=== PATIENT | female | born 1945 | race Caucasian/White ===

== ENCOUNTER 2023-02-26 10:16 | Inpatient (IN) | payer OTHER, BC ==
--- OUTSIDE RECORDS SUMMARY | 2023-03-04 11:31 | XMS REPORT | Continuity of Care Document ---
:1945 Author Organization [facility] t Address [address] [facility] [address] [place] [address] Care Team Providers Name Role Phone Ryann Barrios MD Primary Care Physician CHRISTIANO GONZALES Attending Clinician Unavailable Irais Person MD Attending Clinician Mariana CORADO, Maricarmen Attending Clinician Christiano Gonzales MD Attending Clinician IRAIS PERSON Attending Clinician Unavailable Dominique Jernigan MD Attending Clinician Ethan Singh Attending Clinician IRAIS PERSON Attending Clinician Unavailable PAULA DIXON Attending Clinician Unavailable Cheli Attending Clinician Unavailable Ryann Barrios Attending Clinician Unavailable MANDIE LARA Attending Clinician Unavailable MYA HARDEN Attending Clinician Unavailable Himanshu Del Valle Attending Clinician Unavailable JAMES SAMUEL Attending Clinician Unavailable IVANNA PAVON Attending Clinician Unavailable MARIELA ROMERO Attending Clinician Unavailable IRAIS PERSON Admitting Clinician Unavailable Jonathan_Thien Admitting Clinician Unavailable Himanshu Del Valle Admitting Clinician Unavailable Payers Payer Name Policy Type Policy Number Effective Date Expiration Date Fabricio thomson MEDICARE A B [id number] 2010 00:00:00 [place] [id number] 2012 [place] 00:00:00 MEDICARE PART A \\T\\ [id number] B - MEDICARE MEDICARE SUPPLEMENT [id number] [place]: [id number] 2010 [employer] 00:00:00 [place] [id number] 2012 - PLAN F (MEDICARE 00:00:00 SUPPLEMENT) Problems Condition Condition Condition Status Onset Resolution Last Treating Co mments Source Name Details Category Date Date Treatment Clinician Date Acute Acute Disease Active [facility] respirator respirator 5-12 Nely kes y y 00:00: Medical insufficie insufficie 00 Ce nter ncy ncy 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 tic hernia 5-10 Co llege 00:00: of 00 Medicin e [id number] Problem Active Common [facility] [id number] Problem Active Common [facility] [id number] Problem Active Common [facility] [id number] Problem Active [facility] Anemia Anemia Problem Active [facility] Essential Essential Problem Active [facility] hypertensi Hypertensi da on on Medical Group Ecchymosis Ecchymosis Problem Active [facility] Gastroesop Gastroesop Problem Active M [facility] hageal hageal da reflux Reflux Medical disease Disease Group Fatigue Fatigue Problem Active [facility] Computed Computed Problem Active [facility] tomography Tomography da result Result Medical abnormal Abnormal Group 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 Nely kes geal geal Medical hernia s/p hernia s/p Ce nter EGD, EGD, robotic robotic laparoscop laparoscop ic GPEH ic GPEH repair, repair, gastropexy gastropexy , , bilateral bilateral ChT ChT placement placement 02/17/2023 02/17/2023 Allergies, Adverse Reactions, Alerts Allergy Allergy Status Severity Reaction(s) Onset Inactive Treating Comm ents Source Name Type Date Date Clinician CODEINE Allergy Active SLE 02-16 00:00: 00 Codeine Propensi Active Hives, [facility]: Medical reaction 00 Center s Aspirin Propensi Active GI [facility] ty to 5-10 College adverse 00:00: of reaction 00 Medicin s to e drug Denosuma Propensi Active Other (See Ba ylor b ty to Comments) 02-15 College adverse 00:00: of reaction 00 Medicin s to e drug Codeine Propensi Active Itching [facility] ty to 9-06 College adverse 00:00: of reaction 00 Medicin s to e drug Morphine Propensi Active [facility] ty to 8-24 College adverse 00:00: of reaction 00 Medicin s to e drug Acetamin Propensi Active 2011-10 [facility] ophen ty to 0-11 [place] adverse 00:00: of reaction 00 Medicin s to e drug Diphenhy Propensi Active 2011-10 [facility] dramine ty to 0-11 College adverse 00:00: of reaction 00 Medicin s to e drug Aspirin Allergy Active Fatal Abdominal [facility] [facility] to pain da substan Medical e Group Codeine Allergy Active Moderate Other [facility] to to severe da [facility] Medical e Group codeine Drug Active Common allergy [facility] Social History Social Habit Start Date Stop Date Quantity Comments Source Gender identity [facility] Sexual orientation [facility] [employer] History of Tobacco Common [facility] Exposure to 2023-02-06 2023-02-16 Not sure [facility] SARS-CoV-2 (event) 00:00:00 17:08:00 Medica l Center Tobacco use and 2023-02-15 2023-02-15 Smokeless tobacco [facility] [place] exposure 00:00:00 00:00:00 non-user of Medicine Alcohol intake 2023-02-15 2023-02-15 Lifetime [facility] Col lege 00:00:00 00:00:00 non-drinker of Medicine (finding) History of Social 2023-02-15 2023-02-15 [facility] College function 00:00:00 00:00:00 of Medicine Sex [birth year] [facility] [address] Nely kes 00:00:00 00:00:00 Medical Center Smoking Status Start Date Stop Date Source Never smoked tobacco [facility] of Medicine Medications Ordered Filled Start Stop Current Ordering Indication Dosage Frequency Signature Comments Components Source Medication Medication Date Date Medication? Clinician (SIG) Name Name lidocaine Yes 2{patch Q24H Place [address] (LIDODERM) 03-04 } patches [facility] 4 % patch 00:00: onto the Medi tony 00 skin in Center the morning. ramipriL 2023- Yes 10mg QD Take [address] [facility] (ALTACE) 10 03-04 05-26 capsule [facility] MG capsule 00:00: 23:59 (10 mg Medi tony 00 :00 total) by Center mouth in the morning. HYDROcodone 2022- No 1{tbl} Take [address] [facility] - [facility] 12:18: 00:00 mouth Medic al 5-325) 42 :00 every 4 Center 5-325 mg (four) per tablet hours as needed. folic acid Yes folic acid [facility] (FOLVITE) 1 - 1 mg [facility] MG tablet 12:18: tablet Medica l 41 TAKE 1 Center TABLET BY MOUTH EVERY DAY cholecalcif Yes Vitamin D3 [facility] en, 03-03 100 mcg [facility] vitamin D3, 12:18: (4,000 Medi tony (Vitamin 41 unit) Center D3) 100 mcg capsule (4,000 1TAB PO QD unit) Cap erythromyci Yes 250mg Take 6.[address] n 5-26 mLs (250 [facility] ethylsuccin 00:00: mg total) M edical ate (EES) 00 by mouth Center 200 mg/5 mL in the suspension morning and 6.3 mLs (250 mg total) at noon and 6.3 mLs (250 mg total) in the evening. Take with meals. calcium 2023- Yes 500mg Take [address] [facility] carbonate 5-26 05-25 tablet [facility] (TUMS) 500 00:00: 23:59 (500 mg Med ical mg chewable 00 :00 total) by [address] ter tablet mouth 3 (three) times daily as needed. levalbutero 2023- Yes 1.26mg Take [address] [address] l (XOPENEX) 03-03 05-25 (1.26 mg [facility] 0.63 mg/3 00:00: 23:59 total) by Me dical mL 00 :00 nebulizati Center nebulizer on every 4 solution (four) hours. HYDROcodone 2022- Yes 1{tbl} Take [address] -acetaminop - 06-05 tablet by Nely richards hen (NORCO 00:00: 23:59 mouth Medic al 5-325) 00 :00 every 4 Center 5-325 mg (four) per tablet hours as needed for up to 10 days. Max Daily Amount: 6 tablets aluminum & 2022- Yes 30mL Take [address] [facility] magnesium - 06-05 mLs by [facility] hydroxide-s 00:00: 23:59 mouth Medi tony imethicone 00 :00 every 6 Center (MAALOX (six) PLUS) hours as 400-400-40 needed for mg/5 mL up to 10 suspension days. ondansetron 2022- Yes 4mg Take [address] [facility] (ZOFRAN) 4 03-03 06-02 tablet (4 [facility] MG tablet 00:00: 23:59 mg total) Me dical 00 :00 by mouth Center every 8 (eight) hours as needed for Nausea for up to 7 days. acetylcyste 2022- No 2mL Q.5D Take [address] ine 20% - 05-27 by [facility] (MucoMYST) 00:00: 00:00 nebulizati Medical 200 mg/mL 00 :00 on in the Cente r (20 %) morning nebulizer and 2 mLs solution before bedtime. . folic acid Yes folic acid [facility] (FOLVITE) 1 5-12 1 mg [facility] MG tablet 06:23: tablet Medica l 20 TAKE 1 Center TABLET BY MOUTH EVERY DAY HYDROcodone 2022-0 Yes 1{tbl} Take [address] -acetaminop 5-12 tablet by [facility] tabatha (NORCO 06:23: mouth Medica l 5-325) 20 every 4 Center 5-325 mg (four) per tablet hours as needed. cholecalcif 0 Yes Vitamin D3 [facility] en, 5-12 [facility] vitamin D[facility], 06:23: (4,000 Medi tony (Vitamin 20 unit) Center D3) 100 mcg capsule (4,000 1TAB PO QD unit) Cap Aspirin-Caf Yes Take by Junior kemp (BC 5-10 mouth. [place] FAST PAIN 13:27: of RELIEF OR) 48 Medicin e famotidine 0 Yes 20mg Take 1 [facility] (PEPCID) 20 5-10 Tablet by Col lege MG tablet 13:27: mouth two of 48 times Medicin daily. e folic acid 0 Yes 1mg Take 1 [facility] (FOLVITE) 1 5-10 Tablet by Col lege MG tablet 13:27: mouth of 48 daily. Medicin e sucralfate 0 Yes 1g Take 1 [facility] (CARAFATE) 5-10 Tablet by [facility]aran ege 1 g tablet 13:27: mouth 3 of 48 times Medicin daily. e Ramipril 5 0 Yes 5mg 5 mg. [facility] MG CAPS 5-10 [place] 13:27: of 48 Medicin e prednisoLON Yes 1[drp] Place 1 [facility] E acetate 5-10 Drop into Colle (PRED 13:27: the right of FORTE) 1 % 48 eye 3 Medicin ophthalmic times e suspension daily. hydrocodone 0 Yes 1{tbl} Take 1 [facility] -acetaminop 5-10 Tablet by Col lege hen (NORCO) 13:27: mouth of 5-325 mg 48 every 4 Medicin tablet hours as e needed. dexamethaso Yes Inject Bay[facility] or ne 5-10 into the College (DECADRON) 13:27: muscle of 4 mg/mL 48 once. Medicin injection e Cholecalcif 0 Yes Vitamin D3 [facility] 100 5-10 100 mcg College MCG (4000 13:27: (4,000 of UT) CAPS 48 unit) Medicin capsule e 1TAB PO QD calcitonin, 2023-0 Yes 1{spray 1 [place] by [facility] bertin, 5-10 } Nasal College (MIACALCIN) 13:27: route of 200 48 daily. Medicin UNIT/ACT e nasal spray famotidine 2023-0 Yes 20mg Q.5D Take 1 [facility] (PEPCID) 20 4-25 tablet (20 Nely kes MG tablet 00:00: mg total) Med ical 00 by mouth Center in the morning and 1 tablet (20 mg total) before bedtime. predniSONE 2023-0 Yes 10mg QD Take 1 [facility] (DELTASONE) 4-25 tablet (10 Nely kes 10 MG 00:00: mg total) Medical tablet 00 by mouth Center in the morning. omeprazole 2023-0 Yes 20mg QD Take 1 [facility] (PriLOSEC) 4-25 capsule [facility] 20 MG 00:00: (20 mg Medical capsule 00 total) by Center mouth in the morning. sucralfate 2023-0 Yes 1g [id number] Take [address] [facility] (CARAFATE) 4-25 [id number] tablet (1 [facility] 1 gram 00:00: 3D g total) Medical tablet 00 by mouth Center in the morning and 1 tablet (1 g total) at noon and 1 tablet (1 g total) in the evening. famotidine 2023-0 Yes 20mg Q.5D Take 1 [facility] (PEPCID) 20 4-25 tablet (20 Nely kes MG tablet 00:00: mg total) Med ical 00 by mouth Center in the morning and 1 tablet (20 mg total) before bedtime. predniSONE 2023-0 Yes 10mg QD Take 1 [facility] (DELTASONE) 4-25 tablet (10 Nely kes 10 MG 00:00: mg total) Medical tablet 00 by mouth Center in the morning. omeprazole 2023-0 Yes 20mg QD Take 1 [facility] (PriLOSEC) 4-25 capsule [facility] 20 MG 00:00: (20 mg Medical capsule 00 total) by Center mouth in the morning. sucralfate 2023-0 Yes 1g [id number] Take [address] [facility] (CARAFATE) 4-25 [id number] tablet (1 [facility] 1 gram 00:00: 3D g total) Medical tablet 00 by mouth Center in the morning and 1 tablet (1 g total) at noon and 1 tablet (1 g total) in the evening. ramipriL 2023-0 Yes 5mg QD Take [address] [facility] (ALTACE) 5 3-25 capsule (5 [facility] MG capsule 00:00: mg total) Me dical 00 by mouth Center in the morning. ramipriL 2023-0 2023- No 5mg QD Take [address] [facility] (ALTACE) 5 3-25 05-26 capsule (5 Nely kes MG capsule 00:00: 00:00 mg total) M edical 00 :00 by mouth Center in the morning. Estradiol Estradiol 1-0 No 0.1 MG/GM 0.1 MG/GM 06-09 00:00: 00 Estradiol Estradiol 2021-0 No 0.1 MG/GM 0.1 MG/GM 06-09 00:00: 00 Estradiol Estradiol 2021-0 No 0.1 MG/GM 0.1 MG/GM 06-09 00:00: 00 Omeprazole Omeprazole No QD 20 MG 20 MG Folic Acid Folic Acid No 1{table QD 1 MG 1 MG t} Hydroxychlo Hydroxychlo No roquine roquine Sulfate 200 Sulfate 200 MG MG Minocycline Minocycline No 1{capsu BID HCl 100 MG HCl 100 MG le} Movantik 25 Movantik 25 No 1{table QD MG MG t_in_th e_morni ng} Ramipril 5 Ramipril 5 No 1{capsu QD MG MG le} Calcitonin Calcitonin No QD ([place]) ([place]) 200 200 UNIT/ACT UNIT/ACT Ferrous Ferrous No Fumarate Fumarate 325 (106 325 (106 Fe) MG Fe) MG Folic Acid Folic Acid No 1{table QD 1 MG 1 MG t} Forteo 620 Forteo 620 No .08{ml} QD MCG/2.48ML MCG/2.48ML Vitamin D Vitamin D No Omeprazole Omeprazole No QD 20 MG 20 MG Folic Acid Folic Acid No 1{table QD 1 MG 1 MG t} Hydroxychlo Hydroxychlo No roquine roquine Sulfate 200 Sulfate 200 MG MG Minocycline Minocycline No 1{capsu BID HCl 100 MG HCl 100 MG le} Movantik 25 Movantik 25 No 1{table QD MG MG t_in_th e_morni ng} Ramipril 5 Ramipril 5 No 1{capsu QD MG MG le} Calcitonin Calcitonin No QD ([place]) ([place]) 200 200 UNIT/ACT UNIT/ACT Ferrous Ferrous No Fumarate Fumarate 325 (106 325 (106 Fe) MG Fe) MG Folic Acid Folic Acid No 1{table QD 1 MG 1 MG t} alendronate alendronate No alendronat [place] 70 mg 70 mg e 70 mg da tablet TAKE tablet TAKE tablet Medical 1 TABLET BY 1 TABLET BY TAKE 1 Group MOUTH EVERY MOUTH EVERY TABLET BY WEEK WEEK MOUTH EVERY WEEK amoxicillin amoxicillin No amoxicilli [facility] 500 500 n 500 da mg-potassiu mg-potassiu mg-potassi Medical m m um Group clavulanate clavulanate clavulanat 125 mg 125 mg e 125 mg tablet TAKE tablet TAKE tablet 1 TABLET BY 1 TABLET BY TAKE 1 MOUTH EVERY MOUTH EVERY TABLET BY 12 HOURS 12 HOURS MOUTH FOR 7 DAYS FOR 7 DAYS EVERY 12 DIRECTED DIRECTED HOURS FOR 7 DAYS DIRECTED calcitonin calcitonin No calcitonin [place] (salmon) (salmon) (salmon) da 200 200 200 Medical unit/actuat unit/actuat unit/actua Group ion nasal ion nasal tion nasal spray SPRAY spray SPRAY spray ONCE IN ONE ONCE IN ONE SPRAY ONCE NOSTRIL NOSTRIL IN ONE DAILY DAILY NOSTRIL DAILY diclofenac diclofenac No diclofenac [place] 1 % topical 1 % topical 1 % d a gel APPLY 2 gel APPLY 2 topical Medical GRAMS GRAMS gel APPLY Group TOPICALLY TOPICALLY 2 GRAMS TO THE TO THE TOPICALLY AFFECTED AFFECTED TO THE AREA TWICE AREA TWICE AFFECTED DAILY DAILY AREA TWICE DAILY fentanyl 25 fentanyl 25 No fentanyl [facility] mcg/hr mcg/hr 25 mcg/hr da transdermal transdermal transderma Medical patch APPLY patch APPLY l patch Group 1 PATCH 1 PATCH APPLY 1 TOPICALLY TOPICALLY PATCH TO THE SKIN TO THE SKIN TOPICALLY EVERY 72 EVERY 72 TO THE HOURS HOURS SKIN EVERY 72 HOURS FeroSul 325 FeroSul 325 No FeroSul [place] mg (65 mg mg (65 mg 325 mg (65 da iron) iron) mg iron) Medical tablet TAKE tablet TAKE tablet Group 1 TABLET BY 1 TABLET BY TAKE 1 MOUTH TWICE MOUTH TWICE TABLET BY DAILY DAILY MOUTH TWICE DAILY folic acid folic acid No folic acid [place] 1 mg tablet 1 mg tablet 1 mg d a TAKE 1 TAKE 1 tablet Medical TABLET BY TABLET BY TAKE 1 [place] up MOUTH EVERY MOUTH EVERY TABLET BY DAY DAY MOUTH EVERY DAY Forteo 20 Forteo 20 No Forteo 20 [place] mcg/dose mcg/dose mcg/dose da (600 (600 (600 Medical mcg/2.4 mL) mcg/2.4 mL) mcg/2.4 Group subcutaneou subcutaneou mL) s pen s pen subcutaneo injector injector us pen INJECT 20 INJECT 20 injector MCG UNDER MCG UNDER INJECT 20 THE SKIN THE SKIN MCG UNDER EVERY DAY EVERY DAY THE SKIN EVERY DAY hydrocodone hydrocodone No hydrocodon [place] 10 10 e 10 da mg-acetamin mg-acetamin mg-acetami Medical ophen 325 ophen 325 nophen 325 Group mg tablet mg tablet mg tablet TAKE 1 TAKE 1 TAKE 1 TABLET BY TABLET BY TABLET BY MOUTH EVERY MOUTH EVERY MOUTH 4 TO 6 4 TO 6 EVERY 4 TO HOURS HOURS 6 HOURS NEEDED NEEDED NEEDED minocycline minocycline No minocyclin [facility] 100 mg 100 mg e 100 mg da capsule capsule capsule Medica l TAKE 1 TAKE 1 TAKE 1 Group CAPSULE BY CAPSULE BY CAPSULE BY MOUTH EVERY MOUTH EVERY MOUTH 12 HOURS 12 HOURS EVERY 12 HOURS Movantik 25 Movantik 25 No Movantik [place] mg tablet mg tablet 25 mg da TAKE 1 TAKE 1 tablet Medical TABLET BY TABLET BY TAKE 1 [place] up MOUTH EVERY MOUTH EVERY TABLET BY DAY DAY MOUTH EVERY DAY nitrofurant nitrofurant No nitrofuran [place] oin oin toin da monohydrate monohydrate monohydrat Medical /macrocryst /macrocryst e/macrocry Group als 100 mg als 100 mg stals 100 capsule capsule mg capsule TAKE 1 TAKE 1 TAKE 1 CAPSULE BY CAPSULE BY CAPSULE BY MOUTH TWICE MOUTH TWICE MOUTH A WEEK A WEEK TWICE A ALTERNATING ALTERNATING WEEK WITH ONE OF WITH ONE OF ALTERNATIN PYRIDIUM PYRIDIUM G WITH ONE OF PYRIDIUM omeprazole omeprazole No omeprazole [place] 20 mg 20 mg 20 mg da capsule,del capsule,del capsule,de Medical ayed ayed layed Group release release release TAKE 1 TAKE 1 TAKE 1 CAPSULE BY CAPSULE BY CAPSULE BY MOUTH EVERY MOUTH EVERY MOUTH DAY DAY EVERY DAY phenazopyri phenazopyri No phenazopyr [place] dine 200 mg dine 200 mg idine 200 da tablet TAKE tablet TAKE mg tablet Medical 1 TABLET BY 1 TABLET BY TAKE 1 Group MOUTH TWICE MOUTH TWICE TABLET BY A WEEK A WEEK MOUTH ALTERNATING ALTERNATING TWICE A WITH 1 WEEK WITH 1 WEEK WEEK OF MACROBID OF MACROBID ALTERNATIN G WITH 1 WEEK OF MACROBID prednisone prednisone No prednisone [place] 10 mg 10 mg 10 mg da tablet TAKE tablet TAKE tablet Medical 1 TABLET BY 1 TABLET BY TAKE 1 Group MOUTH EVERY MOUTH EVERY TABLET BY DAY DAY MOUTH EVERY DAY ramipril 5 ramipril 5 No ramipril 5 [place] mg capsule mg capsule mg capsule da TAKE 1 TAKE 1 TAKE 1 Medical CAPSULE BY CAPSULE BY CAPSULE BY Group MOUTH EVERY MOUTH EVERY MOUTH DAY DAY EVERY DAY sucralfate sucralfate No sucralfate [place] 1 gram 1 gram 1 gram da tablet TAKE tablet TAKE tablet Medical 1 TABLET BY 1 TABLET BY TAKE 1 Group MOUTH THREE MOUTH THREE TABLET BY TIMES DAILY TIMES DAILY MOUTH THREE TIMES DAILY Xiidra 5 % Xiidra 5 % No Xiidra 5 % [facility] eye drops eye drops eye drops da in a in a in a Medical dropperette dropperette dropperett Group e Zenpep Zenpep No Zenpep [place] 40,000 40,000 40,000 da unit-126,00 unit-126,00 unit-126,0 Medical 0 0 00 Group unit-168,00 unit-168,00 unit-168,0 0 unit 0 unit 00 unit capsule,del capsule,del capsule,de ayed ayed layed release release release TAKE 1 TAKE 1 TAKE 1 CAPSULE BY CAPSULE BY CAPSULE BY MOUTH THREE MOUTH THREE MOUTH TIMES DAILY TIMES DAILY THREE BEFORE BEFORE TIMES MEALS MEALS DAILY BEFORE MEALS alendronate alendronate No alendronat [place] 70 mg 70 mg e 70 mg da tablet TAKE tablet TAKE tablet Medical 1 TABLET BY 1 TABLET BY TAKE 1 Group MOUTH EVERY MOUTH EVERY TABLET BY WEEK WEEK MOUTH EVERY WEEK amoxicillin amoxicillin No amoxicilli [facility] 500 500 n 500 da mg-potassiu mg-potassiu mg-potassi Medical m m um Group clavulanate clavulanate clavulanat 125 mg 125 mg e 125 mg tablet TAKE tablet TAKE tablet 1 TABLET BY 1 TABLET BY TAKE 1 MOUTH EVERY MOUTH EVERY TABLET BY 12 HOURS 12 HOURS MOUTH FOR 7 DAYS FOR 7 DAYS EVERY 12 DIRECTED DIRECTED HOURS FOR 7 DAYS DIRECTED calcitonin calcitonin No calcitonin [place] (salmon) (salmon) (salmon) da 200 200 200 Medical unit/actuat unit/actuat unit/actua Group ion nasal ion nasal tion nasal spray SPRAY spray SPRAY spray ONCE IN ONE ONCE IN ONE SPRAY ONCE NOSTRIL NOSTRIL IN ONE DAILY DAILY NOSTRIL DAILY diclofenac diclofenac No diclofenac [place] 1 % topical 1 % topical 1 % d a gel APPLY 2 gel APPLY 2 topical Medical GRAMS GRAMS gel APPLY Group TOPICALLY TOPICALLY 2 GRAMS TO THE TO THE TOPICALLY AFFECTED AFFECTED TO THE AREA TWICE AREA TWICE AFFECTED DAILY DAILY AREA TWICE DAILY fentanyl 25 fentanyl 25 No fentanyl [place] mcg/hr mcg/hr 25 mcg/hr da transdermal transdermal transderma Medical patch APPLY patch APPLY l patch Group 1 PATCH 1 PATCH APPLY 1 TOPICALLY TOPICALLY PATCH TO THE SKIN TO THE SKIN TOPICALLY EVERY 72 EVERY 72 TO THE HOURS HOURS SKIN EVERY 72 HOURS FeroSul 325 FeroSul 325 No FeroSul [place] mg (65 mg mg (65 mg 325 mg (65 da iron) iron) mg iron) Medical tablet TAKE tablet TAKE tablet Group 1 TABLET BY 1 TABLET BY TAKE 1 MOUTH TWICE MOUTH TWICE TABLET BY DAILY DAILY MOUTH TWICE DAILY folic acid folic acid No folic acid [place] 1 mg tablet 1 mg tablet 1 mg d a TAKE 1 TAKE 1 tablet Medical TABLET BY TABLET BY TAKE 1 [place] up MOUTH EVERY MOUTH EVERY TABLET BY DAY DAY MOUTH EVERY DAY Forteo 20 Forteo 20 No Forteo 20 [place] mcg/dose mcg/dose mcg/dose da (600 (600 (600 Medical mcg/2.4 mL) mcg/2.4 mL) mcg/2.4 Group subcutaneou subcutaneou mL) s pen s pen subcutaneo injector injector us pen INJECT 20 INJECT 20 injector MCG UNDER MCG UNDER INJECT 20 THE SKIN THE SKIN MCG UNDER EVERY DAY EVERY DAY THE SKIN EVERY DAY hydrocodone hydrocodone No hydrocodon [place] 10 10 e 10 da mg-acetamin mg-acetamin mg-acetami Medical ophen 325 ophen 325 nophen 325 Group mg tablet mg tablet mg tablet TAKE 1 TAKE 1 TAKE 1 TABLET BY TABLET BY TABLET BY MOUTH EVERY MOUTH EVERY MOUTH 4 TO 6 4 TO 6 EVERY 4 TO HOURS HOURS 6 HOURS NEEDED NEEDED NEEDED minocycline minocycline No minocyclin [place] 100 mg 100 mg e 100 mg da capsule capsule capsule Medica l TAKE 1 TAKE 1 TAKE 1 Group CAPSULE BY CAPSULE BY CAPSULE BY MOUTH EVERY MOUTH EVERY MOUTH 12 HOURS 12 HOURS EVERY 12 HOURS Movantik 25 Movantik 25 No Movantik [place] mg tablet mg tablet 25 mg da TAKE 1 TAKE 1 tablet Medical TABLET BY TABLET BY TAKE 1 [place] up MOUTH EVERY MOUTH EVERY TABLET BY DAY DAY MOUTH EVERY DAY nitrofurant nitrofurant No nitrofuran [place] oin oin toin da monohydrate monohydrate monohydrat Medical /macrocryst /macrocryst e/macrocry Group als 100 mg als 100 mg stals 100 capsule capsule mg capsule TAKE 1 TAKE 1 TAKE 1 CAPSULE BY CAPSULE BY CAPSULE BY MOUTH TWICE MOUTH TWICE MOUTH A WEEK A WEEK TWICE A ALTERNATING ALTERNATING WEEK WITH ONE OF WITH ONE OF ALTERNATIN PYRIDIUM PYRIDIUM G WITH ONE OF PYRIDIUM omeprazole omeprazole No omeprazole [place] 20 mg 20 mg 20 mg da capsule,del capsule,del capsule,de Medical ayed ayed layed Group release release release TAKE 1 TAKE 1 TAKE 1 CAPSULE BY CAPSULE BY CAPSULE BY MOUTH EVERY MOUTH EVERY MOUTH DAY DAY EVERY DAY phenazopyri phenazopyri No phenazopyr [place] dine 200 mg dine 200 mg idine 200 da tablet TAKE tablet TAKE mg tablet Medical 1 TABLET BY 1 TABLET BY TAKE 1 Group MOUTH TWICE MOUTH TWICE TABLET BY A WEEK A WEEK MOUTH ALTERNATING ALTERNATING TWICE A WITH 1 WEEK WITH 1 WEEK WEEK OF MACROBID OF MACROBID ALTERNATIN G WITH 1 WEEK OF MACROBID prednisone prednisone No prednisone [place] 10 mg 10 mg 10 mg da tablet TAKE tablet TAKE tablet Medical 1 TABLET BY 1 TABLET BY TAKE 1 Group MOUTH EVERY MOUTH EVERY TABLET BY DAY DAY MOUTH EVERY DAY ramipril 5 ramipril 5 No ramipril 5 [place] mg capsule mg capsule mg capsule da TAKE 1 TAKE 1 TAKE 1 Medical CAPSULE BY CAPSULE BY CAPSULE BY Group MOUTH EVERY MOUTH EVERY MOUTH DAY DAY EVERY DAY sucralfate sucralfate No sucralfate [place] 1 gram 1 gram 1 gram da tablet TAKE tablet TAKE tablet Medical 1 TABLET BY 1 TABLET BY TAKE 1 Group MOUTH THREE MOUTH THREE TABLET BY TIMES DAILY TIMES DAILY MOUTH THREE TIMES DAILY Xiidra 5 % Xiidra 5 % No Xiidra 5 % [place] eye drops eye drops eye drops da in a in a in a Medical dropperette dropperette dropperett Group e Zenpep Zenpep No Zenpep [place] 40,000 40,000 40,000 da unit-126,00 unit-126,00 unit-126,0 Medical 0 0 00 Group unit-168,00 unit-168,00 unit-168,0 0 unit 0 unit 00 unit capsule,del capsule,del capsule,de ayed ayed layed release release release TAKE 1 TAKE 1 TAKE 1 CAPSULE BY CAPSULE BY CAPSULE BY MOUTH THREE MOUTH THREE MOUTH TIMES DAILY TIMES DAILY THREE BEFORE BEFORE TIMES MEALS MEALS DAILY BEFORE MEALS Forteo 620 Forteo 620 No .08{ml} QD MCG/2.48ML MCG/2.48ML Vitamin D Vitamin D No Omeprazole Omeprazole No QD 20 MG 20 MG Folic Acid Folic Acid No 1{table QD 1 MG 1 MG t} Hydroxychlo Hydroxychlo No roquine roquine Sulfate 200 Sulfate 200 MG MG Minocycline Minocycline No 1{capsu BID HCl 100 MG HCl 100 MG le} Movantik 25 Movantik 25 No 1{table QD MG MG t_in_th e_morni ng} Ramipril 5 Ramipril 5 No 1{capsu QD MG MG le} Calcitonin Calcitonin No QD ([place]) ([place]) 200 200 UNIT/ACT UNIT/ACT Ferrous Ferrous No Fumarate Fumarate 325 (106 325 (106 Fe) MG Fe) MG Folic Acid Folic Acid No 1{table QD 1 MG 1 MG t} Forteo 620 Forteo 620 No .08{ml} QD MCG/2.48ML MCG/2.48ML Vitamin D Vitamin D No Vital Signs Vital Name Observation Time Observation Value Comments Source WEIGHT 2023-03-02 08:49:00 54.6 kg WEIGHT 2023-03-01 07:51:00 55.1 kg WEIGHT 2023-02-28 09:00:00 55.7 kg WEIGHT 2023-02-26 09:00:00 58.106 kg WEIGHT 2023-02-25 06:00:00 59.285 kg WEIGHT 2023-02-24 09:00:00 59.8 kg WEIGHT 2023-02-21 06:12:00 58.5 kg WEIGHT 2023-02-19 01:00:00 57.1 kg HEIGHT 2023-02-16 17:00:00 149.9 cm WEIGHT 2023-02-16 17:00:00 54.931 kg WEIGHT 2023-03-02 08:49:00 54.6 kg WEIGHT 2023-03-01 07:51:00 55.1 kg WEIGHT 2023-02-28 09:00:00 55.7 kg WEIGHT 2023-02-26 09:00:00 58.106 kg WEIGHT 2023-02-25 06:00:00 59.285 kg WEIGHT 2023-02-24 09:00:00 59.8 kg WEIGHT 2023-02-21 06:12:00 58.5 kg WEIGHT 2023-02-19 01:00:00 57.1 kg HEIGHT 2023-02-16 17:00:00 149.9 cm WEIGHT 2023-02-16 17:00:00 54.931 kg WEIGHT 2023-03-02 08:49:00 54.6 kg WEIGHT 2023-03-01 07:51:00 55.1 kg WEIGHT 2023-02-28 09:00:00 55.7 kg WEIGHT 2023-02-26 09:00:00 58.106 kg WEIGHT 2023-02-25 06:00:00 59.285 kg WEIGHT 2023-02-24 09:00:00 59.8 kg WEIGHT 2023-02-21 06:12:00 58.5 kg WEIGHT 2023-02-19 01:00:00 57.1 kg HEIGHT 2023-02-16 17:00:00 149.9 cm WEIGHT 2023-02-16 17:00:00 54.931 kg Systolic blood 2023-02-15 18:28:00 157 mm[Hg] [facility] pressure Medicine Diastolic blood 2023-02-15 18:28:00 83 mm[Hg] [facility] pressure Medicine Heart rate 2023-02-15 18:28:00 85 /min [facility] Body temperature 2023-02-15 18:28:00 36.5 Harriet [facility] Body height 2023-02-15 18:28:00 149.9 cm [facility] Body weight 2023-02-15 18:28:00 56.79 kg [facility] BMI 2023-02-15 18:28:00 25.29 kg/m2 [facility] BP Diastolic 2022-11-24 00:00:00 80 mm[Hg] [facility] Height 2022-11-24 00:00:00 64 [in_i] [facility] BMI (Body Mass 2022-11-24 00:00:00 21.3 kg/m2 [facility] BP Systolic 2022-11-24 00:00:00 130 mm[Hg] [facility] Body Weight 2022-11-24 00:00:00 124 [lb_av] [facility] height 2021-10-11 14:30:00 64 [in_i] [facility] weight 2021-10-11 14:30:00 120.8 [lb_av] [facility] temperature 2021-10-11 14:30:00 97.6 [degF] [facility] bmi 2021-10-11 14:30:00 20.73 kg/m2 [facility] oximetry 2021-10-11 14:30:00 98 % [facility] respiratory rate 2021-10-11 14:30:00 16 /min [facility] on [facility] blood pressure 2021-10-11 14:30:00 163 mm[Hg] [facility] - systolic [facility] blood pressure 2021-10-11 14:30:00 82 mm[Hg] [facility] - diastolic [facility] Systolic blood 2023-03-04 08:46:00 165 mm[Hg] [facility] Diastolic blood 2023-03-04 08:46:00 80 mm[Hg] [facility] Heart rate 2023-03-04 08:46:00 88 /min [facility] Body temperature 2023-03-04 08:46:[address] [facility] Respiratory rate 2023-03-04 08:46:00 16 /min [facility] Oxygen saturation in 2023-03-04 08:46:00 92 /min [facility] Arterial blood by Medical Ce nter Pulse oximetry Body weight 2023-03-02 08:49:00 54.6 kg [facility] BMI 2023-03-02 08:49:00 24.31 kg/m2 [facility] Systolic blood 2023-02-17 12:48:00 189 mm[Hg] [facility] Diastolic blood 2023-02-17 12:48:00 82 mm[Hg] [facility] Heart rate 2023-02-17 12:48:00 70 /min [facility] Body temperature 2023-02-17 12:48:[address] [facility] Respiratory rate 2023-02-17 12:48:00 16 /min [facility] Oxygen saturation in 2023-02-17 12:48:00 100 /min [facility] Arterial blood by Medical Ce nter Pulse oximetry Body weight 2023-02-16 17:00:00 54.931 kg [facility] BMI 2023-02-16 17:00:00 24.46 kg/m2 [facility] Body height 2023-02-16 17:00:00 149.9 cm [facility] Procedures Procedure Date / Time Performing Clinician Source Performed BASIC METABOLIC PANEL 2023-03-04 05:37:[address] [facility] CBC W/PLT COUNT & AUTO 2023-03-04 05:37:00 Radha Ariza [facility] DIFFERENTIAL [place] CBC W/PLT COUNT & AUTO 2023-03-04 05:37:00 Radha Ariza [facility] DIFFERENTIAL Center (CELLAVISION MANUAL 2023-03-04 05:37:00 Radha Ariza [facility] DIFF) Center XR CHEST 1 VIEW PORTABLE 2023-03-03 07:36:00 Radha Ariza ea [facility] Medical / BEDSIDE Center BASIC METABOLIC PANEL 2023-03-03 04:35:[address] [facility] CBC W/PLT COUNT & AUTO 2023-03-03 04:35:00 Radha Ariza [facility] DIFFERENTIAL [place] CBC W/PLT COUNT & AUTO 2023-03-03 04:35:00 Radha Ariza [facility] DIFFERENTIAL Center (CELLAVISION MANUAL 2023-03-03 04:35:00 Radha Ariza [facility]) Center XR CHEST 1 VIEW PORTABLE 2023-03-02 07:42:00 Radha Ariza ea [facility] BEDSIDE [place] BASIC METABOLIC PANEL 2023-03-02 05:52:[address] [facility] CBC W/PLT COUNT & AUTO 2023-03-02 05:52:00 Radha Ariza [facility] CBC W/PLT COUNT & AUTO 2023-03-02 05:52:00 Radha Ariza [facility] XR CHEST 1 VIEW PORTABLE 2023-03-01 07:59:00 Radha Ariza ea [facility] BASIC METABOLIC PANEL 2023-03-01 05:22:[address] [facility] CBC W/PLT COUNT & AUTO 2023-03-01 05:22:00 Radha Ariza [facility] CBC W/PLT COUNT & AUTO 2023-03-01 05:22:00 Radha Ariza [facility] XR CHEST 1 VIEW PORTABLE 2023-02-28 18:33:00 Thien Geiger [facility] Rauton [place] ECG 12-LEAD 2023-02-28 15:49:[address] [facility] ECG 12-LEAD 2023-02-28 15:49:07 Unknown, Hl7 Doctor [facility] XR CHEST 1 VIEW PORTABLE 2023-02-28 14:38:00 Radha Ariza ea [facility] BEDSIDE [place] XR CHEST 1 VIEW PORTABLE 2023-02-28 07:31:00 Radha Ariza ea [facility] BEDSIDE [place] BASIC METABOLIC PANEL 2023-02-28 05:08:[address] [facility] CBC W/PLT COUNT & AUTO 2023-02-28 05:08:00 Radha Ariza [facility] CBC W/PLT COUNT & AUTO 2023-02-28 05:08:00 Radha Ariza [facility] BLOOD GAS, VENOUS 2023-02-27 15:49:00 Gina Arteaga [facility] X[facility] CHEST 1 VIEW PORTABLE 2023-02-27 07:09:00 Radha Ariza ea [facility] BASIC METABOLIC PANEL 2023-02-27 05:39:[address] [facility] CBC W/PLT COUNT & AUTO 2023-02-27 05:39:00 Radha Ariza [facility] CBC W/PLT COUNT & AUTO 2023-02-27 05:39:00 Radha Ariza [facility] XR CHEST 1 VIEW PORTABLE 2023-02-26 07:27:00 Radha Ariza ea [facility] BASIC METABOLIC PANEL 2023-02-26 05:20:[address] [facility] CBC W/PLT COUNT & AUTO 2023-02-26 05:20:00 Radha Ariza [facility] CBC W/PLT COUNT & AUTO 2023-02-26 05:20:00 Radha Ariza [facility] (CELLAVISION MANUAL 2023-02-26 05:20:00 Radha Ariza [facility] DIFF) [place] BASIC METABOLIC PANEL 2023-02-25 18:31:00 Yusuf Cunningham [facility] Lon [place] XR CHEST 1 VIEW PORTABLE 2023-02-25 06:21:00 Radha Ariza ea [facility] BASIC METABOLIC PANEL 2023-02-25 03:01:[address] [facility] CBC W/PLT COUNT & AUTO 2023-02-25 03:01:00 Radha Ariza [facility] MAGNESIUM 2023-02-25 03:01:00 Yusuf Cunningham [facility] PHOSPHORUS 2023-02-25 03:01:00 Yusuf Cunningham [facility] CBC W/PLT COUNT & AUTO 2023-02-25 03:01:00 Radha Ariza [facility] POCT-GLUCOSE METER 2023-02-24 12:03:00 Alon [facility] XR CHEST 1 VIEW PORTABLE 2023-02-24 06:05:00 Radha Ariza ea [facility] BASIC METABOLIC PANEL 2023-02-24 03:44:[address] [facility] CBC W/PLT COUNT & AUTO 2023-02-24 03:44:00 Radha Ariza [facility] CBC W/PLT COUNT & AUTO 2023-02-24 03:44:00 Radha Ariza [facility] POCT-GLUCOSE METER 2023-02-23 23:01:00 Alon [facility] POCT-GLUCOSE METER 2023-02-23 11:56:00 Alon [facility] XR CHEST 1 VIEW PORTABLE 2023-02-23 10:19:00 Gina Arteaga [facility] XR CHEST 1 VIEW PORTABLE 2023-02-23 07:35:00 Radha Ariza ea [facility] POCT-GLUCOSE METER 2023-02-23 06:02:00 Alon [facility] CBC W/PLT COUNT & AUTO 2023-02-23 05:16:00 Radha Ariza [facility] BASIC METABOLIC PANEL 2023-02-23 05:16:[address] [facility] CBC W/PLT COUNT & AUTO 2023-02-23 05:16:00 Radha Ariza [facility] CTA CHEST FOR PULMONARY 2023-02-23 00:47:00 Gina Arteaga [facility] EMBOLUS Graciela Center CT ABDOMEN/PELVIS WITH 2023-02-23 00:47:00 Bry So [facility] IV CONTRAST Center POCT-GLUCOSE METER 2023-02-22 23:35:[address] [facility] POCT-GLUCOSE METER 2023-02-22 17:12:[address] [facility] XR ABDOMEN/KUB 1 VIEW 2023-02-22 12:36:00 Yusuf Cunningham [facility] PORTABLE Lon Center POCT-GLUCOSE METER 2023-02-22 11:48:[address] [facility] XR CHEST 1 VIEW PORTABLE 2023-02-22 07:44:00 Radha Ariza ea [facility] / BEDSIDE Center POCT-GLUCOSE METER 2023-02-22 05:06:[address] [facility] CBC W/PLT COUNT & AUTO 2023-02-22 04:06:00 Radha Ariza [facility] BASIC METABOLIC PANEL 2023-02-22 04:06:[address] [facility] CBC W/PLT COUNT & AUTO 2023-02-22 04:06:00 Radha Ariza [facility] POCT-GLUCOSE METER 2023-02-22 00:37:[address] [facility] XR CHEST 1 VIEW PORTABLE 2023-02-21 06:42:00 Yusuf Cunningham [facility] / BEDSIDE Lon [place] CBC W/PLT COUNT & AUTO 2023-02-21 05:49:00 Salome Carpio [facility] CBC W/PLT COUNT & AUTO 2023-02-21 05:49:00 Radha Ariza [facility] BASIC METABOLIC PANEL 2023-02-21 03:33:[address] [facility] POCT-GLUCOSE METER 2023-02-20 17:47:00 Irais Person [facility] POCT-GLUCOSE METER 2023-02-20 15:35:00 Irais Person [facility] POCT-GLUCOSE METER 2023-02-20 11:47:00 Irais Person [facility] CALCIUM, IONIZED 2023-02-20 07:43:[facility]SE [facility] 2023-02-20 07:03:00 Irais Person [facility] XR CHEST 1 VIEW PORTABLE 2023-02-20 04:54:00 Radha Ariza ea [facility] BEDSIDE [place] CBC W/PLT COUNT & AUTO 2023-02-20 02:26:00 [facility] BASIC METABOLIC PANEL 2023-02-20 02:26:[address] [facility] MAGNESIUM 2023-02-20 02:26:00 [facility] W/[facility]T [facility] & AUTO 2023-02-20 02:26:00 Radha Ariza [facility] PHOSPHORUS 2023-02-20 02:26:00 Notjeni [facility] POCT-GLUCOSE METER 2023-02-19 23:53:00 Irais Person [facility] POCT-GLUCOSE METER 2023-02-19 17:28:00 Irais Person [facility] POCT-GLUCOSE METER 2023-02-19 11:33:00 Irais Person [facility] FL ESOPHAGUS 2023-02-19 10:25:[address] [facility] POCT-GLUCOSE METER 2023-02-19 05:29:00 Irais Person [facility] XR CHEST 1 VIEW PORTABLE 2023-02-19 05:15:00 Radha Ariza ea [facility] BEDSIDE Center CBC W/PLT COUNT & AUTO 2023-02-19 03:33:00 Halas, [facility] BASIC METABOLIC PANEL 2023-02-19 03:33:[address] [facility] MAGNESIUM 2023-02-19 03:33:00 [facility] W/[facility]T COUNT & AUTO 2023-02-19 03:33:00 Radha Ariza [facility] POCT-GLUCOSE METER 2023-02-19 01:13:00 Irais Person [facility] POCT-GLUCOSE METER 2023-02-18 18:24:00 Alon [facility] POCT-GLUCOSE METER 2023-02-18 11:35:00 Alon [facility] XR CHEST 1 VIEW PORTABLE 2023-02-18 03:08:00 Radha Ariza ea [facility] / BEDSIDE [place] CBC W/PLT COUNT & AUTO 2023-02-18 02:23:00 [facility] BLOOD GAS, ARTERIAL 2023-02-18 02:23:00 [facility] BASIC METABOLIC PANEL 2023-02-18 02:23:[address] [facility] MAGNESIUM 2023-02-18 02:23:00 [facility] CBC W/PLT COUNT & AUTO 2023-02-18 02:23:00 Radha Ariza [facility] POCT-GLUCOSE METER 2023-02-17 23:32:00 Irais Person [facility] POCT-GLUCOSE METER 2023-02-17 15:36:00 Irais Person [facility] BLOOD GAS, ARTERIAL 2023-02-17 15:20:00 [facility] CALCIUM, IONIZED 2023-02-17 15:20:00 [facility] CBC W/PLT COUNT & AUTO 2023-02-17 15:18:00 [facility] BASIC METABOLIC PANEL 2023-02-17 15:18:00 [facility] MAGNESIUM 2023-02-17 15:18:00 [facility] PROTHROMBIN TIME/INR 2023-02-17 15:18:00 [facility] CBC W/PLT COUNT & AUTO 2023-02-17 15:18:00 [facility] DIFFERENTIAL [place] XR CHEST 1 VIEW PORTABLE 2023-02-17 14:44:00 [facility] / BEDSIDE Center XR ABDOMEN/KUB 1 VIEW 2023-02-17 12:50:00 [facility] PORTABLE Center GLUCOSE-STAT LAB 2023-02-17 09:56:17 Rhona [facility] POTASSIUM-STAT LAB 2023-02-17 09:56:17 Rhona [facility] TISSUE EXAM 2023-02-17 09:53:[address] [facility] SARS-COV2/RT-PCR ([facility] & 2023-02-17 08:41:57 Irais Person [facility] REF LABS) Center RRL CRITICAL LABS 2023-02-17 08:12:25 [facility] (ABG,NA,K,H&H,GLUCOSE) [place] BLOOD GAS, ARTERIAL 2023-02-17 08:12:25 [facility] SODIUM NA-STAT LAB 2023-02-17 08:12:25 [facility] POTASSIUM-STAT LAB 2023-02-17 08:12:25 [facility] GLUCOSE-STAT LAB 2023-02-17 08:12:25 [facility] HGB/HCT (H&H) - STAT LAB 2023-02-17 08:12:25 [facility] ROBOTIC 2023-02-17 07:30:00 Irais Person [facility] LAPAROSCOPY,HERNIORRHAPH Center Y HIATAL PROCEDURE W/ DAVINCI XI 2023-02-17 07:30:[address] [facility] EGD 2023-02-17 07:30:00 Irais Person [facility] (ESOPHAGOGASTRODUODENOSC Center OPY) INSERTION, PIGTAIL 2023-02-17 07:30:00 Irais Person [facility] CATHETER, PLEURAL Center ECG 12-LEAD 2023-02-17 02:50:[address] [facility] ABORH, MANUAL 2023-02-16 20:16:[address] [facility] CT CHEST WITHOUT IV 2023-02-16 19:43:00 Yusuf Cunningham [facility] CONTRAST [facility] CBC W/PLT COUNT & AUTO 2023-02-16 18:07:00 Yusuf Cunningham [facility] DIFFERENTIAL [facility] COMPREHENSIVE METABOLIC 2023-02-16 18:07:00 Yusuf Cunningham [facility] PANEL [facility] PT/APTT 2023-02-16 18:07:00 Yusuf Cunningham [facility] TYPE AND SCREEN, 2023-02-16 18:07:00 Yusuf Cunningham [facility] AUTOMATED [facility] CBC W/PLT COUNT & AUTO 2023-02-16 18:07:00 Yusuf Cunningham [facility] DIFFERENTIAL [facility] XR CHEST 1 VIEW PORTABLE 2023-02-16 17:25:00 Yusuf Cunningham [facility] / BEDSIDE [facility] Plan of Care Planned Activity Planned Date Details Comments Source Future Scheduled 2023-06-[address] [facility] 00:00:00 (Season Ended) [code = Medic ar Center INFLUENZA VACCINE (Season Ended)] Future Scheduled 2023-06-[address] [facility] 00:00:00 (Season Ended) [code = Medic al Center INFLUENZA VACCINE (Season Ended)] Future Scheduled 2023-02-22 COVID-19 Vaccine (#1) Ba [facility] of Test 13:52:12 [code = COVID-19 Medicine Vaccine (#1)] Future Scheduled 2023-02-22 TETANUS SHOT (ADULT) [facility] of Test 13:52:12 [code = TETANUS SHOT Medicin e (ADULT)] Future Scheduled 2023-02-22 BMI Follow Up Plan [facility] of Test 13:52:12 [code = BMI Follow Up Medici ne Plan] Future Scheduled 2023-02-22 Hepatitis C screening [facility] of Test 13:52:12 (procedure) [code = Medicine [id number]] Future Scheduled 2023-02-22 ZOSTER VACCINE ([address] [facility] of Test 13:52:12 2) [code = ZOSTER Medicine VACCINE (1 of 2)] Future Scheduled 2023-02-22 Medicare Awv (Initial) B [facility] Test 13:52:12 [code = Medicare Awv Medicin e (Initial)] Future Scheduled 2023-02-22 Screening for [facility] of Test 13:52:12 osteoporosis Medicine (procedure) [code = [id number]] Future Scheduled 2023-02-22 Pneumococcal 65+ (1 - Ba [facility] of Test 13:52:12 PCV) [code = Medicine Pneumococcal 65+ (1 - PCV)] Future Scheduled 2023-02-22 FLU VACCINE > 6 MONTHS B [facility] Test 13:52:12 [code = FLU VACCINE > Medici ne 6 MONTHS] Future Scheduled 2023-02-22 Fall Screen [code = [facility] of Test 13:52:12 Fall Screen] Medicine Future Scheduled 2022-10-[address] [facility] 00:00:00 (12+) [code = Medical Center DEPRESSION SCREENING (12+)] Future Scheduled 2022-10-09 FALLS RISK SCREENING [facility] 00:00:00 [code = FALLS RISK Medical C enter SCREENING] Future Scheduled 2022-10-[address] [facility] 00:00:00 (12+) [code = Medical Center DEPRESSION SCREENING (12+)] Future Scheduled 2022-10-09 FALLS RISK SCREENING [facility] 00:00:00 [code = FALLS RISK Medical C enter SCREENING] Future Scheduled 2011-12-[address] [facility] 00:00:00 WELLNESS (YEAR 2 or Medical Center FIRST YEAR if no IPPE) [code = MEDICARE ANNUAL WELLNESS (YEAR 2 or FIRST YEAR if no IPPE)] Future Scheduled 2011-12-[address] [facility] 00:00:00 WELLNESS (YEAR 2 or Medical Center FIRST YEAR if no IPPE) [code = MEDICARE ANNUAL WELLNESS (YEAR 2 or FIRST YEAR if no IPPE)] Future Scheduled 2010 PNEUMOCOCCAL 65+ YRS [facility] 00:00:00 (1 - PCV) [code = Medical Ce nter PNEUMOCOCCAL 65+ YRS (1 - PCV)] Future Scheduled 2010 PNEUMOCOCCAL 65+ YRS [facility] 00:00:00 (1 - PCV) [code = Medical Ce nter PNEUMOCOCCAL 65+ YRS (1 - PCV)] Future Scheduled 1995-12-19 SHINGLES VACCINES ([address] [facility] 00:00:00 of 2) [code = SHINGLES Medic al Center VACCINES (1 of 2)] Future Scheduled 1995-12-19 SHINGLES VACCINES ([address] [facility] 00:00:00 of 2) [code = SHINGLES Medic al Center VACCINES (1 of 2)] Future Scheduled 1964 DTAP/TDAP/TD [facility]ACCINES [facility] 00:00:00 (1 - Tdap) [code = Medical C enter DTAP/TDAP/TD VACCINES (1 - Tdap)] Future Scheduled 1964 DTAP/TDAP/TD [facility]ACCINES [facility] 00:00:00 (1 - Tdap) [code = Medical C enter DTAP/TDAP/TD VACCINES (1 - Tdap)] Future Scheduled 1963-12-19 HEPATITIS C SCREENING [facility] 00:00:00 [code = HEPATITIS C Medical Center SCREENING] Future Scheduled 1963-12-19 HEPATITIS C [facility]CREENING [facility] 00:00:00 [code = HEPATITIS C Medical Center SCREENING] Future Scheduled [address] [facility] 00:00:00 Counseling and Medical Cente r Screening (12+) [code = Tobacco Cessation Counseling and Screening (12+)] Future Scheduled [address] [facility] 00:00:00 Counseling and Medical Cente r Screening (12+) [code = Tobacco Cessation Counseling and Screening (12+)] Future Scheduled 1946-06-20 COVID-19 VACCINE (#1) [facility] 00:[facility]:00 [code = COVID-[address] VACCINE (#1)] Future Scheduled 1946-06-20 COVID-19 VACCINE (#1) [facility] 00:00:00 [code = COVID-[address] VACCINE (#1)] Future Scheduled 1945 DXA SCAN [code = DXA [facility] 00:00:00 SCAN[facility] 1945 DXA SCAN [code = DXA [facility] 00:00:00 SCAN] [facility] Encounters Start End Encounter Admission Attending Care Care Encounter Source Date/Time Date/Time Type Type Clinicians Facility Department ID 2023-02-16 Inpatient [facility] Surgery [id number] [facility] 16:04:00 CHRISTIANO 2023-02-16 [facility] Irais Person [facility] [id number] 16:04:00 Encounter MarianaAna Rosag [facility] 2023-02-15 Inpatient [facility] Surgery [id number] [facility] 15:19:40 IRAIS 2021-11-[address] [facility] [id number] Common 14:00:14 [id number] [facility] 2021-11-[address] [facility] [id number] Common 13:46:01 [id number] [facility] 2023-02-28 2023-02-28 [facility] [id number] 00:00:00 00:00:00 [facility] 2023-02-17 2023-02-17 [facility] [id number] 07:30:00 12:51:00 [facility] 2023-02-17 2023-02-17 [facility] [id number] 07:30:00 12:51:00 [facility] 2023-02-17 2023-02-17 Anesthesia Dominique Jernigan [facility] [id number] [facility] 07:19:00 12:51:00 Event Ethan Melgoza [facility] 2023-02-17 2023-02-17 Anesthesia Dominique Jernigan [facility] [id number] [facility] 07:19:00 12:51:00 Event Ethan Melgoza [facility] 2023-02-16 2023-02-16 Travel [facility] [id number] [facility] 00:[facility]00 00:00:00 [facility] 2023-02-16 2023-02-16 Travel [facility] [id number] [facility] 00:[facility] 00:00:00 [facility] 2023-02-15 2023-02-15 Office SOPHIE PERSON [id number] [facility] 12:40:15 15:31:27 Visit IRAIS AMBULATOR [id number] College Y [id number] [facility] [id number] [facility] 810 e 2023-02-07 2023-02-07 Outpatient CHELI DIXON [facility] [id number] [place] 09:50:00 09:50:00 PAULA -[id number] [facility] 2022-11-24 2022-11-24 Outpatient Brown_R MMG [facility] [id number] [place] 00:00:00 00:00:00 0216 [facility] 2022-11-24 2022-11-24 [place] [id number] [place] 00:00:00 00:00:00 0218 [facility] 2022-11-24 2022-11-24 Outpatient Brown_R MMG MMG [id number] [place] 00:00:00 00:00:00 0301 [facility] 2022-11-24 2022-11-24 Outpatient Brown_R MMG MMG [id number] [place] 00:00:00 00:00:00 0302 [facility] 2022-11-24 2022-11-24 Ej [facility] [place] - [id number] M at[place]or 00:00:00 00:00:00 Discovery michelle Bolaños MD: [address] [facility] [place] [place] - [address], [place] [address] , Ph. 2022-08-22 2022-08-22 Outpatient CHELI DIXON, [facility] [id number] [place] 12:28:00 12:28:00 PAULA -[id number] [facility] 2022-08-08 2022-08-08 Outpatient CHELI Neret, [facility] [id number] [place] 10:05:00 10:05:00 Ryann [id number] [facility] 2022-04-02 2022-04-02 Emergency [facility] [id number] [place] 00:41:00 04:24:00 MANDIE [id number] [facility] [facility] 2021-12-24 2021-12-24 Outpatient CHELI DIXON, [facility] [id number] [place] 13:02:00 13:02:00 PAULA -[id number] [facility] 2021-11-29 2021-11-29 Outpatient CHELI Nerabraham, [facility] [id number] [place] 09:24:00 09:24:00 Ryann [id number] [facility] 2021-11-16 2021-11-16 Outpatient EL Neret, [facility] [id number] [place] 12:49:00 12:49:00 Ryann [id number] [facility] 2021-11-04 2021-11-04 Outpatient EL Neret, [facility] [id number] [place] 13:25:00 13:25:00 Ryann [id number] [facility] 2021-10-25 2021-10-25 (TEL) STLMLC STLMLC [id number] [facility] 00:00:00 00:00:00 [facility] 2021-10-11 2021-10-11 OFFICE STLMLC STLMLC [id number] [facility] 00:00:00 00:00:00 VISIT [facility] EST[facility] PT - [facility] LEVEL 4 [facility] 2021-07-27 2021-07-27 [id number] 00:00:00 00:00:00 [facility] 2021-04-07 2021-04-07 Outpatient Brown_R MMG MMG [id number] [place] 05:23:00 05:23:00 [facility] 2021-04-07 2021-04-07 Outpatient Brown_R MMG MMG [id number] [place] 05:23:00 05:23:00 [facility] 2021-04-07 2021-04-07 Outpatient Brown_R MMG MMG [id number] [place] 00:00:00 00:00:00 0210 Medical [facility] 2021-04-07 2021-04-07 Outpatient Brown_R MMG MMG [id number] [place] 00:00:00 00:00:00 0215 Medical [facility] 2020-08-26 2020-08-26 Outpatient Brown_R MMG MMG [id number] [place] 02:26:00 02:26:00 1118 Medical [facility] 2019-11-24 2019-11-24 Emergency ER HARDEN, [facility] [id number] [place] 15:46:00 18:31:00 MYA [id number] [facility] 2018-05-16 2018-06-08 Outpatient EL Neret, [facility] [id number] [place] 11:45:00 00:01:00 Ryann [id number] [facility] 2018-03-02 2018-03-02 Outpatient EL Neret, [facility] [id number] [place] 09:58:00 09:58:00 Raynn [id number] [facility] 2018-01-24 2018-01-24 Outpatient EL Neret, [facility] [id number] [place] 12:23:00 12:23:00 Ryann [id number] [facility] 2017-08-02 2017-08-02 Outpatient EL Neret, [facility] [id number] [place] 08:48:00 08:48:00 Ryann [id number] [facility] 2017-06-14 2017-06-15 Inpatient ER Ivon, [facility] [id number] [place] 21:29:00 15:59:00 Himanshu -[id number] [facility] 2016-04-13 2016-04-13 Outpatient CHELI DIXON, [facility] [id number] [place] 11:47:00 11:47:00 PAULA -[id number] [facility] 2016-03-01 2016-03-01 Emergency ER BA, JAMES [facility] [id number] [place] 13:24:00 16:14:00 -[id number] [facility] 2015-10-08 2015-10-08 Emergency ER PAVON, [facility] [id number] [place] 12:20:00 14:52:00 WAS -[id number] [facility] 2014-09-05 2014-09-05 Emergency ER BA, JAMES [facility] [id number] [place] 02:39:00 04:25:00 -[id number] [facility] 2014-06-01 2014-06-01 Emergency ER HEATHER, [facility] [id number] [place] 12:37:00 15:02:00 [facility] -[id number] [facility] 2012-09-04 2012-09-04 Outpatient CHELI Barrios, [facility] [id number] [place] 10:33:00 10:33:00 [id number] [facility] 2012-07-19 2012-07-20 Inpatient ER Ivon, [facility] [id number] [place] 12:35:00 18:15:00 [facility] -[id number] [facility] Results Test Description Test Time Test Comments Results Result Comments Source (CELLAVISION MANUAL DIFF) 2023-03-04 07:59:33 Test Item Value Reference Range Interpretation Comme nts NEUTROPHILS - REL (CELLAVISION)(BEAKER) (test code = 2816) 81 % LYMPHOCYTES - REL (CELLAVISION)(BEAKER) (test code = 2817) 5 % MONOCYTES - REL (CELLAVISION)(BEAKER) (test code = 2818) 7 % MYELOCYTES - REL (CELLAVISION)(BEAKER) (test code = 2822) 2 % 0-0 H BANDS - REL (CELLAVISION)(BEAKER) (test code = 2826) 5 % 0 -10 NEUTROPHILS - ABS (CELLAVISION)(BEAKER) (test code = 2830) 6.32 K/ul 1.56-6.13 H LYMPHOCYTES - ABS (CELLAVISION)(BEAKER) (test code = 2831) 0.39 K/ul 1.18-3.74 L MONOCYTES - ABS (CELLAVISION)(BEAKER) (test code = 2832) 0.55 K/uL 0.24-0.36 H MYELOCYTES-ABS (CELLAVISION)(BEAKER) (test code = 2837) 0.16 K/uL 0.00-0.00 H BANDS - ABS (CELLAVISION)(BEAKER) (test code = 2840) 0.39 K/uL 0 .00-0.80 TOTAL COUNTED (BEAKER) (test code = 1351) 100 MANUAL NRBC PER 100 CELLS (BEAKER) (test code = 1353) 1 /100 WBC 0-0 H RBC MORPHOLOGY (BEAKER) (test code = 762) Normal WBC MORPHOLOGY (BEAKER) (test code = 487) Normal PLT MORPHOLOGY (BEAKER) (test code = 486) Normal ARTIFACT (CELLAVISION)(BEAKER) (test code = 3432) Present PLATELET CONCENTRATION (CELLAVISION)(BEAKER) (test code = Increased 3438) Gaming Department Head ID - Sandi Sharif comments: Slide comments:CBC W/PLT COUNT & AUTO [id number] 07:59:32 Test Item Value Reference Range Interpretation Comments WHITE BLOOD CELL COUNT (BEAKER) 7.8 K/ L 3.5-10.5 (test code = 775) RED BLOOD CELL COUNT (BEAKER) 3.31 M/ L 3.93-5.22 L (test code = 761) HEMOGLOBIN (BEAKER) (test code = 10.5 GM/DL 11.2-15.7 L 410) HEMATOCRIT (BEAKER) (test code = 32.3 % 34.1-44.9 L 411) MEAN CORPUSCULAR VOLUME (BEAKER) 98 fL 79-95 H (test code = 753) MEAN CORPUSCULAR HEMOGLOBIN 31.7 pg 25.6-32.2 (BEAKER) (test code = 751) MEAN CORPUSCULAR HEMOGLOBIN CONC 32.5 GM/DL 32.2-35.5 (BEAKER) (test code = 752) RED CELL DISTRIBUTION WIDTH 14.2 % 11.7-14.4 (BEAKER) (test code = 412) PLATELET COUNT (BEAKER) (test 565 K/CU MM 150-450 H code = 756) MEAN PLATELET VOLUME (BEAKER) 8.7 fL 9.4-12.3 L (test code = 754) NUCLEATED RED BLOOD CELLS 0 /100 WBC 0-0 (BEAKER) (test code = 413) BASIC METABOLIC [id number] 06:26:54 Test Item Value Reference Range Interpretation Comments SODIUM (BEAKER) 132 meq/L 136-145 L (test code = 381) POTASSIUM 3.9 meq/L 3.5-5.1 (BEAKER) (test code = 379) CHLORIDE (BEAKER) 97 meq/L 98-107 L (test code = 382) CO2 (BEAKER) 23 meq/L 22-29 (test code = 355) BLOOD UREA 6 mg/dL 7-21 L NITROGEN (BEAKER) (test code = 354) CREATININE 0.66 mg/dL 0.57-1.25 (BEAKER) (test code = 358) GLUCOSE RANDOM 86 mg/dL 70-105 (BEAKER) (test code = 652) CALCIUM (BEAKER) 8.1 mg/dL 8.4-10.2 L (test code = 697) EGFR (BEAKER) 90 Interpretatio n of eGFR (test code = mL/min/1.73 values Stage De scription 1092) sq m Result G1 Tiff l or high >=90 G2 Mildly decreased 60-89 G3a Mildl y to moderately 45-5 9 G3b Moderately to s everely 30-44 G4 Severl y decreased 15-29 G5 Kidney failure <15Reported eGF R is based on the CKD-EPI 2020 equation that d oes not use a race coefficientEsti mated GFR is not as accur ate as Creatinine Narda radha in predicting glom erular filtration rate . Estimated GFR is not appl icable for dialysis patien ts Gaming Department Head ID - MARCORAD, CHEST, 1 VIEW, NON [id number] 13:15:00Reason for exam:->post opShould this be performed at the bedside?->[facility] 1945 Sex: FFINAL REPORT Chest, 1 view, 03/03/2023 7:55 AM. History: Postop. Comparison: 03/02/2023. Discussion: The cardiac silhouette is stable. Bilateral pleuroparenchymal opacities are slightly increased, obscuring both hemidiaphragms. There is no pneumothorax. The soft tissues and osseous struct ures are intact. IMPRESSION: Increased bibasilar pleuroparenchymal opacities. Signed: Dominic LernerMDReport Verified Date/Time: 03/03/2023 13:15:32 (CELLAVISION MANUAL DIFF)2023-03-03 07:32:53 Test Item Value Reference Range Interpretation Comments NEUTROPHILS - REL 84 % (CELLAVISION)(BEAKER) (test code = 2816) LYMPHOCYTES - REL 7 % (CELLAVISION)(BEAKER) (test code = 2817) MONOCYTES - REL 4 % (CELLAVISION)(BEAKER) (test code = 2818) METAMYELOCYTES - REL 2 % 0-0 H (CELLAVISION)(BEAKER) (test code = 2821) MYELOCYTES - REL 1 % 0-0 H (CELLAVISION)(BEAKER) (test code = 2822) BANDS - REL (CELLAVISION)(BEAKER) 2 % 0-10 (test code = 2826) NEUTROPHILS - ABS 6.80 K/ul 1.56-6.13 H (CELLAVISION)(BEAKER) (test code = 2830) LYMPHOCYTES - ABS 0.57 K/ul 1.18-3.74 L (CELLAVISION)(BEAKER) (test code = 2831) MONOCYTES - ABS 0.32 K/uL 0.24-0.36 (CELLAVISION)(BEAKER) (test code = 2832) METAMYELOCYTES - ABS 0.16 K/uL 0.00-0.00 H (CELLAVISION)(BEAKER) (test code = 2836) MYELOCYTES-ABS 0.08 K/uL 0.00-0.00 H (CELLAVISION)(BEAKER) (test code = 2837) BANDS - ABS (CELLAVISION)(BEAKER) 0.16 K/uL 0.00-0.80 (test code = 2840) TOTAL COUNTED (BEAKER) (test code = 100 1351) WBC MORPHOLOGY (BEAKER) (test code Normal = 487) PLT MORPHOLOGY (BEAKER) (test code Normal = 486) POLYCHROMATOPHILLIC RBCS(BEAKER) 1+ few (test code = 478) ANISOCYTOSIS (BEAKER) (test code = 1+ few 961) MACROCYTES (BEAKER) (test code = 1+ few 964) ARTIFACT (CELLAVISION)(BEAKER) Present (test code = 3432) PLATELET CONCENTRATION Increased (CELLAVISION)(BEAKER) (test code = 3438) Gaming Department Head ID - Mera OverholtUser comments: Slide comments:CBC W/PLT COUNT & AUTO [id number] 07:32:52 Test Item Value Reference Range Interpretation Comments WHITE BLOOD CELL COUNT (BEAKER) 8.1 K/ L 3.5-10.5 (test code = 775) RED BLOOD CELL COUNT (BEAKER) 3.28 M/ L 3.93-5.22 L (test code = 761) HEMOGLOBIN (BEAKER) (test code = 10.1 GM/DL 11.2-15.7 L 410) HEMATOCRIT (BEAKER) (test code = 32.5 % 34.1-44.9 L 411) MEAN CORPUSCULAR VOLUME (BEAKER) 99 fL 79-95 H (test code = 753) MEAN CORPUSCULAR HEMOGLOBIN 30.8 pg 25.6-32.2 (BEAKER) (test code = 751) MEAN CORPUSCULAR HEMOGLOBIN CONC 31.1 GM/DL 32.2-35.5 L (BEAKER) (test code = 752) RED CELL DISTRIBUTION WIDTH 14.1 % 11.7-14.4 (BEAKER) (test code = 412) PLATELET COUNT (BEAKER) (test 615 K/CU MM 150-450 H code = 756) MEAN PLATELET VOLUME (BEAKER) 9.4 fL 9.4-12.3 (test code = 754) NUCLEATED RED BLOOD CELLS 0 /100 WBC 0-0 (BEAKER) (test code = 413) BASIC METABOLIC [id number] 06:03:26 Test Item Value Reference Range Interpretation Comments SODIUM (BEAKER) 135 meq/L 136-145 L (test code = 381) POTASSIUM 4.0 meq/L 3.5-5.1 (BEAKER) (test code = 379) CHLORIDE (BEAKER) 99 meq/L 98-107 (test code = 382) CO2 (BEAKER) 25 meq/L 22-29 (test code = 355) BLOOD UREA 6 mg/dL 7-21 L NITROGEN (BEAKER) (test code = 354) CREATININE 0.61 mg/dL 0.57-1.25 (BEAKER) (test code = 358) GLUCOSE RANDOM 81 mg/dL 70-105 (BEAKER) (test code = 652) CALCIUM (BEAKER) 8.2 mg/dL 8.4-10.2 L (test code = 697) EGFR (BEAKER) 92 Interpretatio n of eGFR (test code = mL/min/1.73 values Stage De scription 1092) sq m Result G1 Tiff l or high >=90 G2 Mildly decreased 60-89 G3a Mildl y to moderately 45-5 9 G3b Moderately to s everely 30-44 G4 Severl y decreased 15-29 G5 Kidney failure <15Reported eGF R is based on the CKD-EPI 2020 equation that d oes not use a race coefficientEsti mated GFR is not as accur ate as Creatinine Narda garcia in predicting glom erular filtration rate . Estimated GFR i s not applicable for dialysis patients Gaming Department Head ID - ADMINRAD, CHEST, 1 VIEW, NON [id number] 01:45:00Reason for exam:->post opShould this be performed at the bedside?->Yes [facility] 1945 Sex: FFINAL REPORT AP view of the chest dated 03/02/2023 COMPARISON: March 01, 2023 CLINICAL INFORMATION: post op Comment: Heart is normal in size. Pulmonary vasculature is unremarkable. There is a small bilateral pleural effusion with a status post subsegmental atelectasis. The rest of lungs are clear. No pneumothorax is seen. IMPRESSION: Bilateral pleural effusion with bibasilar subsegmentalatelectasis. Signed: Tate Jones [facility] CENTEReport Verified Date/Time: 03/03/2023 01:45:09 BASIC METABOLIC [id number] 06:54:48 Test Item Value Reference Range Interpretation Comments SODIUM (BEAKER) 134 meq/L 136-145 L (test code = 381) POTASSIUM 2.8 meq/L 3.5-5.1 L (BEAKER) (test code = 379) CHLORIDE (BEAKER) 96 meq/L 98-107 L (test code = 382) CO2 (BEAKER) 29 meq/L 22-29 (test code = 355) BLOOD UREA 5 mg/dL 7-21 L NITROGEN (BEAKER) (test code = 354) CREATININE 0.57 mg/dL 0.57-1.25 (BEAKER) (test code = 358) GLUCOSE RANDOM 103 mg/dL 70-105 (BEAKER) (test code = 652) CALCIUM (BEAKER) 8.3 mg/dL 8.4-10.2 L (test code = 697) EGFR (BEAKER) 94 Interpretatio n of eGFR (test code = mL/min/1.73 values Stage De scription 1092) sq m Result G1 Tiff l or high >=90 G2 Mildly decreased 60-89 G3a Mildl y to moderately 45-5 9 G3b Moderately to s everely 30-44 G4 Severl y decreased 15-29 G5 Kidney failure <15Reported eGF R is based on the CKD-EPI 2020 equation that d oes not use a race coefficientEsti mated GFR is not as accur ate as Creatinine Narda radha in predicting glom erular filtration rate . Estimated GFR is not appl icable for dialysis patien ts Gaming Department Head ID - BSCBC W/PLT COUNT & AUTO [id number] 06:13:59 Test Item Value Reference Range Interpretation Comments WHITE BLOOD CELL COUNT (BEAKER) 7.2 K/ L 3.5-10.5 (test code = 775) RED BLOOD CELL COUNT (BEAKER) 3.19 M/ L 3.93-5.22 L (test code = 761) HEMOGLOBIN (BEAKER) (test code = 9.9 GM/DL 11.2-15.7 L 410) HEMATOCRIT (BEAKER) (test code = 31.0 % 34.1-44.9 L 411) MEAN CORPUSCULAR VOLUME (BEAKER) 97 fL 79-95 H (test code = 753) MEAN CORPUSCULAR HEMOGLOBIN 31.0 pg 25.6-32.2 (BEAKER) (test code = 751) MEAN CORPUSCULAR HEMOGLOBIN CONC 31.9 GM/DL 32.2-35.5 L (BEAKER) (test code = 752) RED CELL DISTRIBUTION WIDTH 13.8 % 11.7-14.4 (BEAKER) (test code = 412) PLATELET COUNT (BEAKER) (test 566 K/CU MM 150-450 H code = 756) MEAN PLATELET VOLUME (BEAKER) 9.4 fL 9.4-12.3 (test code = 754) NUCLEATED RED BLOOD CELLS 0 /100 WBC 0-0 (BEAKER) (test code = 413) NEUTROPHILS RELATIVE PERCENT 76 % (BEAKER) (test code = 429) LYMPHOCYTES RELATIVE PERCENT 9 % (BEAKER) (test code = 430) MONOCYTES RELATIVE PERCENT 11 % (BEAKER) (test code = 431) EOSINOPHILS RELATIVE PERCENT 0 % (BEAKER) (test code = 432) BASOPHILS RELATIVE PERCENT 0 % (BEAKER) (test code = 437) NEUTROPHILS ABSOLUTE COUNT 5.50 K/ L 1.56-6.13 (BEAKER) (test code = 670) LYMPHOCYTES ABSOLUTE COUNT 0.66 K/ L 1.18-3.74 L (BEAKER) (test code = 414) MONOCYTES ABSOLUTE COUNT (BEAKER) 0.76 K/ L 0.24-0.36 H (test code = 415) EOSINOPHILS ABSOLUTE COUNT 0.01 K/ L 0.04-0.36 L (BEAKER) (test code = 416) BASOPHILS ABSOLUTE COUNT (BEAKER) 0.02 K/ L 0.01-0.08 (test code = 417) IMMATURE GRANULOCYTES-RELATIVE 3.70 % 0.00-1.00 H PERCENT (BEAKER) (test code = 2801) RAD, CHEST, 1 VIEW, NON [id number] 14:00:00Reason for exam:->post opShould this be performed at the bedside?->Yes [facility] 1945 Sex: FFINAL REPORT Chest, 1 view, 03/01/2023 8:00 AM. History: Postop. Comparison: 02/28/2023. Discussion: The cardiac silhouette is stable. Bilateral perihilar and bibasilar pleuroparenchymal opacities are unchanged. There is no pneumothorax. The soft tissues and osseous structures are intact. IMPRESSION: No significant change. Signed: Dominic Lerner MDReport Verified Date/Time: 03/01/2023 14:00:56 [facility] Electronically signed by: DOMINIC LERNER M.D. on03/01/2023 02:00 PMBASI METABOLIC PANEL 2023-03-01 07:01:03 Test Item Value Reference Range Interpretation Comments SODIUM (BEAKER) 132 meq/L 136-145 L (test code = 381) POTASSIUM 3.0 meq/L 3.5-5.1 L (BEAKER) (test code = 379) CHLORIDE (BEAKER) 95 meq/L 98-107 L (test code = 382) CO2 (BEAKER) 28 meq/L 22-29 (test code = 355) BLOOD UREA 6 mg/dL 7-21 L NITROGEN (BEAKER) (test code = 354) CREATININE 0.60 mg/dL 0.57-1.25 (BEAKER) (test code = 358) GLUCOSE RANDOM 142 mg/dL 70-105 H (BEAKER) (test code = 652) CALCIUM (BEAKER) 8.3 mg/dL 8.4-10.2 L (test code = 697) EGFR (BEAKER) 92 Interpretatio n of eGFR (test code = mL/min/1.73 values Stage De scription 1092) sq m Result G1 Norm al or high >=90 G2 Mildly decreased 60-89 G3a Mildl y to moderately 45-5 9 G3b Moderately to s everely 30-44 G4 Severl y decreased 15-29 G5 Kidney failure <15Reported eGF R is based on the CKD-EPI 2020 equation that d oes not use a race coefficientEsti mated GFR is not as accur ate as Creatinine Narda garcia in predicting glom erular filtration rate . Estimated GFR is not appl icable for dialysis patien ts Gaming Department Head ID - BSCBC W/PLT COUNT & AUTO [id number] 06:08:05 Test Item Value Reference Range Interpretation Comments WHITE BLOOD CELL COUNT (BEAKER) 6.8 K/ L 3.5-10.5 (test code = 775) RED BLOOD CELL COUNT (BEAKER) 3.17 M/ L 3.93-5.22 L (test code = 761) HEMOGLOBIN (BEAKER) (test code = 10.0 GM/DL 11.2-15.7 L 410) HEMATOCRIT (BEAKER) (test code = 30.5 % 34.1-44.9 L 411) MEAN CORPUSCULAR VOLUME (BEAKER) 96 fL 79-95 H (test code = 753) MEAN CORPUSCULAR HEMOGLOBIN 31.5 pg 25.6-32.2 (BEAKER) (test code = 751) MEAN CORPUSCULAR HEMOGLOBIN CONC 32.8 GM/DL 32.2-35.5 (BEAKER) (test code = 752) RED CELL DISTRIBUTION WIDTH 13.8 % 11.7-14.4 (BEAKER) (test code = 412) PLATELET COUNT (BEAKER) (test 520 K/CU MM 150-450 H code = 756) MEAN PLATELET VOLUME (BEAKER) 9.6 fL 9.4-12.3 (test code = 754) NUCLEATED RED BLOOD CELLS 0 /100 WBC 0-0 (BEAKER) (test code = 413) NEUTROPHILS RELATIVE PERCENT 88 % (BEAKER) (test code = 429) LYMPHOCYTES RELATIVE PERCENT 5 % (BEAKER) (test code = 430) MONOCYTES RELATIVE PERCENT 6 % (BEAKER) (test code = 431) EOSINOPHILS RELATIVE PERCENT 0 % (BEAKER) (test code = 432) BASOPHILS RELATIVE PERCENT 0 % (BEAKER) (test code = 437) NEUTROPHILS ABSOLUTE COUNT 5.99 K/ L 1.56-6.13 (BEAKER) (test code = 670) LYMPHOCYTES ABSOLUTE COUNT 0.32 K/ L 1.18-3.74 L (BEAKER) (test code = 414) MONOCYTES ABSOLUTE COUNT (BEAKER) 0.40 K/ L 0.24-0.36 H (test code = 415) EOSINOPHILS ABSOLUTE COUNT 0.00 K/ L 0.04-0.36 L (BEAKER) (test code = 416) BASOPHILS ABSOLUTE COUNT (BEAKER) 0.02 K/ L 0.01-0.08 (test code = 417) IMMATURE GRANULOCYTES-RELATIVE 1.50 % 0.00-1.00 H PERCENT (BEAKER) (test code = 2801) RAD, CHEST, 1 VIEW, NON [id number] 21:32:00Please make sure bed sheets are off patient prior to taking CXRReason for exam:->r/o L apical PTXShould this be performed at the bedside?->Yes [facility] [place] [place] : 1945 Sex: FFINAL REPORT RAD, CHEST, 1 VIEW, NON DEPT INDICATION: r/o L apical PTX COMPARISON: Exam from 4 hours prior FINDINGS: Portable frontal view of the chest. IMPRESSION: Support Lines: None.Lungs and pleura: Unchanged small bilateral pleural effusions with bibasilar hazy airspace opacitiesand diffuse bilateral interstitial opacities. No pneumothorax. Heart and mediastinum: Stable contours. Additional findings: None. Signed: Tate Florestiara Verified Date/Time: 02/28/2023 21:32:20 RAD, CHEST, 1 VIEW, NON [id number] 17:00:00Reason for exam:->CT removal [facility] : 1945 Sex: FFINAL REPORT Chest, one view. HISTORY: CT removal COMPARISON: Radiograph from earlier today IMPRESSION: Interval removal of chest tube. No definite pneumothorax is seen, but evaluation is suboptimal due to multiple sheets overlying the patient causing lines. An additional radiograph isrecommended after removal of the sheets since there is a possible trace left apical pneumothorax. Moderate bilateral pleural effusions with unchanged bibasilar lung opacities and bilateral pulmonary edema. The cardiac silhouette is unchanged in size. No acute bone abnormality. Signed: Mary Huber Verified Date/Time: 02/28/2023 17:00:40 RAD, CHEST, 1 VIEW, NON [id number] 13:43:00Reason for exam:->post opShould this be performed at the bedside?->Yes [facility] : 1945 Sex: FFINAL REPORT Chest, 1 view, 02/28/2023 7:32 AM. History: Postop. Comparison: 02/27/2023. Discussion: The cardiac silhouette is stable. Bilateral interstitial pleuroparenchymal opacities are unchanged. Left-sided pigtail catheter is unchanged in position. There is no pneumothorax. The soft tissues and osseous structures are intact. IMPRESSION: No significant change. Signed: Dominic Lerner Verified Date/Time: 02/28/2023 13:43:32 Reading Location: [facility] Tissue [id number] 13:15:02 Test Item Value Reference Range Interpretation Comments Case Report (test code Surgical Pathology = 104) Report Case: [id number] Authorizing Provider: Irais Person Jr., Collected: 02/17/2023 09:53 AM Ordering Location: [facility] Received: 02/17/2023 12:07 PM PERIOPERATIVE SERVICES Pathologist: Cristian Peguero MD Specimen: Hernia, HERNIA SAC DIAGNOSIS (test code = [id number] 3220) FuZzEwMzNcZnRuYmpcdWMx IHtccnRmMVxlcGljMTAyMD VfKP4jsSvkoZc6yYkbLGEm gyQ7oZVdSJkuq1ecORF3i1 twembxPTGuLOgqAh8txWYx uRgbLhGnYWBtSKt7oK75WU XscL1ukHDtDGu0XUAgjCYw klNrMqXoSIVpmIJhrMW6WW MlHU7axtsrQJbnUQysOTGn hoW5WCDubONzU6XnEAXkQM 9ehwvtQPE7OGldWMKcDWV3 TiYsFSDsu6Fhgrt8VzKihT FyZFxwbGFpblxmczIwIFNP IpOnLGqRQ0LFSKHVCLQUEF PUBRuVE2TGDJsxNYAZQysT UkBFGTMRMFwmlGSvGV9lCK PLMeRYQ8NPTvFwM5qPABKE CBCGFIYxR9TPFPvhLHM5v1 xydGYxXHNzdGUxODAwMFxh bnNpXGRlZmxhbmcxMDMzXG V1nlQqHRSnPZrnBMEgZMon Pm9kbXOcpZoyIzUwPVWhu8 aqkrNWyxpetAx4a7buRZGl XyW9cPDkVKydE3uhyzMrtU XdVQXdCSt1aD70LCHluR7n hRImBGsxgjHmAsM2EBqlBG NhVqA4LWLrnCThHSPxP7hn ZWQwXGdyZWVuMFxibHVlMC X5eZiiq8J7yYRevTFvlSpm KdLmPmKaVtPLx1LfSEy5wA tfO2BpITJzKtT1yWPfGKOr QVvgUXTkXZOyxsG6jB35MW qtbzZ5sVOrb8Ifk85vz223 sX5kaLFcJLR2ERLzBEPksN GhBWAlGDH5SKWngALmS1vt VZEnIE8pnvcpXFuwBAdpJE SqyOY7NXXofZMzO1JtUOWp CXmdNLZrnqz0XrHuDr8wfP TqqQqpBEtvs1fop9gytPRm Hxl6VFOfYiIqKowzRVovk7 Bki6vvZDAbwo7qEOQ5lWTy uWiys9W1tONsUHYxlQZeOB GfGT0elBGxHFBxuN1xjait XHBnYnJkcmhlYWRccGdicm WvUb6luGslQMG2MCbwG3wq tL8mIgC0KRyvH6iurX2nLD h5XNibJWPplKE9lsA0PZWz zVRqM0AjvS3mYHNvOW7yih b3z2jvHMN7PKhwMLCpMqQ7 zqH0OCOivRXbJTDgxTueFK xbq834JHJ5NxBrDOGtb6Bi L3GfoNysS82uwHpoN13aLD KdsOnuqS4ajImnqZ5rMzPn PwLmRTufrGbjWO0cEVOwN0 ozsUEuSSEkBLLaN6seDqDx pR5akXjvKNauwfTpFIDgNz j2QUWcxJKfFURwIum7OKDm MJVkW12dtqmdGVM4pF3ze8 hbe2RsCTaqWIE2XKXqc85b TDvrktI0SDieNd86VUoiJX D3VRdtKDN3uG== CPT Code(s) (test code x0pfiMYvGRFvrWVoMVHrFN = 3357) ttwcJuNKPdiLAwV3Bzqsht LTmaOS1hTE9spSuagSVphZ LjLHMmWoHnz1dro719tMEh c0ybQNLDdogtqAb4tIhsJ7 1re1C6UugmA57rtHQtWUI6 AWIfIWHnzJUrFQXdBAT4RE DkmVCsI9teTDKyAE1raxbl HWbfCQdyWZLdlMK1ZLUhgV YdL4ElYFVeMLjuPPXopxp1 IrUvCs1yiTFuyMlzOJtjMP JkXHBsYWluXGZzMjAgODgz MDJccGFyfQ== CLINICAL HISTORY (test z4sboOWwOQDdgOBtXFFdRH code = 3356) nhdlWfATRwhFFtC0Bktkyx IGqzWE3yIZ5saIkulFVrbJ IuQEKfBcKsy5aia178dSRt w0jlAULGOFdsCNMOKUf7x9 wrILEVksnvcIt1aKqiZ27a o2L3IzlyT66uzTJlGIB5HB VjGSJfzVVtEQNpCOR8VJEd xVRdC8yoFOPpWN2agdvoOE muHGqkAEDoaDC2QQBxvUVq X6DvWQPlEErvGRBpioi5Cu ZaBx3xiFBwmVaySKiwONDu XHBsYWluXGYxXGZzMjAgUG TfPJTdb5XuQMjdUWdfpXQc cxkuLHTlFOS2yr6xg18oyS RpPNFwPXLqOiv8gJIjfTFu TGZySRK0hbArHAMxPztuDK R8pUN0aYIgXOUzf4NnAYjq dGlzIHByZXNlbnRccGFyfQ == SPECIMEN SOURCE (test h5uvsORhKSHpjHIiZAXzLJ code = 3377) mqobQpTTEowAXqA8Yhikaa DQrbXS2xYH8vuQytdHMlqS KdJPNkRyZow2kcc246lEPa i2xaVBLFkkeqiBt7uQxkI1 7ar5L0BqhuY14wuDPrVAS8 SQWgXLReyRFdILSrSNA4IL GulOUrS7hlQEHrOR1pxrse CNutJMfnMGSqzEO0WCNbjG SyN1QqJEDkCTawRDWscjk8 HnRrEl4fhQBgsXvpZMuxGI JkXHBsYWluXGZzMjAgUGFy EWGcy8FhBWmvAEcmuGLebI == GROSS DESCRIPTION (test q0dvqAFnXFIbzUJPXIKrJY code = [id number]) GhCJ1viMgfnQz1nDxlFWEi ylR4gQVxRGqsl2vuMJA2i3 qflgQZMgbwLVLaPE1kAJih LAOuBP7kToZoUMEqVsNvHJ BhcGVydzEyMjQwXHBhcGVy hOF3JWWeHB4ssnxuYSahZD wlWQRnonH7PHIroYDoN9Jb FEDkNK9neqmkFYO0FDKRUd pgZz7mqQZclVhcMfQhWmSr YXJzZXQwXGZuaWwgQXJpYW u3lN8YUjvlDLW0EVWXGtzu CdixfSico5HndBZdDKMuPQ xcaWQgNTEwMDAgXFxkYiBP DfLbLlZ9RAA9IAKzGyC6VY q1ASSBGQKgBPY4UAQ8XnW6 AVb8UZCfNB3pVCapnDUoQF joJsnwPNybA331AFllJZIn C4LiJ2ErIYmeQvCsMSjlSM YaPCDxBHxeOZGlR3TEBQHx XCe0JIhgFxXkWSl9VFagI0 BBKDQlSBL4QbKtByg3RbY7 VQs0EQVRCn4iNdDiHCk6EI bxRHS5NML5HBhtyPRoFYlt o6HiDcXbGDFdDTniriL8DO RnurNvPAqipCiuvR8gYkHg MiBBLiBIZXJuaWFccGFyIA 7QEHMvptHzPYsoyMvxlL4d ZnMyMlxsdHJjaFxlcGljTm VzdERvYzEgDQpcbHRycGFy XGxpbjBccmluMCANClxmcz IwIFNwZWNpbWVuIGlzIHJl Q5DpndKxJQDlLAFrKOKwQW JlbGVkIHdpdGggdGhlIHBh oSlatxZugfGvSZ1qETUEBi 4gbnVtYmVyIGFuZCAiaGVy bmlhIHNhYyIgaXMgYSBhZ2 etRHaasSSdl9KgxjDaPNC6 xnZzRLAjx59uSOE2MLCiNx ytjm9fPWzgb0VcYSLew2H1 ZSBtZWFzdXJpbmcgMTIuMC H9PLRgIrVtkTX0PyKbG34q AUYNPOQqBGKwgrDbbXn7SQ HeFHE6yP3zjrTsfxDbd2Nl qMf7pWYmEVzcEYFwNrpsDO KfVThvhNZgXG1ITELsAdRk MYJoV2xiONKqAB6YCbSzOK BVZGRpbiwgTUhTDQpcZXBp I38ol9FGq2Jxs4iofBznf9 RmeCAjGF67TAKldGZxXHB6 KH0fqRcoEPVqLMtqlECoZX DLRonxgmSqYO8ZzU== MICROSCOPIC DESCRIPTION e8tscSHfOLBxyMJnHLTcJY (test code = 3371) wqxsHpFHJjiOQwD6Qhktpj UEgaSF7jIK5hoKgtmHHspT BcXJKiCuJpn2ljr506fAQv c9rmCULTjngalWa7pCpvH3 2zm3R5FanlI11uaACpPSR1 SHUbBIBocGWqVPWvHPI2BQ GgoBGvR0hvGXKxBC0njntt JPsbNRvrCSSgxYZ4RMDqfG BhS9UuTEHyDNboGXYcygr1 UkJuFe2bzSCkgJulVAweDM JkXHBsYWluXGZzMjAgUGVy Sx4xhQRgJDFqgf6= Gross assessment was [facility] performed at (Formerly [facility], = 2777) Department of Pathology, [address] [place] [address], Technical component was [facility] performed at (Formerly [facility], = 2778) Department of Pathology, [address] [place] [address], Professional component [facility] was performed at ([facility], code = 2779) Department of Pathology, [address] [place] [address], [facility] CenterT[facility] [id number] 13:15:02Surgical Pathology Report Case: [id number] Authorizing Provider: Irais Person Jr., Collected: 02/17/2023 09:53 AM Ordering Location: [facility] Received: 02/17/2023 12:07 PM PERIOPERATIVE SERVICES Pathologist: Cristian Peguero MD Specimen: Hernia, HERNIA SAC SOFT TISSUE, PARAESOPHAGEAL, HERNIORRHAPHY:- CONSISTENT WITH HERNIA SAC Signing Pathologist Direct Phone Line: [phone] signed by Cristian Peguero MD on 02/28/2023 at 1:14 [id number] hernia, gastroesophageal reflux disease, unspecified whether esophagitis presentParaesophagealA. HerniaSpecimen is received fresh, labeled with the patient's name, MRN number and "hernia sac" is a aggregate of red-purple congested fibroadipose tissue measuring 12.0 x 10.0 x 5.0 cm. Pc Tech sections are submitted inA1.Rubi Rojo MHSPerformedylValleyCare Medical Center, Department of Pathology, [address] [place] [address], [facility], Department of Pathology, [address] [place] [address], [facility]dsptKentfield [facility] [place], Department of Pathology, [address] [place] [address], PCKSJ METABOLIC [id number] 06:03:22 Test Item Value Reference Range Interpretation Comments SODIUM (BEAKER) 133 meq/L 136-145 L (test code = 381) POTASSIUM 3.6 meq/L 3.5-5.1 (BEAKER) (test code = 379) CHLORIDE (BEAKER) 96 meq/L 98-107 L (test code = 382) CO2 (BEAKER) 25 meq/L 22-29 (test code = 355) BLOOD UREA 9 mg/dL 7-21 NITROGEN (BEAKER) (test code = 354) CREATININE 0.64 mg/dL 0.57-1.25 (BEAKER) (test code = 358) GLUCOSE RANDOM 107 mg/dL 70-105 H (BEAKER) (test code = 652) CALCIUM (BEAKER) 8.8 mg/dL 8.4-10.2 (test code = 697) EGFR (BEAKER) 91 Interpretatio n of eGFR (test code = mL/min/1.73 values Stage De scription 1092) sq m Result G1 Tiff l or high >=90 G2 Mildly decreased 60-89 G3a Mildl y to moderately 45-5 9 G3b Moderately to s everely 30-44 G4 Severl y decreased 15-29 G5 Kidney failure <15Reported eGF R is based on the CKD-EPI 2021 equation that d oes not use a race coefficientEsti mated GFR is not as accur ate as Creatinine Narda garcia in predicting glom erular filtration rate . Estimated GFR is not appl icable for dialysis patien ts Gaming Department Head ID - MMCBC W/PLT COUNT & AUTO [id number] 05:47:41 Test Item Value Reference Range Interpretation Comments WHITE BLOOD CELL COUNT (BEAKER) 6.5 K/ L 3.5-10.5 (test code = 775) RED BLOOD CELL COUNT (BEAKER) 3.40 M/ L 3.93-5.22 L (test code = 761) HEMOGLOBIN (BEAKER) (test code = 10.5 GM/DL 11.2-15.7 L 410) HEMATOCRIT (BEAKER) (test code = 32.9 % 34.1-44.9 L 411) MEAN CORPUSCULAR VOLUME (BEAKER) 97 fL 79-95 H (test code = 753) MEAN CORPUSCULAR HEMOGLOBIN 30.9 pg 25.6-32.2 (BEAKER) (test code = 751) MEAN CORPUSCULAR HEMOGLOBIN CONC 31.9 GM/DL 32.2-35.5 L (BEAKER) (test code = 752) RED CELL DISTRIBUTION WIDTH 13.9 % 11.7-14.4 (BEAKER) (test code = 412) PLATELET COUNT (BEAKER) (test 472 K/CU MM 150-450 H code = 756) MEAN PLATELET VOLUME (BEAKER) 9.7 fL 9.4-12.3 (test code = 754) NUCLEATED RED BLOOD CELLS 0 /100 WBC 0-0 (BEAKER) (test code = 413) NEUTROPHILS RELATIVE PERCENT 81 % (BEAKER) (test code = 429) LYMPHOCYTES RELATIVE PERCENT 7 % (BEAKER) (test code = 430) MONOCYTES RELATIVE PERCENT 10 % (BEAKER) (test code = 431) EOSINOPHILS RELATIVE PERCENT 1 % (BEAKER) (test code = 432) BASOPHILS RELATIVE PERCENT 0 % (BEAKER) (test code = 437) NEUTROPHILS ABSOLUTE COUNT 5.23 K/ L 1.56-6.13 (BEAKER) (test code = 670) LYMPHOCYTES ABSOLUTE COUNT 0.48 K/ L 1.18-3.74 L (BEAKER) (test code = 414) MONOCYTES ABSOLUTE COUNT (BEAKER) 0.62 K/ L 0.24-0.36 H (test code = 415) EOSINOPHILS ABSOLUTE COUNT 0.04 K/ L 0.04-0.36 (BEAKER) (test code = 416) BASOPHILS ABSOLUTE COUNT (BEAKER) 0.02 K/ L 0.01-0.08 (test code = 417) IMMATURE GRANULOCYTES-RELATIVE 1.20 % 0.00-1.00 H PERCENT (BEAKER) (test code = 2801) BLOOD GAS, [id number] 16:01:45 Test Item Value Reference Range Interpretation Comments PH VENOUS (BEAKER) (test code = 7.44 7.32-7.42 H 701) PCO2 VENOUS (BEAKER) (test code = 37 mm Hg 41-51 L 755) PO2 VENOUS (BEAKER) (test code = 57 mm Hg 25-40 H 702) O2 SATURATION VENOUS (BEAKER) 91.2 % 40.0-70.0 H (test code = 703) HCO3 VENOUS (BEAKER) (test code = 24 mmol/L 21-29 705) BASE EXCESS VENOUS (BEAKER) (test 0.4 mmol/L -2.0-3.0 code = 704) PATIENT TEMPERATURE (BEAKER) (test 36.8 code = 1818) FIO2 (BEAKER) (test code = 1819) 28.0 RAD, CHEST, 1 VIEW, NON [id number] 08:49:00Reason for exam:->post opShould this be performed at the bedside?->Yes [facility] : 1945 Sex: FFINAL REPORT EXAM/TECHNIQUE: Single view frontal radiograph of the chest. INDICATION: Postoperative. COMPARISON: 02/26/2023 FINDINGS: Devices/Objects: Stable. Lungs: Increased pleural effusions and pulmonary opacities. Trace right apical pneumothorax. Heart/Mediastinum: No cardiomegaly. No interstitial thickening. Osseous: No acute osseous process. No suspicious osseous lesion. Upper abdomen: Unremarkable. Impression: Increased pulmonary edema with likely unchanged trace right apical pneumothorax. Signed: Guillermo Moses [facility] Centerort Verified Date/Time: 02/27/2023 08:49:23 BASIC METABOLIC [id number] 08:01:18 Test Item Value Reference Range Interpretation Comments SODIUM (BEAKER) 131 meq/L 136-145 L (test code = 381) POTASSIUM 3.9 meq/L 3.5-5.1 (BEAKER) (test code = 379) CHLORIDE (BEAKER) 94 meq/L 98-107 L (test code = 382) CO2 (BEAKER) 21 meq/L 22-29 L (test code = 355) BLOOD UREA 10 mg/dL 7-21 NITROGEN (BEAKER) (test code = 354) CREATININE 0.62 mg/dL 0.57-1.25 (BEAKER) (test code = 358) GLUCOSE RANDOM 107 mg/dL 70-105 H (BEAKER) (test code = 652) CALCIUM (BEAKER) 9.5 mg/dL 8.4-10.2 (test code = 697) EGFR (BEAKER) 92 Interpretatio n of eGFR (test code = mL/min/1.73 values Stage De scription 1092) sq m Result G1 Tiff l or high >=90 G2 Mildly decreased 60-89 G3a Mildl y to moderately 45-5 9 G3b Moderately to s everely 30-44 G4 Severl y decreased 15-29 G5 Kidney failure <15Reported eGF R is based on the CKD-EPI 2020 equation that d oes not use a race coefficientEsti mated GFR is not as accur ate as Creatinine Narda garcia in predicting glom erular filtration rate . Estimated GFR is not appl icable for dialysis patien ts Gaming Department Head ID - MMCBC W/PLT COUNT & AUTO [id number] 06:09:19 Test Item Value Reference Range Interpretation Comments WHITE BLOOD CELL COUNT (BEAKER) 8.0 K/ L 3.5-10.5 (test code = 775) RED BLOOD CELL COUNT (BEAKER) 3.67 M/ L 3.93-5.22 L (test code = 761) HEMOGLOBIN (BEAKER) (test code = 11.5 GM/DL 11.2-15.7 410) HEMATOCRIT (BEAKER) (test code = 35.8 % 34.1-44.9 411) MEAN CORPUSCULAR VOLUME (BEAKER) 98 fL 79-95 H (test code = 753) MEAN CORPUSCULAR HEMOGLOBIN 31.3 pg 25.6-32.2 (BEAKER) (test code = 751) MEAN CORPUSCULAR HEMOGLOBIN CONC 32.1 GM/DL 32.2-35.5 L (BEAKER) (test code = 752) RED CELL DISTRIBUTION WIDTH 14.0 % 11.7-14.4 (BEAKER) (test code = 412) PLATELET COUNT (BEAKER) (test 428 K/CU MM 150-450 code = 756) MEAN PLATELET VOLUME (BEAKER) 9.9 fL 9.4-12.3 (test code = 754) NUCLEATED RED BLOOD CELLS 0 /100 WBC 0-0 (BEAKER) (test code = 413) NEUTROPHILS RELATIVE PERCENT 84 % (BEAKER) (test code = 429) LYMPHOCYTES RELATIVE PERCENT 8 % (BEAKER) (test code = 430) MONOCYTES RELATIVE PERCENT 7 % (BEAKER) (test code = 431) EOSINOPHILS RELATIVE PERCENT 0 % (BEAKER) (test code = 432) BASOPHILS RELATIVE PERCENT 0 % (BEAKER) (test code = 437) NEUTROPHILS ABSOLUTE COUNT 6.77 K/ L 1.56-6.13 H (BEAKER) (test code = 670) LYMPHOCYTES ABSOLUTE COUNT 0.61 K/ L 1.18-3.74 L (BEAKER) (test code = 414) MONOCYTES ABSOLUTE COUNT (BEAKER) 0.55 K/ L 0.24-0.36 H (test code = 415) EOSINOPHILS ABSOLUTE COUNT 0.01 K/ L 0.04-0.36 L (BEAKER) (test code = 416) BASOPHILS ABSOLUTE COUNT (BEAKER) 0.02 K/ L 0.01-0.08 (test code = 417) IMMATURE GRANULOCYTES-RELATIVE 0.90 % 0.00-1.00 PERCENT (BEAKER) (test code = 2801) (CELLAVISION MANUAL DIFF)2023-02-26 09:54:27 Test Item Value Reference Range Interpretation Comments NEUTROPHILS - REL 74 % (CELLAVISION)(BEAKER) (test code = 2816) LYMPHOCYTES - REL 9 % (CELLAVISION)(BEAKER) (test code = 2817) MONOCYTES - REL 7 % (CELLAVISION)(BEAKER) (test code = 2818) BANDS - REL (CELLAVISION)(BEAKER) 9 % 0-10 (test code = 2826) ATYPICAL LYMPHOCYTES - REL 1 % 0-0 H (CELLAVISION)(BEAKER) (test code = 2829) NEUTROPHILS - ABS 5.33 K/ul 1.56-6.13 (CELLAVISION)(BEAKER) (test code = 2830) LYMPHOCYTES - ABS 0.65 K/ul 1.18-3.74 L (CELLAVISION)(BEAKER) (test code = 2831) MONOCYTES - ABS 0.50 K/uL 0.24-0.36 H (CELLAVISION)(BEAKER) (test code = 2832) BANDS - ABS (CELLAVISION)(BEAKER) 0.65 K/uL 0.00-0.80 (test code = 2840) ATYPICAL LYMPHOCYTES - ABS 0.07 K/uL 0.00-0.00 H (CELLAVISION)(BEAKER) (test code = 2858) TOTAL COUNTED (BEAKER) (test code 100 = 1351) MANUAL NRBC PER 100 CELLS (BEAKER) 1 /100 WBC 0-0 H (test code = 1353) WBC MORPHOLOGY (BEAKER) (test code Normal = 487) PLT MORPHOLOGY (BEAKER) (test code Normal = 486) ANISOCYTOSIS (BEAKER) (test code = 1+ few 961) MACROCYTES (BEAKER) (test code = 1+ few 964) ARTIFACT (CELLAVISION)(BEAKER) Present (test code = 3432) PLATELET CONCENTRATION Adequate (CELLAVISION)(BEAKER) (test code = 3438) Gaming Department Head ID - Mera OverholtUser comments: Slide comments:CBC W/PLT COUNT & AUTO [id number] 09:54:26 Test Item Value Reference Range Interpretation Comments WHITE BLOOD CELL COUNT (BEAKER) 7.2 K/ L 3.5-10.5 (test code = 775) RED BLOOD CELL COUNT (BEAKER) 3.83 M/ L 3.93-5.22 L (test code = 761) HEMOGLOBIN (BEAKER) (test code = 11.8 GM/DL 11.2-15.7 410) HEMATOCRIT (BEAKER) (test code = 37.0 % 34.1-44.9 411) MEAN CORPUSCULAR VOLUME (BEAKER) 97 fL 79-95 H (test code = 753) MEAN CORPUSCULAR HEMOGLOBIN 30.8 pg 25.6-32.2 (BEAKER) (test code = 751) MEAN CORPUSCULAR HEMOGLOBIN CONC 31.9 GM/DL 32.2-35.5 L (BEAKER) (test code = 752) RED CELL DISTRIBUTION WIDTH 14.2 % 11.7-14.4 (BEAKER) (test code = 412) PLATELET COUNT (BEAKER) (test 377 K/CU MM 150-450 code = 756) MEAN PLATELET VOLUME (BEAKER) 10.0 fL 9.4-12.3 (test code = 754) NUCLEATED RED BLOOD CELLS 0 /100 WBC 0-0 (BEAKER) (test code = 413) RAD, CHEST, 1 VIEW, NON [id number] 08:37:00Reason for exam:->post opShould this be performed at the bedside?->Yes [facility] : 1945 Sex: FFINAL REPORT Exam: RAD, CHEST, 1 VIEW, NON DEPTDate: 02/26/2023 8:37 AM Indication:post opComparison: Chest radiograph from yesterday. IMPRESSION: Lines/Tubes:Unchanged left chest tube. Lungs and Pleura :No significant change in the bilateral airspace opacities. Small to moderate left and questionable trace right pleural effusion. No pneumothorax. Heart/Mediastinum:Partially obscured but unchanged. Bones/Soft Tissues: No acute osseous abnormality. Upper abdomen: Unremarkable. Signed: Fred June MDReport Verified Date/Time: 02/26/2023 08:37:27 BASIC METABOLIC [id number] 06:06:17 Test Item Value Reference Range Interpretation Comments SODIUM (BEAKER) 135 meq/L 136-145 L (test code = 381) POTASSIUM 4.0 meq/L 3.5-5.1 (BEAKER) (test code = 379) CHLORIDE (BEAKER) 96 meq/L 98-107 L (test code = 382) CO2 (BEAKER) 25 meq/L 22-29 (test code = 355) BLOOD UREA 7 mg/dL 7-21 NITROGEN (BEAKER) (test code = 354) CREATININE 0.59 mg/dL 0.57-1.25 (BEAKER) (test code = 358) GLUCOSE RANDOM 92 mg/dL 70-105 (BEAKER) (test code = 652) CALCIUM (BEAKER) 9.5 mg/dL 8.4-10.2 (test code = 697) EGFR (BEAKER) 93 Interpretatio n of eGFR (test code = mL/min/1.73 values Stage De scription 1092) sq m Result G1 Tiff l or high >=90 G2 Mildly decreased 60-89 G3a Mildl y to moderately 45-5 9 G3b Moderately to s everely 30-44 G4 Severl y decreased 15-29 G5 Kidney failure <15Reported eGF R is based on the CKD-EPI 2020 equation that d oes not use a race coefficientEsti mated GFR is not as accur ate as Creatinine Narda radha in predicting glom erular filtration rate . Estimated GFR is not appl icable for dialysis patien ts Gaming Department Head ID - MARCOBASIC METABOLIC [id number] 19:43:59 Test Item Value Reference Range Interpretation Comments SODIUM (BEAKER) 133 meq/L 136-145 L (test code = 381) POTASSIUM 3.7 meq/L 3.5-5.1 (BEAKER) (test code = 379) CHLORIDE (BEAKER) 95 meq/L 98-107 L (test code = 382) CO2 (BEAKER) 25 meq/L 22-29 (test code = 355) BLOOD UREA 5 mg/dL 7-21 L NITROGEN (BEAKER) (test code = 354) CREATININE 0.62 mg/dL 0.57-1.25 (LJAKER) (test code = 358) GLUCOSE RANDOM 87 mg/dL 70-105 (ARELIS) (test code = 652) CALCIUM (ARELIS) 8.8 mg/dL 8.4-10.2 (test code = 697) EGFR (ARELIS) 92 Interpretati on of eGFR (test code = mL/min/1.73 values Stage De scription 1092) sq m Result G1 Tiff l or high >=90 G2 Mildly decreased 60-89 G3a Mildl y to moderately 45-5 9 G3b Moderately to s everely 30-44 G4 Severl y decreased 15-29 G5 Kidney failure <15Reported eGF R is based on the CKD-EPI 2020 equation that d oes not use a race coefficientEsti mated GFR is not as accur ate as Creatinine Narda radha in predicting glom erular filtration rate . Estimated GFR is not appl icable for dialysis patien ts Gaming Department Head ID - ADMINRAD, CHEST, 1 VIEW, NON [id number] 09:22:00Reason for exam:->post opShould this be performed at the bedside?->Yes [facility] REC[facility] : 1945 Sex: FFINAL REPORT Chest one view. Clinical history: post op Comparison: 02/24/2023 Discussion: A frontal chest is provided. Cardiomediastinal contours are unchanged. Lines and tubes are in stable position. Stable appearance of pulmonary interstitial edema, and bibasilar pleural-parenchymal opacities. No pneumothorax. Signed: Keke Tapiaeport Verified Date/Time: 02/25/2023 09:22:01 Reading Location: [facility] B1 C013X Ortho Consult Reading Room [id number] 07:35:09 Test Item Value Reference Range Interpretation Comments PHOSPHORUS (BEAKER) (test code = 2.2 mg/dL 2.3-4.7 L 604) Gaming Department Head ID - [id number] 07:35:08 Test Item Value Reference Range Interpretation Comments MAGNESIUM (BEAKER) (test code = 2.0 mg/dL 1.6-2.6 627) Gaming Department Head ID - MARCOBASIC METABOLIC [id number] 03:48:00 Test Item Value Reference Range Interpretation Comments SODIUM (BEAKER) 135 meq/L 136-145 L (test code = 381) POTASSIUM 3.8 meq/L 3.5-5.1 (BEAKER) (test code = 379) CHLORIDE (BEAKER) 101 meq/L 98-107 (test code = 382) CO2 (BEAKER) 24 meq/L 22-29 (test code = 355) BLOOD UREA 4 mg/dL 7-21 L NITROGEN (BEAKER) (test code = 354) CREATININE 0.57 mg/dL 0.57-1.25 (BEAKER) (test code = 358) GLUCOSE RANDOM 105 mg/dL 70-105 (BEAKER) (test code = 652) CALCIUM (BEAKER) 8.3 mg/dL 8.4-10.2 L (test code = 697) EGFR (BEAKER) 94 Interpretatio n of eGFR (test code = mL/min/1.73 values Stage De scription 1092) sq m Result G1 Tiff l or high >=90 G2 Mildly decreased 60-89 G3a Mildl y to moderately 45-5 9 G3b Moderately to s everely 30-44 G4 Severl y decreased 15-29 G5 Kidney failure <15Reported eGF R is based on the CKD-EPI 1 equation that d oes not use a race coefficientEsti mated GFR is not as accur ate as Creatinine Narda radha in predicting glom erular filtration rate . Estimated GFR is not appl icable for dialysis patien ts Gaming Department Head ID - MMCBC W/PLT COUNT & AUTO [id number] 03:16:52 Test Item Value Reference Range Interpretation Comments WHITE BLOOD CELL COUNT (BEAKER) 4.3 K/ L 3.5-10.5 (test code = 775) RED BLOOD CELL COUNT (BEAKER) 3.42 M/ L 3.93-5.22 L (test code = 761) HEMOGLOBIN (BEAKER) (test code = 10.8 GM/DL 11.2-15.7 L 410) HEMATOCRIT (BEAKER) (test code = 33.8 % 34.1-44.9 L 411) MEAN CORPUSCULAR VOLUME (BEAKER) 99 fL 79-95 H (test code = 753) MEAN CORPUSCULAR HEMOGLOBIN 31.6 pg 25.6-32.2 (BEAKER) (test code = 751) MEAN CORPUSCULAR HEMOGLOBIN CONC 32.0 GM/DL 32.2-35.5 L (BEAKER) (test code = 752) RED CELL DISTRIBUTION WIDTH 14.0 % 11.7-14.4 (BEAKER) (test code = 412) PLATELET COUNT (BEAKER) (test 287 K/CU MM 150-450 code = 756) MEAN PLATELET VOLUME (BEAKER) 9.8 fL 9.4-12.3 (test code = 754) NUCLEATED RED BLOOD CELLS 0 /100 WBC 0-0 (BEAKER) (test code = 413) NEUTROPHILS RELATIVE PERCENT 70 % (BEAKER) (test code = 429) LYMPHOCYTES RELATIVE PERCENT 17 % (BEAKER) (test code = 430) MONOCYTES RELATIVE PERCENT 11 % (BEAKER) (test code = 431) EOSINOPHILS RELATIVE PERCENT 1 % (BEAKER) (test code = 432) BASOPHILS RELATIVE PERCENT 0 % (BEAKER) (test code = 437) NEUTROPHILS ABSOLUTE COUNT 3.03 K/ L 1.56-6.13 (BEAKER) (test code = 670) LYMPHOCYTES ABSOLUTE COUNT 0.73 K/ L 1.18-3.74 L (BEAKER) (test code = 414) MONOCYTES ABSOLUTE COUNT (BEAKER) 0.46 K/ L 0.24-0.36 H (test code = 415) EOSINOPHILS ABSOLUTE COUNT 0.05 K/ L 0.04-0.36 (BEAKER) (test code = 416) BASOPHILS ABSOLUTE COUNT (BEAKER) 0.01 K/ L 0.01-0.08 (test code = 417) IMMATURE GRANULOCYTES-RELATIVE 1.40 % 0.00-1.00 H PERCENT (ARELIS) (test code = 2801) POC-Glucose [id number] 12:15:38 Test Item Value Reference Range Interpretation Comments POC-Glucose Meter (test 99 mg/dL 70-110 : TE STED AT [facility] code = 1538) [address] [place], [address]: Gaming Department Head/Techni cris ID = [id number] for KAROL MCCABE Lab Interpretation (test Normal code = 55947-1) [facility] [id number] 12:15:38 Test Item Value Reference Range Interpretation Comments POC-GLUCOSE METER 99 mg/dL 70-110 : TESTED A T [facility] [address] (ARELIS) (test code = AMIE Neumann [facility], 1538) [address]: Gaming Department Head/Techni cris ID = [id number] for KAROL JOHNSON RAD, CHEST, 1 VIEW, NON [id number] 10:37:00Reason for exam:->post opShould this be performed at the bedside?->Yes [facility] : 1945 Sex: FFINAL REPORT CLINICAL HISTORY: post op TECHNIQUE: 1 view of the chest. COMPARISON: 02/23/2023 IMPRESSION: A medial left chest pigtail catheter is again seen. Diffuse bilateral pleural-parenchymal opacities are grossly unchanged. The cardiomediastinal silhouette is magnified by technique. No pneumothorax. Signed: Beth Cash MDReport Verified Date/Time: 02/24/2023 10:37:36 BASIC METABOLIC PANEL 2023-02-24 04:24:35 Test Item Value Reference Range Interpretation Comments SODIUM (BEAKER) 134 meq/L 136-145 L (test code = 381) POTASSIUM 3.6 meq/L 3.5-5.1 (BEAKER) (test code = 379) CHLORIDE (BEAKER) 104 meq/L 98-107 (test code = 382) CO2 (BEAKER) 21 meq/L 22-29 L (test code = 355) BLOOD UREA 7 mg/dL 7-21 NITROGEN (BEAKER) (test code = 354) CREATININE 0.55 mg/dL 0.57-1.25 L (BEAKER) (test code = 358) GLUCOSE RANDOM 96 mg/dL 70-105 (BEAKER) (test code = 652) CALCIUM (BEAKER) 7.8 mg/dL 8.4-10.2 L (test code = 697) EGFR (BEAKER) 94 Interpretatio n of eGFR (test code = mL/min/1.73 values Stage De scription 1092) sq m Result G1 Tiff l or high >=90 G2 Mildly decreased 60-89 G3a Mild ly to moderately 45-5 9 G3b Moderately to s everely 30-44 G4 Severl y decreased 15-29 G5 Kidney failure <15Reported eGF R is based on the CKD-EPI 2020 equation that d oes not use a race coefficientEsti mated GFR is not as accur ate as Creatinine Narda radha in predicting glom erular filtration rate . Estimated GFR is not appl icable for dialysis patien ts Gaming Department Head ID - ADMINCBC W/PLT COUNT & AUTO [id number] 04:02:32 Test Item Value Reference Range Interpretation Comments WHITE BLOOD CELL COUNT (BEAKER) 5.3 K/ L 3.5-10.5 (test code = 775) RED BLOOD CELL COUNT (BEAKER) 3.35 M/ L 3.93-5.22 L (test code = 761) HEMOGLOBIN (BEAKER) (test code = 10.6 GM/DL 11.2-15.7 L 410) HEMATOCRIT (BEAKER) (test code = 33.3 % 34.1-44.9 L 411) MEAN CORPUSCULAR VOLUME (BEAKER) 99 fL 79-95 H (test code = 753) MEAN CORPUSCULAR HEMOGLOBIN 31.6 pg 25.6-32.2 (BEAKER) (test code = 751) MEAN CORPUSCULAR HEMOGLOBIN CONC 31.8 GM/DL 32.2-35.5 L (BEAKER) (test code = 752) RED CELL DISTRIBUTION WIDTH 14.2 % 11.7-14.4 (BEAKER) (test code = 412) PLATELET COUNT (BEAKER) (test 255 K/CU MM 150-450 code = 756) MEAN PLATELET VOLUME (BEAKER) 9.8 fL 9.4-12.3 (test code = 754) NUCLEATED RED BLOOD CELLS 0 /100 WBC 0-0 (BEAKER) (test code = 413) NEUTROPHILS RELATIVE PERCENT 71 % (BEAKER) (test code = 429) LYMPHOCYTES RELATIVE PERCENT 18 % (BEAKER) (test code = 430) MONOCYTES RELATIVE PERCENT 9 % (BEAKER) (test code = 431) EOSINOPHILS RELATIVE PERCENT 2 % (BEAKER) (test code = 432) BASOPHILS RELATIVE PERCENT 0 % (BEAKER) (test code = 437) NEUTROPHILS ABSOLUTE COUNT 3.75 K/ L 1.56-6.13 (BEAKER) (test code = 670) LYMPHOCYTES ABSOLUTE COUNT 0.93 K/ L 1.18-3.74 L (BEAKER) (test code = 414) MONOCYTES ABSOLUTE COUNT (BEAKER) 0.46 K/ L 0.24-0.36 H (test code = 415) EOSINOPHILS ABSOLUTE COUNT 0.09 K/ L 0.04-0.36 (BEAKER) (test code = 416) BASOPHILS ABSOLUTE COUNT (BEAKER) 0.02 K/ L 0.01-0.08 (test code = 417) IMMATURE GRANULOCYTES-RELATIVE 1.30 % 0.00-1.00 H PERCENT (BEAKER) (test code = 2801) POCT-GLUCOSE [id number] 23:13:40 Test Item Value Reference Range Interpretation Comments POC-GLUCOSE METER 88 mg/dL 70-110 : TESTED Josette Dawn [facility] 67[address] (BEAKER) (test code = AMIE [place], 1538) [id number]: Gaming Department Head/Techni cris ID = [id number] for MANNY LES, CAITLYN RAD, CHEST, 1 VIEW, NON [id number] 14:31:00Reason for exam:->ChT placementShould this be performed at the bedside?->Yes [facility] 1945 Sex: FFINAL REPORT CLINICAL HISTORY: ChT placement TECHNIQUE: 1 view of the chest. COMPARISON: 02/23/2023 IMPRESSION: There is a new medial left chest pigtail catheter. There is no pneumothorax. Diffuse bilateral pleural- parenchymal opacities appear increased. Signed: Beth Cash MDReport Verified Date/Time: 02/23/2023 14:31:24 POCT-GLUCOSE [id number] 12:13:20 Test Item Value Reference Range Interpretation Comments POC-GLUCOSE METER 102 mg/dL 70-110 : TESTED A T [facility] (test code = AMIE GOMEZ [place], 1538) 12944: Gaming Department Head/Techni cris ID = [id number] for EMMANUEL CROWELL RAD, CHEST, 1 VIEW, NON [id number] 11:26:00Reason for exam:->post opShould this be performed at the bedside?->Yes [facility] REC[facility] : 1945 Sex: FFINAL REPORT CLINICAL HISTORY: post op TECHNIQUE: 1 view of the chest. COMPARISON: 02/22/2023 IMPRESSION: Bilateral airspace opacities and small pleural effusions are grossly unchanged.The cardiomediastinal silhouette is magnified by technique. Signed: Beth Cash MDReport Verified Date/Time: 02/23/2023 11:26:25 C METABOLIC [id number] 07:03:38 Test Item Value Reference Range Interpretation Comments SODIUM (BEAKER) 133 meq/L 136-145 L (test code = 381) POTASSIUM 4.2 meq/L 3.5-5.1 Specimen slight ly (BEAKER) (test hemolyzed code = 379) CHLORIDE (BEAKER) 105 meq/L 98-107 (test code = 382) CO2 (BEAKER) 21 meq/L 22-29 L (test code = 355) BLOOD UREA 6 mg/dL 7-21 L NITROGEN (BEAKER) (test code = 354) CREATININE 0.56 mg/dL 0.57-1.25 L Specimen slight ly (BEAKER) (test hemolyzed code = 358) GLUCOSE RANDOM 104 mg/dL 70-105 (BEAKER) (test code = 652) CALCIUM (BEAKER) 7.7 mg/dL 8.4-10.2 L (test code = 697) EGFR (BEAKER) 94 Interpretatio n of eGFR (test code = mL/min/1.73 values Stage De scription 1092) sq m Result G1 Tiff l or high >=90 G2 Mildly decreased 60-89 G3a Mildl y to moderately 45-5 9 G3b Moderately to s everely 30-44 G4 Severl y decreased 15-29 G5 Kidney failure <15Reported eGF R is based on the CKD-EPI 2020 equation that d oes not use a race coefficientEsti mated GFR is not as accur ate as Creatinine Narda radha in predicting glom erular filtration rate . Estimated GFR is not appl icable for dialysis patien ts Gaming Department Head ID - ADMINPOCT-GLUCOSE [id number] 06:13:26 Test Item Value Reference Range Interpretation Comments POC-GLUCOSE METER 101 mg/dL 70-110 : TESTED A T [facility] 6720 (BEAKER) (test code = AMIE [place], 1538) [id number]: Gaming Department Head/Techni cris ID = [id number] for PE RALES, CAITLYN CBC W/PLT COUNT & AUTO [id number] 05:50:25 Test Item Value Reference Range Interpretation Comments WHITE BLOOD CELL COUNT (BEAKER) 5.5 K/ L 3.5-10.5 (test code = 775) RED BLOOD CELL COUNT (BEAKER) 3.31 M/ L 3.93-5.22 L (test code = 761) HEMOGLOBIN (BEAKER) (test code = 10.6 GM/DL 11.2-15.7 L 410) HEMATOCRIT (BEAKER) (test code = 33.4 % 34.1-44.9 L 411) MEAN CORPUSCULAR VOLUME (BEAKER) 101 fL 79-95 H (test code = 753) MEAN CORPUSCULAR HEMOGLOBIN 32.0 pg 25.6-32.2 (BEAKER) (test code = 751) MEAN CORPUSCULAR HEMOGLOBIN CONC 31.7 GM/DL 32.2-35.5 L (BEAKER) (test code = 752) RED CELL DISTRIBUTION WIDTH 14.2 % 11.7-14.4 (BEAKER) (test code = 412) PLATELET COUNT (BEAKER) (test 240 K/CU MM 150-450 code = 756) MEAN PLATELET VOLUME (BEAKER) 10.4 fL 9.4-12.3 (test code = 754) NUCLEATED RED BLOOD CELLS 0 /100 WBC 0-0 (BEAKER) (test code = 413) NEUTROPHILS RELATIVE PERCENT 77 % (BEAKER) (test code = 429) LYMPHOCYTES RELATIVE PERCENT 11 % (BEAKER) (test code = 430) MONOCYTES RELATIVE PERCENT 10 % (BEAKER) (test code = 431) EOSINOPHILS RELATIVE PERCENT 1 % (BEAKER) (test code = 432) BASOPHILS RELATIVE PERCENT 0 % (BEAKER) (test code = 437) NEUTROPHILS ABSOLUTE COUNT 4.22 K/ L 1.56-6.13 (BEAKER) (test code = 670) LYMPHOCYTES ABSOLUTE COUNT 0.60 K/ L 1.18-3.74 L (BEAKER) (test code = 414) MONOCYTES ABSOLUTE COUNT (BEAKER) 0.53 K/ L 0.24-0.36 H (test code = 415) EOSINOPHILS ABSOLUTE COUNT 0.06 K/ L 0.04-0.36 (BEAKER) (test code = 416) BASOPHILS ABSOLUTE COUNT (BEAKER) 0.02 K/ L 0.01-0.08 (test code = 417) IMMATURE GRANULOCYTES-RELATIVE 1.30 % 0.00-1.00 H PERCENT (BEAKER) (test code = 2801) CT, CHEST WITH IV CONTRAST- PE TEST [id number] 02:04:00Unlisted Reason for Exam - Click Yes and Enter Reason Below->YesUnlisted Reason for Exam->concern for PE, possible recurrent hiatal hernia [facility] : 1945 Sex: FFINAL REPORT TECHNIQUE: CT of the chest, abdomen, and pelvis WITH intravenous contrast and WITHOUT oral contrast. Coronal and sagittal reconstructions were provided. MIP images were provided to better assess the vasculature. Dose modulation, iterative reconstruction, and/or weight-based adjustment of the mA/kV was utilized to reduce the radiation dose to as low as reasonably achievable. INDICATION: Unlisted Reason for Examconcern for PE, possible recurrent hiatal hernia. COMPARISON:None. FINDINGS: LINES/TUBES: None. PULMONARY ARTERIES: Proximal to the bifurcation of the main pulmonary artery, the main pulmonary artery is 3.4 cm in diameter. No filling defects within the pulmonaryarteries to suggest pulmonary embolus. LUNGS AND AIRWAYS: There is complete collapse of the left lower lobe. Compressive atelectatic changes partially collapsing the right lower lobe. There are scattered irregular nodular and tree-in-bud opacities within the right upper lobe fracture/inflammatory etiology. The central airways are patent.PLEURA: Bilateral moderate-sized pleural effusions, left greaterthan right, new since the prior examination.HEART AND MEDIASTINUM: The visualized thyroid gland is normal. No significant mediastinal, hilar, or axillary lymphadenopathy. Heart is within normal limits i n size. No pericardial effusion. Coronary atherosclerotic calcifications are present. No thoracic aortic aneurysm or dissection. Within the posterior mediastinum surrounding the esophagus is loculated collection measuring approximately 14.1 x 6.7 x 5.5 cm. Within its left anterior aspect there is an air-fluid level. HEPATOBILIARY: There is a linear area of decreased attenuation within the left lobe of the liver possibly edema from retractor during recent surgery. Cholelithiasis. No pericholecystic inflammatory changes by CT. No biliary ductal dilatation.SPLEEN: No splenomegaly.PANCREAS: No focal masses or ductal dilatation. ADRENALS: No adrenal nodules.KIDNEYS/URETERS: No hydronephrosis, stones, or solid mass lesions.PELVIC ORGANS/BLADDER: Prior hysterectomy. PERITONEUM/RETROPERITONEUM: No free air or fluid.LYMPH NODES: No lymphadenopathy.VESSELS: Unremarkable. GI TRACT: No distention or wall thi ckening. Colonic diverticulosis without evidence for acute diverticulitis. BONES AND SOFT TISSUES: Compression deformities of the T6, T7, T8, T9, T10, T12 and L1 vertebral bodies, as before. There is chronic-appearing superior endplate depression of the L5 vertebral body. IMPRESSION: 1. No evidence for acute pulmonary thromboembolic disease. No thoracic aortic aneurysm or dissection.2. New moderate-sized bilateral pleural effusions. No pneumothorax. There is complete loss of the left lower lobe and partial collapse of the right lower lobe. Additional scattered infectious/inflammatory opacities within the right upper lobe.3. Apparent posterior mediastinal collection surrounding the distal esophagusmeasuring 14.1 x 6.7 x 5.5 cm with air-fluid level. No recurrent hiatal hernia identified.4. Cholelithiasis. No pericholecystic inflammatory changes by CT.5. Colonic diverticulosis without evidence foracute diverticulitis. Signed: Lara Tamez MDReport Verified Date/Time: 02/23/2023 02:04:13 E lectronically signed by: LARA TAMEZ MD on 02/23/2023 02:04 AMCT, [id number] 02:04:00Unlisted Reason for Exam - Click Yes and Enter Reason Below->NoProtocol Please Specify:->Standard ProtocolWill this procedure require oral contrast?->No [facility] 1945 Sex: FFINAL REPORT TECHNIQUE: CT of the chest, abdomen, and pelvis WITH intravenous contrast and WITHOUT oral contrast. Coronal and sagittal reconstructions were provided. MIP images were provided to better assess the vasculature. Dose modulation, iterative reconstruction, and/or weight-based adjustment of the mA/kV was utilized to reduce the radiation dose to as low as reasonably achievable. INDICATION: Unlisted Reason for Examconcern for PE, possible recurrent hiatal hernia. COMPARISON: None. FINDINGS: LINES/TUBES: None. PULMONARY ARTERIES: Proximal to the bifurcation of the main pulmonary artery, the main pulmonary artery is 3.4 cm in diameter. No filling defects within the pulmonary arteries to suggest pulmonary embolus. LUNGS AND AIRWAYS: There is complete collapse of the left lower lobe. Compressive atelectatic changes partially collapsing the right lower lobe. There are scattered irregular nodular and tree-in-bud opacities within the right upper lobe fracture/inflammatory etiology. The central airways are patent.PLEURA: Bilateral moderate-sized pleural effusions, left greater than right, new since the prior examination.HEART AND MEDIASTINUM: The visualized thyroid gland is normal. No significant mediastinal, hilar, or axillary lymphadenopathy. Heart is within normal limits in size. No pericardial effusion. Coronary atherosclerotic calcifications are present. No thoracic aortic aneurysm or dissection. Within the posterior mediastinum surrounding the esophagus is loculated collection measuring approximately 14.1 x 6.7 x 5.5 cm. Within its left anterior aspect there is an air-fluid level. HEPATOBILIARY: There is a linear area of decreased attenuation within the left lobe ofthe liver possibly edema from retractor during recent surgery. Cholelithiasis. No pericholecystic inflammatory changes by CT. No biliary ductal dilatation.SPLEEN: No splenomegaly.PANCREAS: No focal masses or ductal dilatation. ADRENALS: No adrenal nodules.KIDNEYS/URETERS: No hydronephrosis, stones, orsolid mass lesions.PELVIC ORGANS/BLADDER: Prior hysterectomy. PERITONEUM/RETROPERITONEUM: No free air or fluid.LYMPH NODES: No lymphadenopathy.VESSELS: Unremarkable. GI TRACT: No distention or wall thic kening. Colonic diverticulosis without evidence for acute diverticulitis. BONES AND SOFT TISSUES: Compression deformities of the T6, T7, T8, T9, T10, T12 and L1 vertebral bodies, as before. There is chronic-appearing superior endplate depression of the L5 vertebral body. IMPRESSION: 1. No evidence foracute pulmonary thromboembolic disease. No thoracic aortic aneurysm or dissection.2. New moderate-sized bilateral pleural effusions. No pneumothorax. There is complete loss of the left lower lobe and partial collapse of the right lower lobe. Additional scattered infectious/inflammatory opacities within the right upper lobe.3. Apparent posterior mediastinal collection surrounding the distal esophagus measuring 14.1 x 6.7 x 5.5 cm with air-fluid level. No recurrent hiatal hernia identified.4. Cholelithiasis. No pericholecystic inflammatory changes by CT.5. Colonic diverticulosis without evidence for acute diverticulitis. Signed: Lara Tamez MDReport Verified Date/Time: 02/23/2023 02:04:13 POCT-GLUCOSE [id number] 23:47:33 Test Item Value Reference Range Interpretation Comments POC-GLUCOSE METER 114 mg/dL 70-110 H : TESTED A T [facility] 6720 ([employer]) (test code = AMIE [place]OME[place], 1538) [id number]: Gaming Department Head/Techni cris ID = [id number] for PE RALES, CAITLYN POCT-GLUCOSE [id number] 17:23:55 Test Item Value Reference Range Interpretation Comments POC-GLUCOSE METER 104 mg/dL 70-110 : TESTED A T [facility] 6720 (BEAKER) (test code = AMIE Neumann [facility], 1538) [id number]: Gaming Department Head/Techni cris ID = [id number] for Pa Philipjustine ARTIS, ABDOMEN/KUB, 1 VIEW [id number] 13:35:00Reason for exam:->increased abdominal distention, eval bowel gas pattern [facility] : 1945 Sex: FFINAL REPORT CLINICAL HISTORY: increased abdominal distention, eval bowel gas pattern TECHNIQUE: Supine abdomen COMPARISON: 02/17/2023 IMPRESSION: There is an absence of bowel gas, and dilated fluid-filled loops of bowel cannot be excluded. There are multiple new round radiodensities projecting in the pelvis. Free air and air-fluid levels are not definitively seen, but cannot be excluded on the supine view. Signed: Beth Cash MDReport Verified Date/Time: 02/22/2023 13:35:27 POCT-GLUCOSE [id number] 12:00:32 Test Item Value Reference Range Interpretation Comments POC-GLUCOSE METER 144 mg/dL 70-110 H : TESTED A T [facility] 6720 (BEAKER) (test code = AMIE Neumann [facility], 1538) [id number]: Gaming Department Head/Techni cris ID = [id number] for Pa Philip RAD, CHEST, 1 VIEW, NON [id number] 09:51:00Reason for exam:->post opShould this be performed at the bedside?->Yes [facility] 1945 Sex: FFINAL REPORT CLINICAL HISTORY: post op TECHNIQUE: 1 view of the chest. COMPARISON: 02/21/2023 IMPRESSION: Diffuse bilateral airspace opacities and small pleural effusions unchanged. The cardiomediastinal silhouette is magnified by technique. Signed: [facility] Verified Date/Time: 02/22/2023 09:51:41 -GLUCOSE [id number] 05:17:33 Test Item Value Reference Range Interpretation Comments POC-GLUCOSE METER 126 mg/dL 70-110 H : Notified RN/MD: TESTED (BEAKER) (test code AT [facility] [address] = 1538) [facility], [facility] 30: Gaming Department Head/Techni cris ID = [id number] for KADEN BLISS BASIC METABOLIC [id number] 05:09:44 Test Item Value Reference Range Interpretation Comments SODIUM (BEAKER) 137 meq/L 136-145 (test code = 381) POTASSIUM 3.8 meq/L 3.5-5.1 (BEAKER) (test code = 379) CHLORIDE (BEAKER) 106 meq/L 98-107 (test code = 382) CO2 (BEAKER) 22 meq/L 22-29 (test code = 355) BLOOD UREA 5 mg/dL 7-21 L NITROGEN (BEAKER) (test code = 354) CREATININE 0.57 mg/dL 0.57-1.25 (BEAKER) (test code = 358) GLUCOSE RANDOM 120 mg/dL 70-105 H (BEAKER) (test code = 652) CALCIUM (BEAKER) 8.0 mg/dL 8.4-10.2 L (test code = 697) EGFR (BEAKER) 94 Interpretatio n of eGFR (test code = mL/min/1.73 values Stage De scription 1092) sq m Result G1 Tiff l or high >=90 G2 Mildly decreased 60-89 G3a Mildl y to moderately 45-5 9 G3b Moderately to s everely 30-44 G4 Severl y decreased 15-29 G5 Kidney failure <15Reported eGF R is based on the CKD-EPI 2020 equation that d oes not use a race coefficientEsti mated GFR is not as accur ate as Creatinine Narda radha in predicting glom erular filtration rate . Estimated GFR is not appl icable for dialysis patien ts Gaming Department Head ID - ROBERT WCBC W/PLT COUNT & AUTO [id number] 04:34:44 Test Item Value Reference Range Interpretation Comments WHITE BLOOD CELL COUNT (BEAKER) 5.3 K/ L 3.5-10.5 (test code = 775) RED BLOOD CELL COUNT (BEAKER) 3.24 M/ L 3.93-5.22 L (test code = 761) HEMOGLOBIN (BEAKER) (test code = 10.4 GM/DL 11.2-15.7 L 410) HEMATOCRIT (BEAKER) (test code = 32.2 % 34.1-44.9 L 411) MEAN CORPUSCULAR VOLUME (BEAKER) 99 fL 79-95 H (test code = 753) MEAN CORPUSCULAR HEMOGLOBIN 32.1 pg 25.6-32.2 (BEAKER) (test code = 751) MEAN CORPUSCULAR HEMOGLOBIN CONC 32.3 GM/DL 32.2-35.5 (BEAKER) (test code = 752) RED CELL DISTRIBUTION WIDTH 14.0 % 11.7-14.4 (BEAKER) (test code = 412) PLATELET COUNT (BEAKER) (test 195 K/CU MM 150-450 code = 756) MEAN PLATELET VOLUME (BEAKER) 10.4 fL 9.4-12.3 (test code = 754) NUCLEATED RED BLOOD CELLS 0 /100 WBC 0-0 (BEAKER) (test code = 413) NEUTROPHILS RELATIVE PERCENT 77 % (BEAKER) (test code = 429) LYMPHOCYTES RELATIVE PERCENT 12 % (BEAKER) (test code = 430) MONOCYTES RELATIVE PERCENT 9 % (BEAKER) (test code = 431) EOSINOPHILS RELATIVE PERCENT 2 % (BEAKER) (test code = 432) BASOPHILS RELATIVE PERCENT 0 % (BEAKER) (test code = 437) NEUTROPHILS ABSOLUTE COUNT 4.07 K/ L 1.56-6.13 (BEAKER) (test code = 670) LYMPHOCYTES ABSOLUTE COUNT 0.63 K/ L 1.18-3.74 L (BEAKER) (test code = 414) MONOCYTES ABSOLUTE COUNT (BEAKER) 0.48 K/ L 0.24-0.36 H (test code = 415) EOSINOPHILS ABSOLUTE COUNT 0.08 K/ L 0.04-0.36 (BEAKER) (test code = 416) BASOPHILS ABSOLUTE COUNT (BEAKER) 0.01 K/ L 0.01-0.08 (test code = 417) IMMATURE GRANULOCYTES-RELATIVE 0.60 % 0.00-1.00 PERCENT (BEAKER) (test code = 2801) POCT-GLUCOSE [id number] 00:50:42 Test Item Value Reference Range Interpretation Comments POC-GLUCOSE METER 97 mg/dL 70-110 : TESTED A T [facility] 6720 (BEAKER) (test code = AMIE Neumann [facility], 1538) [address]: Gaming Department Head/Techni cris ID = [id number] for KADEN BLISS RAD, CHEST, 1 VIEW, NON [id number] 07:09:00Reason for exam:->new respiratory distress s/p emesis, evaluate for new cardiopulmonary processShould this be performed at the bedside?->Yes [facility] 1945 Sex: FFINAL REPORT CLINICAL HISTORY: new respiratory distress s/p emesis, evaluate for newcardiopulmonary process TECHNIQUE: 1 view of the chest. COMPARISON: 02/20/2023 IMPRESSION: Low lung volumes are again seen with diffuse bilateral airspace opacities grossly similar appearing. There are new/increased small bilateral pleural effusions. The cardiomediastinal silhouette is magnified by technique. Signed: Beth Cash MDReport Verified Date/Time: 02/21/2023 07:09:20 W/PLT COUNT & AUTO [id number] 06:28:30 Test Item Value Reference Range Interpretation Comments WHITE BLOOD CELL COUNT 7.8 K/ L 3.5-10.5 (BEAKER) (test code = 775) RED BLOOD CELL COUNT 3.92 M/ L 3.93-5.22 L (BEAKER) (test code = 761) HEMOGLOBIN (BEAKER) 12.1 GM/DL 11.2-15.7 (test code = 410) HEMATOCRIT (BEAKER) 37.7 % 34.1-44.9 (test code = 411) MEAN CORPUSCULAR 96 fL 79-95 H Discordant results VOLUME (BEAKER) (test compar ed to previous code = 753) results; clinic al correlation req uired MEAN CORPUSCULAR 30.9 pg 25.6-32.2 HEMOGLOBIN (BEAKER) (test code = 751) MEAN CORPUSCULAR 32.1 GM/DL 32.2-35.5 L HEMOGLOBIN CONC (BEAKER) (test code = 752) RED CELL DISTRIBUTION 13.6 % 11.7-14.4 WIDTH (BEAKER) (test code = 412) PLATELET COUNT 200 K/CU MM 150-450 Discordant re sults (BEAKER) (test code = compar ed to previous 756) results; clinic al correlation req uired MEAN PLATELET VOLUME 10.4 fL 9.4-12.3 (BEAKER) (test code = 754) NUCLEATED RED BLOOD 0 /100 WBC 0-0 CELLS (BEAKER) (test code = 413) NEUTROPHILS RELATIVE 88 % PERCENT (BEAKER) (test code = 429) LYMPHOCYTES RELATIVE 4 % PERCENT (BEAKER) (test code = 430) MONOCYTES RELATIVE 8 % PERCENT (BEAKER) (test code = 431) EOSINOPHILS RELATIVE 0 % PERCENT (BEAKER) (test code = 432) BASOPHILS RELATIVE 0 % PERCENT (BEAKER) (test code = 437) NEUTROPHILS ABSOLUTE 6.84 K/ L 1.56-6.13 H COUNT (BEAKER) (test code = 670) LYMPHOCYTES ABSOLUTE 0.32 K/ L 1.18-3.74 L COUNT (BEAKER) (test code = 414) MONOCYTES ABSOLUTE 0.59 K/ L 0.24-0.36 H COUNT (BEAKER) (test code = 415) EOSINOPHILS ABSOLUTE 0.01 K/ L 0.04-0.36 L COUNT (BEAKER) (test code = 416) BASOPHILS ABSOLUTE 0.01 K/ L 0.01-0.08 COUNT (BEAKER) (test code = 417) IMMATURE 0.30 % 0.00-1.00 GRANULOCYTES-RELATIVE PERCENT (BEAKER) (test code = 2801) BASIC METABOLIC [id number] 05:17:54 Test Item Value Reference Range Interpretation Comments SODIUM (BEAKER) 136 meq/L 136-145 (test code = 381) POTASSIUM 3.6 meq/L 3.5-5.1 Specimen slight ly (BEAKER) (test hemolyzed code = 379) CHLORIDE (BEAKER) 103 meq/L 98-107 (test code = 382) CO2 (BEAKER) 15 meq/L 22-29 L (test code = 355) BLOOD UREA 9 mg/dL 7-21 NITROGEN (BEAKER) (test code = 354) CREATININE 0.59 mg/dL 0.57-1.25 Specimen slight ly (BEAKER) (test hemolyzed code = 358) GLUCOSE RANDOM 76 mg/dL 70-105 (BEAKER) (test code = 652) CALCIUM (BEAKER) 8.5 mg/dL 8.4-10.2 (test code = 697) EGFR (BEAKER) 93 Interpretatio n of eGFR (test code = mL/min/1.73 values Stage De scription 1092) sq m Result G1 Tiff l or high >=90 G2 Mildly decreased 60-89 G3a Mildl y to moderately 45-5 9 G3b Moderately to s everely 30-44 G4 Severl y decreased 15-29 G5 Kidne y failure <15Reported eGF R is based on the CKD-EPI 2020 equation that d oes not use a race coefficientEsti mated GFR is not as accur ate as Creatinine Narda radha in predicting glom erular filtration rate . Estimated GFR is not appl icable for dialysis patien ts Gaming Department Head ID - BSPOCT-GLUCOSE [id number] 17:58:35 Test Item Value Reference Range Interpretation Comments POC-GLUCOSE METER 90 mg/dL 70-110 : TESTED A T [facility] 6720 ([employer]) (test code = [facility], 153) [address]: Gaming Department Head/Techni cris ID = [id number] for Yoon Morales POCT-GLUCOSE [id number] 15:46:53 Test Item Value Reference Range Interpretation Comments POC-GLUCOSE METER 91 mg/dL 70-110 : TESTED A T [facility] 6720 ([employer]) (test code = [facility], 1538) [address]: Gaming Department Head/Techni cris ID = [id number] for Malu Bobo POCT-GLUCOSE [id number] 11:59:15 Test Item Value Reference Range Interpretation Comments POC-GLUCOSE METER 79 mg/dL 70-110 : TESTED A T [facility] 6720 ([employer]) (test code = [facility], 1538) [address]: Gaming Department Head/Techni cris ID = [id number] for Yoon Morales RAD, CHEST, 1 VIEW, NON [id number] 11:00:00Reason for exam:->post opShould this be performed at the bedside?->Yes [facility] SHIRA : 1945 Sex: FFINAL REPORT CLINICAL HISTORY: post op TECHNIQUE: 1 view of the chest. COMPARISON: 02/19/2023 IMPRESSION: Lines and tubes removed. No pneumothorax. Low lung volumes again seen with diffuse bilateral airspace opacities. Pleural effusions cannot be excluded. The cardiomediastinal silhouette is magnified by technique. Signed: Beth Cash MDReport Verified Date/Time: 02/20/2023 11:00:30 IUM, [id number] 07:55:40 Test Item Value Reference Range Interpretation Comments CALCIUM IONIZED (BEAKER) (test 1.09 mmol/L 1.12-1.27 L code = 698) PH, BLOOD (BEAKER) (test code = 7.42 1810) [id number] 07:22:10 Test Item Value Reference Range Interpretation Comments PHOSPHORUS (BEAKER) 1.9 mg/dL 2.3-4.7 L Specimen slightly (test code = 604) hemolyzed Gaming Department Head ID - ROBERT WPOCT-GLUCOSE [id number] 07:14:36 Test Item Value Reference Range Interpretation Comments POC-GLUCOSE METER 75 mg/dL 70-110 : TESTED A T [facility] 6720 ([employer]AKER) (test code = AMIE Neumann [facility], 1538) [address]: Gaming Department Head/Techni cris ID = [id number] for Freddie Michelle BASIC METABOLIC [id number] 04:04:35 Test Item Value Reference Range Interpretation Comments SODIUM (BEAKER) 138 meq/L 136-145 (test code = 381) POTASSIUM 3.6 meq/L 3.5-5.1 (BEAKER) (test code = 379) CHLORIDE (BEAKER) 103 meq/L 98-107 (test code = 382) CO2 (BEAKER) 26 meq/L 22-29 (test code = 355) BLOOD UREA 5 mg/dL 7-21 L NITROGEN (BEAKER) (test code = 354) CREATININE 0.51 mg/dL 0.57-1.25 L (BEAKER) (test code = 358) GLUCOSE RANDOM 82 mg/dL 70-105 (BEAKER) (test code = 652) CALCIUM (BEAKER) 7.8 mg/dL 8.4-10.2 L (test code = 697) EGFR (BEAKER) 96 Interpretatio n of eGFR (test code = mL/min/1.73 values Stage De scription 1092) sq m Result G1 Tiff l or high >=90 G2 Mildly decreased 60-89 G3a Mildl y to moderately 45-5 9 G3b Moderately to s everely 30-44 G4 Severl y decreased 15-29 G5 Kidney failure <15Reported eGF R is based on the CKD-EPI 2020 equation that d oes not use a race coefficientEsti mated GFR is not as accur ate as Creatinine Narda radha in predicting glom erular filtration rate . Estimated GFR is not appl icable for dialysis patien ts Gaming Department Head ID - ROBERT [id number] 03:30:45 Test Item Value Reference Range Interpretation Comments MAGNESIUM (BEAKER) (test code = 2.0 mg/dL 1.6-2.6 627) Gaming Department Head ID - ROBERT WCBC W/PLT COUNT & AUTO [id number] 02:37:17 Test Item Value Reference Range Interpretation Comments WHITE BLOOD CELL COUNT (BEAKER) 4.5 K/ L 3.5-10.5 (test code = 775) RED BLOOD CELL COUNT (BEAKER) 3.46 M/ L 3.93-5.22 L (test code = 761) HEMOGLOBIN (BEAKER) (test code = 11.0 GM/DL 11.2-15.7 L 410) HEMATOCRIT (BEAKER) (test code = 34.9 % 34.1-44.9 411) MEAN CORPUSCULAR VOLUME (BEAKER) 101 fL 79-95 H (test code = 753) MEAN CORPUSCULAR HEMOGLOBIN 31.8 pg 25.6-32.2 (BEAKER) (test code = 751) MEAN CORPUSCULAR HEMOGLOBIN CONC 31.5 GM/DL 32.2-35.5 L (BEAKER) (test code = 752) RED CELL DISTRIBUTION WIDTH 13.3 % 11.7-14.4 (BEAKER) (test code = 412) PLATELET COUNT (BEAKER) (test 132 K/CU MM 150-450 L code = 756) MEAN PLATELET VOLUME (BEAKER) 10.3 fL 9.4-12.3 (test code = 754) NUCLEATED RED BLOOD CELLS 0 /100 WBC 0-0 (BEAKER) (test code = 413) NEUTROPHILS RELATIVE PERCENT 77 % (BEAKER) (test code = 429) LYMPHOCYTES RELATIVE PERCENT 12 % (BEAKER) (test code = 430) MONOCYTES RELATIVE PERCENT 10 % (BEAKER) (test code = 431) EOSINOPHILS RELATIVE PERCENT 1 % (BEAKER) (test code = 432) BASOPHILS RELATIVE PERCENT 0 % (BEAKER) (test code = 437) NEUTROPHILS ABSOLUTE COUNT 3.47 K/ L 1.56-6.13 (BEAKER) (test code = 670) LYMPHOCYTES ABSOLUTE COUNT 0.53 K/ L 1.18-3.74 L (BEAKER) (test code = 414) MONOCYTES ABSOLUTE COUNT (BEAKER) 0.44 K/ L 0.24-0.36 H (test code = 415) EOSINOPHILS ABSOLUTE COUNT 0.03 K/ L 0.04-0.36 L (BEAKER) (test code = 416) BASOPHILS ABSOLUTE COUNT (BEAKER) 0.01 K/ L 0.01-0.08 (test code = 417) IMMATURE GRANULOCYTES-RELATIVE 0.40 % 0.00-1.00 PERCENT (BEAKER) (test code = 2801) POCT-GLUCOSE [id number] 00:06:10 Test Item Value Reference Range Interpretation Comments POC-GLUCOSE METER 79 mg/dL 70-110 : [facility] A T [facility] (test code = [facility], 153) 57714: Gaming Department Head/Techni cris ID = [id number] for Amita yonatanFreddie POCT-GLUCOSE [id number] 17:39:31 Test Item Value Reference Range Interpretation Comments POC-GLUCOSE METER 90 mg/dL 70-110 : TESTED A T [facility] 6720 (BEAKER) (test code = [facility], 153) 53461: Gaming Department Head/Techni cris ID = [id number] for Malu Bobo POCT-GLUCOSE [id number] 11:45:06 Test Item Value Reference Range Interpretation Comments POC-GLUCOSE METER 101 mg/dL 70-110 : TESTED A T [facility] 6720 (ARELIS) (test code = [facility] [place], 1538) 70[address]: Gaming Department Head/Techni cris ID = [id number] for Malu Talbot, [id number] 11:03:00Reason for exam:->assess position of stomach and esophagusCOMMUNITY [facility]: [facility] REC[facility] : 1945 Sex: FFINAL REPORT Limited esophagram HISTORY: Status post repair of paraesophageal herniaCOMPARISON: None FINDINGS: A limited esophagram was performed with Gastrografin. No definitive esophageal filling defects are visualized. The gastroesophageal junction appears patent. No contrast extrav asation is visualized to suggest postoperative leak. The opacified stomach appears entirely beneath the left hemidiaphragm. Total fluoroscopy time: 1.6 minutes Number of fluoroscopic images obtained: 5. Signed: Jason Kwong MDReport Verified Date/Time: 02/19/2023 11:03:39 Reading Location: [facility] C013X [facility] Consult Reading Room RAD, CHEST, 1 VIEW, NON [id number] 06:55:00Reason for exam:->post opShould this be performed at the bedside?->Yes [facility] 1945 Sex: FFINAL REPORT Chest one view: HISTORY: Postop Compared to 02/18/2023. There are increased interstitial opacities which may represent pulmonary vascular congestion. Bibasilar atelectasis is again present. The support apparatus appears unchanged in position. There is no pneumothorax. Cardiac size appears within normal limits. Signed: Danuta Odell MDReport Verified Date/Time: 02/19/2023 06:55:05 POCT-GLUCOSE [id number] 05:40:56 Test Item Value Reference Range Interpretation Comments POC-GLUCOSE METER 103 mg/dL 70-110 : TESTED A T [facility] 6720 (BEAKER) (test code = [facility], 15[facility] [address]: Gaming Department Head/Techni cris ID = [id number] for Trisha Crowell BASIC METABOLIC [id number] 04:35:06 Test Item Value Reference Range Interpretation Comments SODIUM (BEAKER) 136 meq/L 136-145 (test code = 381) POTASSIUM 3.7 meq/L 3.5-5.1 (BEAKER) (test code = 379) CHLORIDE (BEAKER) 104 meq/L 98-107 (test code = 382) CO2 (BEAKER) 24 meq/L 22-29 (test code = 355) BLOOD UREA 6 mg/dL 7-21 L NITROGEN (BEAKER) (test code = 354) CREATININE 0.57 mg/dL 0.57-1.25 (BEAKER) (test code = 358) GLUCOSE RANDOM 107 mg/dL 70-105 H (BEAKER) (test code = 652) CALCIUM (BEAKER) 7.9 mg/dL 8.4-10.2 L (test code = 697) EGFR (BEAKER) 94 Interpretatio n of eGFR (test code = mL/min/1.73 values Stage De scription 1092) sq m Result G1 Tiff l or high >=90 G2 Mildly decreased 60-89 G3a Mildl y to moderately 45-5 9 G3b Moderately to s everely 30-44 G4 Severl y decreased 15-29 G5 Kidne y failure <15Reported eGF R is based on the CKD-EPI 2020 equation that d oes not use a race coefficientEsti mated GFR is not as accur ate as Creatinine Narda radha in predicting glom erular filtration rate . Estimated GFR is not appl icable for dialysis patien ts Gaming Department Head ID - [id number] 04:33:29 Test Item Value Reference Range Interpretation Comments MAGNESIUM (BEAKER) (test code = 1.9 mg/dL 1.6-2.6 627) Gaming Department Head ID - ADMINCBC W/PLT COUNT & AUTO [id number] 03:54:31 Test Item Value Reference Range Interpretation Comments WHITE BLOOD CELL COUNT 6.2 K/ L 3.5-10.5 (BEAKER) (test code = 775) RED BLOOD CELL COUNT 3.76 M/ L 3.93-5.22 L (BEAKER) (test code = 761) HEMOGLOBIN (BEAKER) 11.9 GM/DL 11.2-15.7 (test code = 410) HEMATOCRIT (BEAKER) 37.5 % 34.1-44.9 (test code = 411) MEAN CORPUSCULAR 100 fL 79-95 H Discordant results VOLUME (BEAKER) (test compar ed to previous code = 753) results; clinic al correlation req uired MEAN CORPUSCULAR 31.6 pg 25.6-32.2 HEMOGLOBIN (BEAKER) (test code = 751) MEAN CORPUSCULAR 31.7 GM/DL 32.2-35.5 L HEMOGLOBIN CONC (BEAKER) (test code = 752) RED CELL DISTRIBUTION 13.8 % 11.7-14.4 WIDTH (BEAKER) (test code = 412) PLATELET COUNT 131 K/CU MM 150-450 L (BEAKER) (test code = 756) MEAN PLATELET VOLUME 10.2 fL 9.4-12.3 (BEAKER) (test code = 754) NUCLEATED RED BLOOD 0 /100 WBC 0-0 CELLS (BEAKER) (test code = 413) NEUTROPHILS RELATIVE 85 % PERCENT (BEAKER) (test code = 429) LYMPHOCYTES RELATIVE 7 % PERCENT (BEAKER) (test code = 430) MONOCYTES RELATIVE 7 % PERCENT (BEAKER) (test code = 431) EOSINOPHILS RELATIVE 0 % PERCENT (BEAKER) (test code = 432) BASOPHILS RELATIVE 0 % PERCENT (BEAKER) (test code = 437) NEUTROPHILS ABSOLUTE 5.27 K/ L 1.56-6.13 COUNT (BEAKER) (test code = 670) LYMPHOCYTES ABSOLUTE 0.44 K/ L 1.18-3.74 L COUNT (BEAKER) (test code = 414) MONOCYTES ABSOLUTE 0.46 K/ L 0.24-0.36 H COUNT (BEAKER) (test code = 415) EOSINOPHILS ABSOLUTE 0.00 K/ L 0.04-0.36 L COUNT (BEAKER) (test code = 416) BASOPHILS ABSOLUTE 0.01 K/ L 0.01-0.08 COUNT (BEAKER) (test code = 417) IMMATURE 0.20 % 0.00-1.00 GRANULOCYTES-RELATIVE PERCENT (BEAKER) (test code = 2801) POCT-GLUCOSE [id number] 01:25:29 Test Item Value Reference Range Interpretation Comments POC-GLUCOSE METER 102 mg/dL 70-110 : TESTED A T [facility] 6720 (BEAKER) (test code = [facility], 153) 59408: Gaming Department Head/Techni cris ID = [id number] for Wi joe, Trisha POCT-GLUCOSE [id number] 18:36:07 Test Item Value Reference Range Interpretation Comments POC-GLUCOSE METER 117 mg/dL 70-110 H : TESTED A T [facility] 6720 (BEAKER) (test code = [facility], 153) 96745: Gaming Department Head/Techni cris ID = [id number] for CATRACHITO MAGJERNIGAN (V), TY POCT-GLUCOSE [id number] 11:46:47 Test Item Value Reference Range Interpretation Comments POC-GLUCOSE METER 112 mg/dL 70-110 H : TESTED A T [facility] 6720 (BEAKER) (test code = [facility], 153) 74850: Gaming Department Head/Techni cris ID = [id number] for Adele Massey RAD, CHEST, 1 VIEW, NON [id number] 06:21:00Reason for exam:->post opShould this be performed at the bedside?->Yes [facility] 1945 Sex: FFINAL REPORT Chest one view: HISTORY: Postop, history of hiatal hernia Compared to 02/17/2023. The endotracheal tube has been removed. A nasogastric tube is unchanged in position with its distal tip coiled over the lower left hemithorax, again possibly within the distal esophagus or residual hernia. Bilateral inferior chest tubes are again present. There is no pneumothorax or pleural effusion. Decreased bibasilar atelectasis is noted. Cardiac size remains within normal limits. Signed:Danuta Odell [facility] Verified Date/Time: 02/18/2023 06:21:22 BASIC METABOLIC [id number] 02:56:36 Test Item Value Reference Range Interpretation Comments SODIUM (BEAKER) 139 meq/L 136-145 (test code = 381) POTASSIUM 3.9 meq/L 3.5-5.1 (BEAKER) (test code = 379) CHLORIDE (BEAKER) 107 meq/L 98-107 (test code = 382) CO2 (BEAKER) 21 meq/L 22-29 L (test code = 355) BLOOD UREA 6 mg/dL 7-21 L NITROGEN (BEAKER) (test code = 354) CREATININE 0.66 mg/dL 0.57-1.25 (BEAKER) (test code = 358) GLUCOSE RANDOM 114 mg/dL 70-105 H (BEAKER) (test code = 652) CALCIUM (BEAKER) 8.7 mg/dL 8.4-10.2 (test code = 697) EGFR (BEAKER) 90 Interpretatio n of eGFR (test code = mL/min/1.73 values Stage De scription 1092) sq m Result G1 Tiff l or high >=90 G2 Mildly decreased 60-89 G3a Mildl y to moderately 45-5 9 G3b Moderately to s everely 30-44 G4 Severl y decreased 15-29 G5 Kidney failure <15Reported eGF R is based on the CKD-EPI 2020 equation that d oes not use a race coefficientEsti mated GFR is not as accur ate as Creatinine Narda radha in predicting glom erular filtration rate . Estimated GFR is not appl icable for dialysis patien ts Gaming Department Head ID - [id number] 02:56:36 Test Item Value Reference Range Interpretation Comments MAGNESIUM (BEAKER) (test code = 2.0 mg/dL 1.6-2.6 627) Gaming Department Head ID - ADMINCBC W/PLT COUNT & AUTO [id number] 02:42:41 Test Item Value Reference Range Interpretation Comments WHITE BLOOD CELL COUNT 7.0 K/ L 3.5-10.5 (BEAKER) (test code = 775) RED BLOOD CELL COUNT 4.31 M/ L 3.93-5.22 (BEAKER) (test code = 761) HEMOGLOBIN (BEAKER) 13.4 GM/DL 11.2-15.7 (test code = 410) HEMATOCRIT (BEAKER) 40.7 % 34.1-44.9 (test code = 411) MEAN CORPUSCULAR 94 fL 79-95 Discordant results VOLUME (BEAKER) (test compar ed to previous code = 753) results; clinic al correlation req uired MEAN CORPUSCULAR 31.1 pg 25.6-32.2 HEMOGLOBIN (BEAKER) (test code = 751) MEAN CORPUSCULAR 32.9 GM/DL 32.2-35.5 HEMOGLOBIN CONC (BEAKER) (test code = 752) RED CELL DISTRIBUTION 13.7 % 11.7-14.4 WIDTH (BEAKER) (test code = 412) PLATELET COUNT 159 K/CU MM 150-450 (BEAKER) (test code = 756) MEAN PLATELET VOLUME 9.8 fL 9.4-12.3 (BEAKER) (test code = 754) NUCLEATED RED BLOOD 0 /100 WBC 0-0 CELLS (BEAKER) (test code = 413) NEUTROPHILS RELATIVE 83 % PERCENT (BEAKER) (test code = 429) LYMPHOCYTES RELATIVE 10 % PERCENT (BEAKER) (test code = 430) MONOCYTES RELATIVE 7 % PERCENT (BEAKER) (test code = 431) EOSINOPHILS RELATIVE 0 % PERCENT (BEAKER) (test code = 432) BASOPHILS RELATIVE 0 % PERCENT (BEAKER) (test code = 437) NEUTROPHILS ABSOLUTE 5.80 K/ L 1.56-6.13 COUNT (BEAKER) (test code = 670) LYMPHOCYTES ABSOLUTE 0.69 K/ L 1.18-3.74 L COUNT (BEAKER) (test code = 414) MONOCYTES ABSOLUTE 0.51 K/ L 0.24-0.36 H COUNT (BEAKER) (test code = 415) EOSINOPHILS ABSOLUTE 0.00 K/ L 0.04-0.36 L COUNT (BEAKER) (test code = 416) BASOPHILS ABSOLUTE 0.00 K/ L 0.01-0.08 L COUNT (BEAKER) (test code = 417) IMMATURE 0.40 % 0.00-1.00 GRANULOCYTES-RELATIVE PERCENT (BEAKER) (test code = 2801) Blood gas, arterial: If A-Line [id number] 02:40:00 Test Item Value Reference Range Interpretation Comments pH, Arterial (test code 7.39 7.35-7.45 = 2744-1) pCO2, Arterial (test 40 See_Comment [Autom ated code = 2018-) message] The system which generated this result transmitted reference range : 35 - 45 mm Hg. The reference range was not used to interpret this result as normal/abnormal . pO2, Arterial (test 107 See_Comment H [Automa abner code = 2703-7) message] The system which generated this result transmitted reference range : 80 - 90 mm Hg. The reference range was not used to interpret this result as normal/abnormal . O2 Sat, Arterial (test 97.8 % 96.0-97.0 H code = 2708-6) HCO3, Arterial (test 24 mmol/L 21-29 code = 1960-4) Base Excess, Arterial -1.2 mmol/L -2.0-3.0 (test code = 1925-7) Patient Temperature 37.0 (test code = 8310-5) FIO2 (test code = 1819) 21 Lab Interpretation Abnormal (test code = 95465-9) [facility] [id number] 02:40:00 Test Item Value Reference Range Interpretation Comments PH ARTERIAL (BEAKER) (test code = 7.39 7.35-7.45 383) PCO2 ARTERIAL (BEAKER) (test code 40 mm Hg 35-45 = 384) PO2 ARTERIAL (BEAKER) (test code 107 mm Hg 80-90 H = 385) O2 SATURATION ARTERIAL (BEAKER) 97.8 % 96.0-97.0 H (test code = 386) HCO3 ARTERIAL (BEAKER) (test code 24 mmol/L 21-29 = 388) BASE EXCESS ARTERIAL (BEAKER) -1.2 mmol/L -2.0-3.0 (test code = 387) PATIENT TEMPERATURE (BEAKER) 37.0 (test code = 1818) FIO2 (BEAKER) (test code = 1819) 21.0 POCT-GLUCOSE [id number] 23:44:06 Test Item Value Reference Range Interpretation Comments POC-GLUCOSE METER 123 mg/dL 70-110 H : TESTED A T [facility] 6720 (BEAKER) (test code = [facility] [place], 1538) 134[address]: Gaming Department Head/Techni cris ID = [id number] for Re pati, Isacc RAD, CHEST, 1 VIEW, NON [id number] 17:24:00Reason for exam:->POST-OPShould this be performed at the bedside?->Yes [facility] : 1945 Sex: FFINAL REPORT Chest, one view. One view of the abdomen HISTORY: POST-OP COMPARISON: Radiograph from earlier today IMPRESSION: Interval intubation with the endotracheal tube 5.3 cm acquired. A NG tube has its tip over the lower thorax. Based on the course, this may be in the distal esophagus or a residual hernia sac. Placement in the lung is considered less likely since the NG tube appears not within the proximal portion of the trachea. Bilateral pleural catheters are in place. Bilateral atelectasis. There is some lucency in the left lower chest from an indeterminate cause. This couldbe a loculated pneumothorax. The cardiac silhouette is unchanged in size. No acute bone abnormality.A catheter overlies the urinary bladder. The bowel gas pattern is normal. Subcutaneous gas over the abdominal and chest wall. Signed: Mary Huber MDReport Verified Date/Time: 02/17/2023 17:24:31 RAD, ABDOMEN/KUB, 1 VIEW [id number] 17:24:00 Reason for exam:->NGT tube placement, post opShould this be performed at the bedside?->[facility] : 1945 Sex: FFINAL REPORT Chest, one view. One view of the abdomen HISTORY: POST-OP COMPARISON: Radiograph from earlier today IMPRESSION: Interval intubation with the endotracheal tube 5.3 cm acquired. A NG tube has its tip over the lower thorax. Based on the course, this may be in the distal esophagus or a residual hernia sac. Placement in the lung is considered less likely since the NG tube appears not within the proximal portion of the trachea. Bilateral pleural catheters are in place. Bilateral atelectasis. There is some lucency in the left lower chest from an indeterminate cause. This couldbe a loculated pneumothorax. The cardiac silhouette is unchanged in size. No acute bone abnormality.A catheter overlies the urinary bladder. The bowel gas pattern is normal. Subcutaneous gas over the abdominal and chest wall. Signed: Mary Huber MDReport Verified Date/Time: 02/17/2023 17:24:31 POCT-GLUCOSE [id number] 15:48:09 Test Item Value Reference Range Interpretation Comments POC-GLUCOSE METER 129 mg/dL 70-110 H : TESTED A T [facility] 6720 (BEAKER) (test code = [facility] [place], 1538) 24182: Gaming Department Head/Techni cris ID = [id number] for Adele Massey [id number] 15:45:45 Test Item Value Reference Range Interpretation Comments MAGNESIUM (BEAKER) (test code = 1.7 mg/dL 1.6-2.6 627) Gaming Department Head ID - ADMINBASIC METABOLIC [id number] 15:45:44 Test Item Value Reference Range Interpretation Comments SODIUM (BEAKER) 137 meq/L 136-145 (test code = 381) POTASSIUM 3.5 meq/L 3.5-5.1 (BEAKER) (test code = 379) CHLORIDE (BEAKER) 108 meq/L 98-107 H (test code = 382) CO2 (BEAKER) 21 meq/L 22-29 L (test code = 355) BLOOD UREA 9 mg/dL 7-21 NITROGEN (BEAKER) (test code = 354) CREATININE 0.66 mg/dL 0.57-1.25 (BEAKER) (test code = 358) GLUCOSE RANDOM 145 mg/dL 70-105 H (BEAKER) (test code = 652) CALCIUM (BEAKER) 9.0 mg/dL 8.4-10.2 (test code = 697) EGFR (BEAKER) 90 Interpretatio n of eGFR (test code = mL/min/1.73 values Stage De scription 1092) sq m Result G1 Tiff l or high >=90 G2 Mildly decreased 60-89 G3a Mildl y to moderately 45-5 9 G3b Moderately to s everely 30-44 G4 Severl y decreased 15-29 G5 Kidney failure <15Reported eGF R is based on the CKD-EPI 2020 equation that d oes not use a race coefficientEsti mated GFR is not as accur ate as Creatinine Narda radha in predicting glom erular filtration rate . Estimated GFR is not appl icable for dialysis patien ts Gaming Department Head ID - ADMINPROTHROMBIN TIME/[id number] 15:43:19 Test Item Value Reference Range Interpretation Comments PROTIME (BEAKER) (test code = 14.7 seconds 11.9-14.2 H 759) INR (BEAKER) (test code = 370) 1.22 <=5.90 RECOMMENDED COUMADIN/WARFARIN INR THERAPY RANGESSTANDARD DOSE: 2.0 - 3.0 Includes: PROPHYLAXIS for venous thrombosis, systemic embolization; TREATMENT for venous thrombosis and/or pulmonary embolus.HIGH RISK: Target INR is 2.5-3.5 for patients with mechanical heart valves.CBC W/PLT COUNT & AUTO [id number] 15:34:14 Test Item Value Reference Range Interpretation Comments WHITE BLOOD CELL COUNT (BEAKER) 10.4 K/ L 3.5-10.5 (test code = 775) RED BLOOD CELL COUNT (BEAKER) 4.36 M/ L 3.93-5.22 (test code = 761) HEMOGLOBIN (BEAKER) (test code = 13.8 GM/DL 11.2-15.7 410) HEMATOCRIT (BEAKER) (test code = 43.0 % 34.1-44.9 411) MEAN CORPUSCULAR VOLUME (BEAKER) 99 fL 79-95 H (test code = 753) MEAN CORPUSCULAR HEMOGLOBIN 31.7 pg 25.6-32.2 (BEAKER) (test code = 751) MEAN CORPUSCULAR HEMOGLOBIN CONC 32.1 GM/DL 32.2-35.5 L (BEAKER) (test code = 752) RED CELL DISTRIBUTION WIDTH 13.6 % 11.7-14.4 (BEAKER) (test code = 412) PLATELET COUNT (BEAKER) (test 184 K/CU MM 150-450 code = 756) MEAN PLATELET VOLUME (BEAKER) 10.0 fL 9.4-12.3 (test code = 754) NUCLEATED RED BLOOD CELLS 0 /100 WBC 0-0 (BEAKER) (test code = 413) NEUTROPHILS RELATIVE PERCENT 90 % (BEAKER) (test code = 429) LYMPHOCYTES RELATIVE PERCENT 3 % (BEAKER) (test code = 430) MONOCYTES RELATIVE PERCENT 7 % (BEAKER) (test code = 431) EOSINOPHILS RELATIVE PERCENT 0 % (BEAKER) (test code = 432) BASOPHILS RELATIVE PERCENT 0 % (BEAKER) (test code = 437) NEUTROPHILS ABSOLUTE COUNT 9.35 K/ L 1.56-6.13 H (BEAKER) (test code = 670) LYMPHOCYTES ABSOLUTE COUNT 0.28 K/ L 1.18-3.74 L (BEAKER) (test code = 414) MONOCYTES ABSOLUTE COUNT (BEAKER) 0.75 K/ L 0.24-0.36 H (test code = 415) EOSINOPHILS ABSOLUTE COUNT 0.00 K/ L 0.04-0.36 L (BEAKER) (test code = 416) BASOPHILS ABSOLUTE COUNT (BEAKER) 0.01 K/ L 0.01-0.08 (test code = 417) IMMATURE GRANULOCYTES-RELATIVE 0.30 % 0.00-1.00 PERCENT (BEAKER) (test code = 2801) BLOOD GAS, [id number] 15:25:53 Test Item Value Reference Range Interpretation Comments PH ARTERIAL (BEAKER) (test code = 7.38 7.35-7.45 383) PCO2 ARTERIAL (BEAKER) (test code 36 mm Hg 35-45 = 384) PO2 ARTERIAL (BEAKER) (test code 149 mm Hg 80-90 H = 385) O2 SATURATION ARTERIAL (BEAKER) 98.9 % 96.0-97.0 H (test code = 386) HCO3 ARTERIAL (BEAKER) (test code 21 mmol/L 21-29 = 388) BASE EXCESS ARTERIAL (BEAKER) -3.8 mmol/L -2.0-3.0 L (test code = 387) PATIENT TEMPERATURE (BEAKER) 36.5 (test code = 1818) FIO2 (BEAKER) (test code = 1819) 60.0 CALCIUM, [id number] 15:25:42 Test Item Value Reference Range Interpretation Comments CALCIUM IONIZED (BEAKER) (test 1.15 mmol/L 1.12-1.27 code = 698) PH, BLOOD (BEAKER) (test code = 7.41 1810) Glucose-Stat [id number] 10:10:01 Test Item Value Reference Range Interpretation Comments Glucose (test code = 2345-7) 186 mg/dL 70-110 H Lab Interpretation (test code = Abnormal 67241-1) [facility] [id number] 10:10:01 Test Item Value Reference Range Interpretation Comments Potassium (test code = 2823-3) 3.8 meq/L 3.6-5.5 Lab Interpretation (test code = Normal 66537-3) [facility] [id number] 10:10:01 Test Item Value Reference Range Interpretation Comments Glucose (test code = 2345-7) 186 mg/dL 70-110 H Lab Interpretation (test code = Abnormal 72516-1) [facility] [id number] 10:10:01 Test Item Value Reference Range Interpretation Comments Potassium (test code = 2823-3) 3.8 meq/L 3.6-5.5 Lab Interpretation (test code = Normal 29183-6) [facility] [id number] 10:10:01 Test Item Value Reference Range Interpretation Comments GLUCOSE RANDOM (BEAKER) (test code 186 mg/dL 70-110 H = 652) POTASSIUM-STAT [id number] 10:10:01 Test Item Value Reference Range Interpretation Comments POTASSIUM (BEAKER) (test code = 3.8 meq/L 3.6-5.5 379) SARS-CoV2/RT-PCR (Asymptomatic ONLY)2023-02-17 10:06:15 Test Item Value Reference Interpretation Comments Range SARS-COV2/RT-PCR Negative Negative The SARS-Co V-2 (test code = target nucleic 13370-4) acids are not detected in thi s specimen. Negat jacqueline results do not preclude SARS-C oV-2 infection and should not be u sed as the sole bas is for patient management decisions. Nega tive results must be combined with clinical observations, patient history , and epidemiolog ical information. A false negative result may occu r if a specimen is improperly collected, transported or handled. This S ARS CoV-2 test is a rapid, real-beau e RT-PCR test intended for th e qualitative detection of nucleic acid fr om SARS-CoV-2 in a nasopharyngeal swab specimen colle abner from individual s suspected of COVID-19 by the ir healthcare provider. THERESA (test code = This test has been THERESA) authorized by FDA under an EUA for use by authorized laboratories. This test is only authorized for the duration of the declaration that circumstances exist justifying the authorization of emergency use of in vitro diagnostic tests for detection and/or diagnosis of COVID-19 under Section 564(b)(1) of the Federal Food, Drug and Cosmetic Act, 21 U.S.C. 360bbb-3(b)(1), unless the authorization is terminated or revoked sooner. Fact Sheet for Healthcare Providers: https://www.[employer]/Documents/Xp ert%20Xpress%20SAR S%20CoV-2/Fact%20S heets/302-3802%20S ARS-COV-2%20HEALTH CARE%20PROVIDERS%2 0FACT%20SHEET.pdf Fact Sheet for Healthcare Patients: https://www.[employer]/Documents/Xp ert%20Xpress%20SAR S%20CoV-2/Fact%20S heets/302-3801%20S ARS-COV-2%20PATIEN T%20FACT%20SHEET.p df Lab Interpretation Normal (test code = 86534-1) [facility]2023-02-17 10:06:15 Test Item Value Reference Interpretation Comments Range SARS-COV2/RT-PCR Negative Negative The SARS-Co V-2 (test code = target nucleic 64851-8) acids are not detected in thi s specimen. Negat jacqueline results do not preclude SARS-C oV-2 infection and should not be u sed as the sole bas is for patient management decisions. Nega tive results must be combined with clinical observations, patient history , and epidemiolog ical information. A false negative result may occu r if a specimen is improperly collected, transported or handled. This S ARS CoV-2 test is a rapid, real-beau e RT-PCR test intended for th e qualitative detection of nucleic acid fr om SARS-CoV-2 in a nasopharyngeal swab specimen collec abner from individual s suspected of COVID-19 by the ir healthcare provider. THERESA (test code = This test has been THERESA) authorized by FDA under an EUA for use by authorized laboratories. This test is only authorized for the duration of the declaration that circumstances exist justifying the authorization of emergency use of in vitro diagnostic tests for detection and/or diagnosis of COVID-19 under Section 564(b)(1) of the Federal Food, Drug and Cosmetic Act, 21 U.S.C. 360bbb-3(b)(1), unless the authorization is terminated or revoked sooner. Fact Sheet for Healthcare Providers: https://www.[employer]/Documents/Xp ert%20Xpress%20SAR S%20CoV-2/Fact%20S heets/302-3802%20S ARS-COV-2%20HEALTH CARE%20PROVIDERS%2 0FACT%20SHEET.pdf Fact Sheet for Healthcare Patients: https://www.[employer]/Documents/Xp ert%20Xpress%20SAR S%20CoV-2/Fact%20S heets/302-3801%20S ARS-COV-2%20PATIEN T%20FACT%20SHEET.p df Lab Interpretation Normal (test code = 16739-3) [facility]2023-02-17 10:06:15 Test Item Value Reference Range Interpretation Comments SARS-COV2/RT-PCR Negative Negative The SARS-Co V-2 target (test code = nucleic acids a re not 1342104) detected in thi s specimen. Negative result s do not preclude SARS-C oV-2 infection and s hould not be used as the nicola e basis for patient managem ent decisions. Nega tive results must be combine d with clinical observ ations, patient history , and epidemiological information. A false negativ e result may occur if a spec imen is improperly sharan ected, transported or handled. This SARS CoV-2 test is a rapid, real-time RT-PC R test intended for th e qualitative detection of nu cleic acid from SARS-CoV-2 in a nasopharyngeal swab specimen collected from individuals suspected of CO VID-19 by their healthcar e provider. This test has been authorized by FDA under an EUA for use by authorized laboratories. This test is only authorized for the duration of the declaration that circumstances exist justifying the authorization of emergency use of in vitro diagnostic tests for detection and/or diagnosis of COVID-19 under Section 564(b)(1) of the Federal Food, Drug and Cosmetic Act, 21 U.S.C. 360bbb-3(b)(1), unless the authorization is terminated or revoked sooner. Fact Sheet for Healthcare Providers: https://www.[employer]/Documents/Xpert%20Xpress%20SARS%20CoV-2/Fact%20Sheets/302-3802%45DRRA-MOE-2%20 HEALTHCARE%20PROVIDERS%20FACT%20SHEET.pdf Fact Sheet for Healthcare Patients: https://www.[employer]/Documents/Xpert%20Xp ress%20SARS%20CoV-2/Fact%20Sheets/3023801%73OOFI-KTA-5%20PATIENT%20FACT%20SHEET .pdfBlood gas, [id number] 08:21:00 Test Item Value Reference Range Interpretation Comments pH, Arterial (test code 7.45 7.35-7.45 = 2744-1) pCO2, Arterial (test 34 See_Comment L [Autom ated message] code = 2019-8) The system [employer] generated this result transmit abner reference range : 35 - 45 mm Hg. The reference range was not used to interpret this result as normal/abnormal . pO2, Arterial (test 178 See_Comment H [Automa abner message] code = 2703-7) The system [employer] generated this result transmit abner reference range : 80 - 90 mm Hg. The reference range was not used to interpret this result as normal/abnormal . O2 Sat, Arterial (test 99.3 % 96.0-97.0 H code = 2708-6) HCO3, Arterial (test 24 mmol/L 21-29 code = 1960-4) Base Excess, Arterial 0.0 mmol/L -2.0-3.0 (test code = 1925-7) Patient Temperature 36.0 (test code = 8310-5) FIO2 (test code = 1819) 100 Lab Interpretation Abnormal (test code = 83458-7) [facility] [id number] 08:21:00 Test Item Value Reference Range Interpretation Comments Hemoglobin (test code = 15.3 See_Comment H [Au tomated message] 888-7) The system [employer] generated this result transmitted ref erence range: 12.0 - 1 5.0 GM/DL. The refe rence range was not u sed to interpret this result as normal/abnor mal. Hematocrit (test code = 45.0 % 36.0-45.0 4544-3) Lab Interpretation (test Abnormal code = 03167-2) [facility] [id number] 08:21:00 Test Item Value Reference Range Interpretation Comments Hemoglobin (test code = 15.3 See_Comment H [Au tomated message] 718-7) The system [employer] generated this result transmitted ref erence range: 12.0 - 1 5.0 GM/DL. The refe rence range was not u sed to interpret this result as normal/abnor mal. Hematocrit (test code = 45.0 % 36.0-45.0 4544-3) Lab Interpretation (test Abnormal code = 61599-6) [facility], [id number] 08:21:00 Test Item Value Reference Range Interpretation Comments PH ARTERIAL (BEAKER) (test code = 7.45 7.35-7.45 383) PCO2 ARTERIAL (BEAKER) (test code 34 mm Hg 35-45 L = 384) PO2 ARTERIAL (BEAKER) (test code = 178 mm Hg 80-90 H 385) O2 SATURATION ARTERIAL (BEAKER) 99.3 % 96.0-97.0 H (test code = 386) HCO3 ARTERIAL (BEAKER) (test code 24 mmol/L 21-29 = 388) BASE EXCESS ARTERIAL (BEAKER) 0.0 mmol/L -2.0-3.0 (test code = 387) PATIENT TEMPERATURE (BEAKER) (test 36.0 code = 1818) FIO2 (BEAKER) (test code = 1819) 100.0 POTASSIUM-STAT [id number] 08:21:00 Test Item Value Reference Range Interpretation Comments POTASSIUM (BEAKER) (test code = 3.0 meq/L 3.6-5.5 L 379) HGB/HCT (H&H) - STAT [id number] 08:21:00 Test Item Value Reference Range Interpretation Comments HEMOGLOBIN (BEAKER) (test code = 15.3 GM/DL 12.0-15.0 H 410) HEMATOCRIT (BEAKER) (test code = 45.0 % 36.0-45.0 411) Sodium Na-Stat [id number] 08:20:54 Test Item Value Reference Range Interpretation Comments Sodium (test code = 2951-2) 141 meq/L 136-145 Lab Interpretation (test code = Normal 32993-9) [facility] [id number] 08:20:54 Test Item Value Reference Range Interpretation Comments Sodium (test code = 2951-2) 141 meq/L 136-145 Lab Interpretation (test code = Normal 88251-6) [facility] [id number] 08:20:54 Test Item Value Reference Range Interpretation Comments SODIUM (BEAKER) (test code = 381) 141 meq/L 136-145 GLUCOSE-STAT [id number] 08:20:54 Test Item Value Reference Range Interpretation Comments GLUCOSE RANDOM (BEAKER) (test code = 89 mg/dL 70-110 652) CT, CHEST, WITHOUT [id number] 20:28:00Unlisted Reason for Exam - Click Yes and Enter Reason Below->YesUnlisted Reason for Exam->Giant paraesophageal hernia, evaluate anatomy [facility] REC[facility] : 1945 Sex: FFINAL REPORT TECHNIQUE: CT scan of the chest WITHOUT intravenous contrast. Dose modulation, iterative reconstruction, and/or weight-based adjustment of the mA/kV was utilized to reduce the radiation dose to as low as reasonably achievable. INDICATION: Esophageal refluxGiant paraesophageal hernia, evaluate anatomy. COMPARISON: None. FINDINGS: ABSENCE OF INTRAVENOUS CONTRAST DECREASES SENSITIVITY FOR DETECTION OF FOCAL LESIONS AND VASCULAR PATHOLOGY. LINES/TUBES: None. LUNGS AND AIRWAYS: Mild bibasilar atelectasis. PLEURA: The pleural spaces are clear. HEART AND MEDIASTINUM: The visualized thyroid gland is normal. No significant mediastinal, hilar, or axillary lymphadenopathy. Mild ca lcification of the left anterior descending and left circumflex coronary arteries. Mild calcification of the aortic annulus. Mild calcification of the aortic valve. Mild calcification of the descendingthoracic aorta and arch branch vessels. A large hiatal hernia contains the entire stomach with organoaxial gastric volvulus and a portion of the transverse colon. SOFT TISSUES AND BONES: Kyphosis of the thoracic spine with moderate compression deformity of the inferior endplate of T6, moderate compression deformity the superior endplate of T7, near-complete loss of vertebral body height at T7, moderate disc height loss at T8, and near complete loss of vertebral body height at T9. Moderate compression deformities of the superior endplates of T11 and T12. UPPER ABDOMEN: Stones in the partially visualized gallbladder. IMPRESSION: 1.A large hiatal hernia contains the entire stomach with organoaxial gastric volvulus and a portion of the transverse colon. 2.Cholelithiasis 3.There are multiple compression deformities of the thoracic spine. A majority of these appear chronic and others are age-indeterminate. Please evaluate for point tenderness to exclude acute fractures. Signed: Mary Huber MDReport Verified Date/Time: 02/16/2023 20:28:36 COMPREHENSIVE METABOLIC [id number] 18:57:05 Test Item Value Reference Range Interpretation Comments TOTAL PROTEIN 6.5 gm/dL 6.0-8.3 (BEAKER) (test code = 770) ALBUMIN (BEAKER) 4.0 g/dL 3.5-5.0 (test code = 1145) ALKALINE 56 U/L 40-150 PHOSPHATASE (BEAKER) (test code = 346) BILIRUBIN TOTAL 0.5 mg/dL 0.2-1.2 (BEAKER) (test code = 377) SODIUM (BEAKER) 139 meq/L 136-145 (test code = 381) POTASSIUM (BEAKER) 4.0 meq/L 3.5-5.1 (test code = 379) CHLORIDE (BEAKER) 107 meq/L 98-107 (test code = 382) CO2 (BEAKER) (test 22 meq/L 22-29 code = 355) BLOOD UREA 11 mg/dL 7-21 NITROGEN (BEAKER) (test code = 354) CREATININE 0.75 mg/dL 0.57-1.25 (BEAKER) (test code = 358) GLUCOSE RANDOM 138 mg/dL 70-105 H (BEAKER) (test code = 652) CALCIUM (BEAKER) 9.3 mg/dL 8.4-10.2 (test code = 697) AST (SGOT) 15 U/L 5-34 (BEAKER) (test code = 353) ALT (SGPT) 12 U/L 6-55 (BEAKER) (test code = 347) EGFR (BEAKER) 82 Interpretatio n of eGFR (test code = 1092) mL/min/1.[address] age Description sq m Result G1 Tiff l or high >=90 G2 Mildly decreased 60-89 G3a Mild ly to moderately 45-5 9 G3b Moderately to s everely 30-44 G4 Severl y decreased 15-29 G5 Kidney failure <15Reported eGF R is based on the CKD-EPI 1 equation that d oes not use a race coefficientEsti mated GFR is not as accur ate as Creatinine Narda garcia in predicting glom erular filtration rate . Estimated GFR is not appl icable for dialysis patien ts Gaming Department Head ID - ADMINRAD, CHEST, 1 VIEW, NON [id number] 18:52:00Reason for exam:->pre-op hiatal hernia repair/gastropexyShould this be performed at the bedside?->YesCOMM[facility] REC[facility] : 1945 Sex: FFINAL REPORT TECHNIQUE: Frontal view of the chest. INDICATION: pre-op hiatal hernia repair/gastropexy. COMPARISON: None. FINDINGS: LINES/TUBES: None. LUNGS: Mild left basilar atelectasis. PLEURA: Eight is difficult if there is an air-fluid level within the stomach or there is a small left pleural effusion. HEART AND MEDIASTINUM: The cardiac silhouette is normal in size. SOFT TISSUES AN D BONES: There is a large hiatal hernia. IMPRESSION: Large hiatal hernia. It is difficult to tell there is a small left pleural effusion or air fluid level of stomach. No pneumothorax Signed: Mary Huber MDReport Verified Date/Time: 02/16/2023 18:52:25 [id number] 18:43:40 Test Item Value Reference Range Interpretation Comments PROTIME (BEAKER) (test code = 14.7 seconds 11.9-14.2 H 759) INR (BEAKER) (test code = 370) 1.23 <=5.90 PARTIAL THROMBOPLASTIN TIME 25.9 seconds 22.5-36.0 (BEAKER) (test code = 760) RECOMMENDED COUMADIN/WARFARIN INR THERAPY RANGESSTANDARD DOSE: 2.0 - 3.0 Includes: PROPHYLAXIS for venous thrombosis, systemic embolization; TREATMENT for venous thrombosis and/or pulmonary embolus.HIGH RISK: Target INR is 2.5-3.5 for patients with mechanical heart valves.CBC W/PLT COUNT & AUTO [id number] 18:36:31 Test Item Value Reference Range Interpretation Comments WHITE BLOOD CELL COUNT (BEAKER) 5.1 K/ L 3.5-10.5 (test code = 775) RED BLOOD CELL COUNT (BEAKER) 4.87 M/ L 3.93-5.22 (test code = 761) HEMOGLOBIN (BEAKER) (test code = 15.0 GM/DL 11.2-15.7 410) HEMATOCRIT (BEAKER) (test code = 46.7 % 34.1-44.9 H 411) MEAN CORPUSCULAR VOLUME (BEAKER) 96 fL 79-95 H (test code = 753) MEAN CORPUSCULAR HEMOGLOBIN 30.8 pg 25.6-32.2 (BEAKER) (test code = 751) MEAN CORPUSCULAR HEMOGLOBIN CONC 32.1 GM/DL 32.2-35.5 L (BEAKER) (test code = 752) RED CELL DISTRIBUTION WIDTH 13.3 % 11.7-14.4 (BEAKER) (test code = 412) PLATELET COUNT (BEAKER) (test 239 K/CU MM 150-450 code = 756) MEAN PLATELET VOLUME (BEAKER) 10.2 fL 9.4-12.3 (test code = 754) NUCLEATED RED BLOOD CELLS 0 /100 WBC 0-0 (BEAKER) (test code = 413) NEUTROPHILS RELATIVE PERCENT 78 % (BEAKER) (test code = 429) LYMPHOCYTES RELATIVE PERCENT 14 % (BEAKER) (test code = 430) MONOCYTES RELATIVE PERCENT 7 % (BEAKER) (test code = 431) EOSINOPHILS RELATIVE PERCENT 0 % (BEAKER) (test code = 432) BASOPHILS RELATIVE PERCENT 0 % (BEAKER) (test code = 437) NEUTROPHILS ABSOLUTE COUNT 3.97 K/ L 1.56-6.13 (BEAKER) (test code = 670) LYMPHOCYTES ABSOLUTE COUNT 0.72 K/ L 1.18-3.74 L (BEAKER) (test code = 414) MONOCYTES ABSOLUTE COUNT (BEAKER) 0.34 K/ L 0.24-0.36 (test code = 415) EOSINOPHILS ABSOLUTE COUNT 0.00 K/ L 0.04-0.36 L (BEAKER) (test code = 416) BASOPHILS ABSOLUTE COUNT (BEAKER) 0.01 K/ L 0.01-0.08 (test code = 417) IMMATURE GRANULOCYTES-RELATIVE 0.60 % 0.00-1.00 PERCENT (BEAKER) (test code = 2801)
[2023-03-04 12:07] VITALS: BMI 24.2
[2023-03-04] MEDS ORDERED: CALCIUM CARBONATE 500 MG TAB PO PRN (12:26)
[2023-03-04] MEDS ORDERED: LEVALBUTEROL 1.25 MG/3 ML NEB NEB PRN (12:27)
[2023-03-04] MEDS ORDERED: ONDANSETRON 4 MG (ODT) TAB PO PRN (12:32)
[2023-03-04] MEDS ORDERED: HYDROCODONE/APAP 5/325 MG TAB PO PRN (12:34)
[2023-03-04] MEDS: MAGNES/ALUMIN/SIMET 30ML UCUP PO PRN (15:36)
[2023-03-04] MEDS: SUCRALFATE 1 GM TABLET PO SCH (16:26)
[2023-03-04 16:48] LABS: Specific Gravity 1.007 (1.005-1.030); Urine Bacteria None Seen /HPF (<20); Urine Bilirubin NEGATIVE (Negative); Urine Blood 1+ (Negative); Urine Clarity Clear (Clear); Urine Color Colorless (Yellow); Urine Glucose NEGATIVE (Negative); Urine Protein NEGATIVE (Negative); Urine Urobilinogen Normal (Normal); Urine pH 7.5 (5.0-7.0)
[2023-03-04] MEDS ORDERED: AZITHROMYCIN 200 MG/5ML ORAL SUSP PO SCH (17:00)
[2023-03-04] MEDS: ERYTHROMYCIN 200 MG/5ML 100ML PO SCH (17:22)
[2023-03-04] MEDS ORDERED: MELATONIN 3 MG TABLET PO PRN (17:31)
[2023-03-04] MEDS: GABAPENTIN 100 MG CAP PO SCH (20:13)
[2023-03-04] MEDS: FAMOTIDINE 20 MG TAB PO SCH (20:13)
[2023-03-04] MEDS: APIXABAN 2.5 MG TABLET PO SCH (20:13)
[2023-03-04] MEDS: ONDANSETRON 4 MG (ODT) TAB PO PRN ×2 (20:13→23:44)
--- NOTE | 2023-03-04 22:56 | HP ---
Date of Admission: 03/04/2023 Time Of Service: 6:30 p.m. Chief Complaint: Nausea and abdominal pain. History Of Present Illness: Ms. Recio is a 77-year-old right-handed patient with osteopor osis, rheumatoid arthritis, multilevel compression fractures in the spine, endometriosis, and hyperte nsion who came to [facility] on 02/15/2023 with 1 month worth of progressive shortness of breath, abdomin al discomfort, and pain. Workup evaluated a significant hernia containing the majority of her stomac h and a segment of the transverse colon. In addition, she has acute respiratory failure. On 02/17 he was surgically treated for the hernia, which was reduced. However, following surgery she had diff icult extubation and could not be extubated in the operating room because of the need for continued b reathing support and she was sent to the ICU intubated. Eventually, she was extubated and was put on oxygen via nasal cannula; however, once oxygen via nasal cannula was removed, oxygen saturation drop ped below 90%. She also developed significant nausea requiring schedule of Zofran and lung evaluatio n identified bilateral pleural effusions, which required a left chest tube placed on February 23. Chest t ube has since been removed. Due to the time the patient has been hospitalized, she has become signif icantly debilitated and does require oxygen via nasal cannula to maintain oxygen saturation above 90, and she is now not able to safely perform her activities of daily living to transfer and to mobilize . Therefore, she is now admitted to the inpatient rehabilitation unit for physical, occupational, an d speech therapy as needed. Past Medical History: As noted. Family History: Noncontributory. Allergies: CODEINE AND MORPHINE. Social History: No alcohol, tobacco, or IV drug use. The patient lives at home with her . Medications: [place] 5/325 every 4 hours as needed, Maalox 30 mL every 6 hours, Eliquis 2.5 mg twice d aily, calcium and Os-Rod 500 mg 3 times daily, vitamin D 4000 units daily, erythromycin 250 mg 3 time s daily, Pepcid 20 mg twice daily, folic acid 1 mg daily, gabapentin 100 mg twice daily, Xopenex 1.25 mg nebulized every 6 hours as needed, lidocaine patch to apply 1 topically daily, melatonin 3 at bed time, Zofran 4 mg every 4 hours as needed, Protonix 40 mg daily, Deltasone 10 mg daily, ramipril 10 m g daily, and sucralfate 1 g 3 times daily. X-ray/imaging: Chest x-ray on the showed bilateral perihilar and bibasilar pleural parenchymal opacities being unchanged without pneumothorax. Anterior-posterior view of the chest dated 03/02 jennifer ws bilateral pleural effusions and bibasilar subsegmental atelectasis. On 02/[address] scan show no evidence of acute pulmonary thromboembolism. No thoracic aortic aneurysm or dissecti on. There is moderate-size bilateral pleural effusion. On 02/17, EKG normal sinus rhythm, nonspecif ic T-waves. Review of Systems: She does report significant nausea and difficulty keeping food down with vomiting. Mild abdominal pa in. No rash. No genitourinary complaints. No significant myalgias or arthralgias. No psychiatric complaints. No other positives other than mentioned above on systems review. Physical Examination: Vital Signs: Blood pressure 170/80, pulse 86, respiratory rate 16, temperature 97.6, and oxygen satu ration 93%. General: Ms. Recio is lying in bed. She is tilted to the left side mentioning the nausea and since she has had the hernia, nausea has been ongoing. She has Zofran now put at every 4 hours and she benton s GI medications on board. She is having normal bowel movements. Chest: Clear. Abdomen: Nondistended. Extremities: No significant cyanosis or edema in the extremities. Neurologic: She is alert and oriented to situation, place, and person. Follows commands appropriate ly. She has no focal deficits, just diffuse weakness in the upper and lower extremities with normal tone. Current Level Of Functioning: She was able to ambulate 100 feet with moderate assistance with a roll ing walker, transfer from bed to chair to toilet with moderate assistance, sit to stand with contact guard assistance, lying to sitting with contact guard assistance, lower body dressing with moderate a ssistance, upper body dressing with contact guard assistance. Eating is at supervision. Oral hygien e at supervision. Toileting, again with moderate assistance. Rehabilitation And Medical Assessment And Plan: Ms. Recio is admitted to the inpatient rehabilitati on unit with a rehabilitation impairment category 15, which is pulmonary. Impairment group code 10.9 , other pulmonary and etiologic diagnosis of acute respiratory insufficiency. Active comorbids are d ecrease in mobility, decrease in physical functioning, hypertension, osteoporosis, rheumatoid arthrit is multilevel compression fractures, acute anemia, and recent hernia repair. Plan: 1.She will have physical and occupational and if need be, speech therapy for 3.5 hours, 5 of 7 days. 2.We will continue Carafate for her recently repaired hernia and GI issues with nausea along with Zo aida 4 mg every 4 hours. 3.Continue Protonix for reflux. 4.Continue melatonin for insomnia and ramipril for hypertension. 5.Continue gabapentin for neuropathic pain. 6.Continue vitamin D along with calcium and folic acid for muscle spasms and low vitamin D. 7.Continue Eliquis 2.5 mg twice daily for DVT prophylaxis. Impact Of Comorbids: Currently due to her significant nausea, it is difficult for her to maintain fo od. She will be put on around the clock Zofran with proton pump inhibitor. May consider GI motility medication and may involve the Gastrointestinal Services as needed. She also has chronic compressio n fractures and back pain with rheumatoid arthritis related pain, may adjust gabapentin as appropriat e. Rehab Specific Plan: 1.Again she will have 3.5 hours 5 of 7 days of physical, occupational, and speech therapy. 2.She will have long term for addressing her medical needs. 3.She will have speech therapy as appropriate for cognitive issues as well as for swallowing and imp roving her ability to maintain her airway safely. 4.Ms. Recio has a good understanding of the reason she is admitted to the inpatient rehabilitation unit for a multidisciplinary approach to her rehabilitation. She has a potential to make good improv ement as she is in the rehabilitation unit. She may require additional services such as the Cardiova scular Service, Pulmonary Service, Nutrition Service, and Wound Care for the abdominal wound. They w ill be consulted as appropriate. Given her complex medical condition and risk of further complicatio ns, rehabilitation cannot be safely or effectively provided at a lower level of care such as long term. Barriers To Discharge: Given her recent hernia repair surgery and significant nausea and vomiting, s he may be at risk of worsening postoperative course, which was already complicated by difficult extub ation. If she does a lot of vomiting, there may be GI related postsurgical changes such as extra ble eding or disruption of tissue integrity. She will have the Zofran again as scheduled to minimize her nausea. Estimated Length Of Stay: About 10 to 14 days. Disposition: Home with family. Prognosis: Fair. Rehabilitation Goals: 1.Become independent with upper and lower body dressing. 2.Independent with transferring from bed to wheelchair to toilet and shower. 3.To perform a shower and toileting independently. 4.To ambulate with a rolling walker and Rollator covering 250 feet independently. 5.Going up and down 10 steps independently. 6.Performing cognitive functioning independently. I acknowledge, I personally performed a full physical examination on Ms. Estrella Recio, no later than 24 hours after admission to the inpatient rehabilitation unit and determined that she is able to maren erate the above course of treatment at an intensive level for a reasonable period of time. A andrew d individualized plan of care for her will be completed by hospital day 4 based on the preadmission s creen, history and physical, and therapy evaluations. MARCIA Voice ID: [id number]
[2023-03-05] MEDS: MAGNES/ALUMIN/SIMET 30ML UCUP PO PRN ×2 (03:11→17:04)
[2023-03-05] MEDS: PANTOPRAZOLE 40MG TABLET PO SCH (05:45)
[2023-03-05] MEDS: SUCRALFATE 1 GM TABLET PO SCH ×5 (06:51→16:19)
[2023-03-05 07:13] LABS: Absolute Lymphocytes (CBC) 0.5 K/uL (0.7-4.9); Hematocrit 33.3 % (36.0-45.0); MCV 94.7 fL (80-100); MPV 7.2 fL (7.6-11.3); RBC Red Blood Cell Count 3.51 M/uL (3.86-4.86)
[2023-03-05] MEDS: ONDANSETRON 4 MG (ODT) TAB PO PRN ×2 (07:13→20:14)
[2023-03-05 07:29] LABS: Albumin 2.4 g/dL (3.4-5.0); Magnesium 2.1 mg/dL (1.6-2.4); Potassium 3.6 mEq/L (3.5-5.1); Prealbumin 10.5 mg/dL (20-40)
[2023-03-05] MEDS: LIDOCAINE 4% PATCH TOP SCH (07:33)
[2023-03-05] MEDS: VITAMIN D 1000 UNIT TAB PO SCH (07:34)
[2023-03-05] MEDS: predniSONE 10 MG TAB PO SCH (07:34)
[2023-03-05] MEDS: FAMOTIDINE 20 MG TAB PO SCH ×2 (07:34→20:14)
[2023-03-05] MEDS: FOLIC ACID 1 MG TABLET PO SCH (07:34)
[2023-03-05] MEDS: ERYTHROMYCIN 200 MG/5ML 100ML PO SCH ×3 (07:35→16:50)
[2023-03-05] MEDS: GABAPENTIN 100 MG CAP PO SCH ×2 (07:35→20:14)
[2023-03-05] MEDS: APIXABAN 2.5 MG TABLET PO SCH ×2 (07:35→20:14)
[2023-03-05] MEDS: ramipriL 5 MG CAP PO SCH (09:01)
[2023-03-05 09:51] LABS: Blood Morphology Comment NOT SEEN (NOT SEEN); Platelet Estimate ADEQ
[2023-03-05] MEDS ORDERED: SODIUM CHLORIDE 1 GM TAB PO ONE (10:35)
[2023-03-05] MEDS ORDERED: LOPERAMIDE HCL 2 MG CAPSULE PO PRN (17:02)
[2023-03-06] MEDS: PANTOPRAZOLE 40MG TABLET PO SCH (05:28)
[2023-03-06] MEDS: ONDANSETRON 4 MG (ODT) TAB PO PRN ×2 (07:13→20:06)
[2023-03-06] MEDS: VITAMIN D 1000 UNIT TAB PO SCH (07:14)
[2023-03-06] MEDS: ramipriL 5 MG CAP PO SCH (07:14)
[2023-03-06] MEDS: APIXABAN 2.5 MG TABLET PO SCH ×2 (07:14→20:06)
[2023-03-06] MEDS: FOLIC ACID 1 MG TABLET PO SCH (07:15)
[2023-03-06] MEDS: GABAPENTIN 100 MG CAP PO SCH ×2 (07:15→20:06)
[2023-03-06] MEDS: SODIUM CHLORIDE 1 GM TAB PO SCH (07:15)
[2023-03-06] MEDS: FAMOTIDINE 20 MG TAB PO SCH ×2 (07:15→20:06)
[2023-03-06] MEDS: SUCRALFATE 1 GM TABLET PO SCH ×3 (07:15→15:58)
[2023-03-06] MEDS: ERYTHROMYCIN 200 MG/5ML 100ML PO SCH ×3 (07:16→16:54)
[2023-03-06] MEDS: predniSONE 10 MG TAB PO SCH (07:16)
[2023-03-06] MEDS: LIDOCAINE 4% PATCH TOP SCH (09:54)
[2023-03-07] MEDS: PANTOPRAZOLE 40MG TABLET PO SCH (06:16)
[2023-03-07] MEDS: ONDANSETRON 4 MG (ODT) TAB PO PRN ×2 (06:46→16:46)
[2023-03-07] MEDS: SUCRALFATE 1 GM TABLET PO SCH ×3 (07:28→16:30)
[2023-03-07] MEDS: LIDOCAINE 4% PATCH TOP SCH (07:28)
[2023-03-07] MEDS: FAMOTIDINE 20 MG TAB PO SCH ×2 (07:29→20:08)
[2023-03-07] MEDS: VITAMIN D 1000 UNIT TAB PO SCH (07:29)
[2023-03-07] MEDS: ramipriL 5 MG CAP PO SCH (07:29)
[2023-03-07] MEDS: FOLIC ACID 1 MG TABLET PO SCH (07:30)
[2023-03-07] MEDS: CRANBERRY FRUIT EXTRACT 200 MG CAP PO SCH ×2 (07:30→20:07)
[2023-03-07] MEDS: SODIUM CHLORIDE 1 GM TAB PO SCH (07:30)
[2023-03-07] MEDS: APIXABAN 2.5 MG TABLET PO SCH ×2 (07:30→20:07)
[2023-03-07] MEDS: predniSONE 10 MG TAB PO SCH (07:30)
[2023-03-07] MEDS: GABAPENTIN 100 MG CAP PO SCH ×2 (07:31→20:07)
[2023-03-07] MEDS: ERYTHROMYCIN 200 MG/5ML 100ML PO SCH ×3 (07:32→16:46)
[2023-03-07] MEDS ORDERED: ENSURE ENLIVE 237 ML CAN PO SCH (20:00)
--- NOTE | 2023-03-07 22:10 | PN ---
Date of Progress Note: 03/07/2023 Time Of Service: 9 a.m. Subjective: Ms. Recio is resting well. She denies any significant problems. She is actually getti ng ready to do physical therapy with the therapist. She reports some discomfort in her chest where s he had some GE reflux and nausea, but that is improving. Review of Systems: Mild nausea. No vomiting. No rash. No headache. No psychiatric issues. No dermatological issues. No other positives on the systems review. Objective: Vital Signs: Blood pressure 142/74, pulse 80, respiratory rate 16, temperature 98.3, oxy gen saturation 95%. General: Ms. Recio is ambulating with the walker with the therapist. She is in no acute distress. HEENT: She is normocephalic, atraumatic. Sclerae anicteric. Oropharynx is moist. Neck: Supple. Chest: Clear. Heart: Regular. Extremities: Show no significant edema or cyanosis. Laboratory Studies: White blood cell count 6.0, hemoglobin 11, platelets 594. Chemistry: Sodium 13 1, potassium 3.6, chloride 101, carbon dioxide 22, BUN 9, creatinine 0.4, glucose 87, calcium 8.1, ma gnesium 2.1, prealbumin 10.5, albumin 2.4. Her urinalysis shows pH 7.5, ketones 1+, blood 1+, 5 to 1 0 red blood cells, otherwise unremarkable. X-ray/imaging: No new x-ray imaging. Medications: [place] 5/325 every 4 hours as needed, simethicone 30 mL every 6 hours as needed, Eliquis 2.5 mg twice daily, Os-Rod 500 mg 3 times daily, vitamin D 4000 units daily, erythromycin 250 mg 3 t imes daily, Pepcid 20 mg twice daily, folic acid 1 mg daily, gabapentin 100 mg twice daily, Xopenex _ mg nebulizer every 6 hours as needed, lidocaine patch 1 patch topically daily, Imodium 4 mg every 6 hours as needed, melatonin 3 mg at bedtime, Ensure Enlive 237 mL twice daily, Zofran 4 mg ev zana 4 hours as needed, Altace 10 mg daily, prednisone 10 mg daily, sodium chloride tablets 1 g daily, sucralfate 1 g 3 times daily. Current Functional Status: Today she ambulated 250 feet twice with contact guard assistance using a rolling walker. She does not typically use an assistive device at home and training will graduate to without an assistive device in the next 2-3 days. With her occupational therapy, she did perform 20 sit to stands with 1 rest break due to fatigue. With speech therapy, she was placed to remain on a soft diet until she sees a surgeon to follow up for her GI related issues of dysphagia. Her cognitiv e issues are non-existent and she will be discharged from speech therapy as she is doing otherwise we ll. Progress Towards Rehabilitation Goals: Ms. Recio is making great progress towards her goals of inde pendent ambulation of over 250 feet and she will work on going up and down 10 steps with modified ind ependence. She is already doing well with her speech and her swallowing is at a baseline and will be further evaluated after discharge and her medical conditions are multiple, but managed. Assessment And Plan: Ms. Recio is a 77-year-old patient in the rehabilitation unit following a farhad ia repair. She has acute respiratory insufficiency, which is a pulmonary impairment, decreased mobil ity, hypertension, osteoporosis, rheumatoid arthritis, multiple compression fractures, chronic anemia superimposed on acute anemia, and a recent hernia repair. Plan: 1.She will continue with physical and occupational therapy for 3 hours, 5 of 7 days. 2.She will continue with Carafate, continue with Protonix, melatonin, gabapentin, vitamin D, and Zaina ludmila. Comorbids That Continue To Impact The Rehabilitation Process: She is doing well now or at least bett er in terms of her GI issues of nausea and difficulty maintaining food. Zofran is helping. However, she possibly has significant inflammatory changes in the esophagus, which may make swallowing or lama d consistency foods difficult. As a result, she is actually placed on soft mechanical diet by speech pathologist and she can drink thin liquids. She will be followed as appropriate for her swallowing issues. LB/MODL Voice ID: [id number] Report ID: [id number]
[2023-03-08] MEDS: PANTOPRAZOLE 40MG TABLET PO SCH (05:47)
[2023-03-08] MEDS: SUCRALFATE 1 GM TABLET PO SCH ×3 (06:36→16:09)
[2023-03-08] MEDS: FOLIC ACID 1 MG TABLET PO SCH (08:48)
[2023-03-08] MEDS: FAMOTIDINE 20 MG TAB PO SCH ×2 (08:48→19:49)
[2023-03-08] MEDS: VITAMIN D 1000 UNIT TAB PO SCH (08:49)
[2023-03-08] MEDS: APIXABAN 2.5 MG TABLET PO SCH ×2 (08:49→19:49)
[2023-03-08] MEDS: CRANBERRY FRUIT EXTRACT 200 MG CAP PO SCH ×2 (08:54→19:49)
[2023-03-08] MEDS: SODIUM CHLORIDE 1 GM TAB PO SCH (08:54)
[2023-03-08] MEDS: GABAPENTIN 100 MG CAP PO SCH ×3 (08:54→20:00)
[2023-03-08] MEDS: predniSONE 10 MG TAB PO SCH (08:54)
[2023-03-08] MEDS: ERYTHROMYCIN 200 MG/5ML 100ML PO SCH ×3 (09:01→17:08)
[2023-03-08] MEDS: ENSURE CLEAR 200 ML CAN PO SCH ×2 (09:01→19:49)
[2023-03-08] MEDS: LIDOCAINE 4% PATCH TOP SCH (09:26)
[2023-03-08] MEDS: ramipriL 5 MG CAP PO SCH ×3 (12:06→20:00)
--- NOTE | 2023-03-08 23:37 | PN ---
Date of Progress Note: 03/08/2023 [id number] Progress Note Time Of Service: 1:30 p.m. Subjective: Ms. Recio is resting in bed. She reports less pain in the chest and thoracic area wher e there is lot of reflux. She had responded well to her current regimen and has no new complaints th ere. Review of Systems: No fevers, chills, nausea, or vomiting. No myalgias or arthralgias. No significant rashes or other issues. Physical Examination: Vital Signs: Blood pressure 129/68, pulse 78, respiratory rate 16, temperature 97.8, and oxygen satu ration 93%. General: Ms. Recio is resting comfortably. She is in no distress. HEENT: She is normocephalic, atraumatic. Sclerae anicteric. Oropharynx is moist. Neck: Supple. Chest: Clear. Heart: Regular. Extremities: No significant edema or cyanosis. She had diffuse weakness of upper and lower extremit ies. Laboratory Studies: No new laboratory studies. X-ray/imaging: No new x-rays or imaging. Medications: Her medications have been reviewed and remain unchanged. Current Functional Status: Ms. Recio is able to do stand and pivot transfers with contact guard ass istance using a rolling walker. She ambulated 500 feet twice, 600 feet once, 350 feet twice with a r olling walker and contact guard assistance using verbal cues. She ascended and descended 15 steps wi th bilateral handrails independently. With occupational therapy, she ambulated 120 feet with no assi stive device to supervisor opening and picking 10 objects on the floor while reaching to improve her balance and ADLs. Progress Towards Rehabilitation Goals: Ms. Recio is making excellent progress towards her goals of becoming independent with ambulation over 500 feet, up and down 15 steps with independence, and perfo rming all of her activities of daily living with independence. Assessment: Ms. Recio is a 77-year-old patient in the rehabilitation unit following hernia repair a nd respiratory insufficiency and pulmonary impairment, which is improving. She has improving mobilit y as well. Comorbids include osteoporosis, hypertension, rheumatoid arthritis, multiple compression fractures, and chronic anemia. Plan: 1.Continue with physical and occupational therapy 3 hours a day, 5 of 7 days. 2.Continue with all of her comorbid condition medications as outlined. Comorbids That Continue To Impact Rehabilitation Process: Currently, she has much improved nausea an d is swallowing better, but still has some esophageal pain. She does have some sundowning at night a s the nurses report that but she is reassured and can do much better. TOM/PAOLA Voice ID: [id number] Report ID: [id number]
[2023-03-09] MEDS: PANTOPRAZOLE 40MG TABLET PO SCH (05:25)
[2023-03-09] MEDS: SUCRALFATE 1 GM TABLET PO SCH ×3 (07:05→15:50)
[2023-03-09] MEDS: GABAPENTIN 100 MG CAP PO SCH (08:00)
[2023-03-09] MEDS: VITAMIN D 1000 UNIT TAB PO SCH (08:57)
[2023-03-09] MEDS: ramipriL 5 MG CAP PO SCH ×2 (08:58→20:24)
[2023-03-09] MEDS: FAMOTIDINE 20 MG TAB PO SCH ×2 (08:58→20:24)
[2023-03-09] MEDS: CRANBERRY FRUIT EXTRACT 200 MG CAP PO SCH ×2 (08:58→20:24)
[2023-03-09] MEDS: APIXABAN 2.5 MG TABLET PO SCH ×2 (08:59→20:24)
[2023-03-09] MEDS: predniSONE 10 MG TAB PO SCH (08:59)
[2023-03-09] MEDS: FOLIC ACID 1 MG TABLET PO SCH (08:59)
[2023-03-09] MEDS: SODIUM CHLORIDE 1 GM TAB PO SCH (09:00)
[2023-03-09] MEDS: ERYTHROMYCIN 200 MG/5ML 100ML PO SCH ×3 (09:03→16:50)
[2023-03-09] MEDS: ENSURE CLEAR 200 ML CAN PO SCH ×2 (09:04→20:24)
[2023-03-09] MEDS: LIDOCAINE 4% PATCH TOP SCH (09:07)
[2023-03-09 12:08] LABS: Absolute Lymphocytes (CBC) 0.7 K/uL (0.7-4.9); Lymphocytes % 10.6 % (15.3-44.8); MCV 93.9 fL (80-100); MPV 7.4 fL (7.6-11.3); RBC Red Blood Cell Count 3.83 M/uL (3.86-4.86)
[2023-03-09 16:10] LABS: Albumin 2.6 g/dL (3.4-5.0); Potassium 3.3 mEq/L (3.5-5.1); Prealbumin 15.4 mg/dL (20-40)
[2023-03-09] MEDS ORDERED: POTASSIUM CL SA 10 MEQ TAB PO ONE (19:10)
--- NOTE | 2023-03-09 22:10 | PN ---
Date of Progress Note: 03/09/2023 Time Of Service: 1:00 p.m. Subjective: Ms. Recio is resting in bed. She denies any significant changes such as more pain. Sh e does have the ongoing issue with some reflux type symptoms in the upper chest and throat region. Review of Systems: No significant changes such as fevers, chills, nausea, or vomiting. No other positives on systems re view. Physical Examination: Vital Signs: Blood pressure 145/81, pulse 67, respiratory rate of 16, temperature 97.2, oxygen satur ation 95%. General: Ms. Recio is resting comfortably. She is in no significant distress. HEENT: She is normocephalic, atraumatic. Sclerae anicteric. Oropharynx is pink and moist. Neck: Supple. Chest: Clear. Heart: Regular. She does have some abdominal discomfort at the area of the hernia repair. Laboratory Studies: White blood cell count 6.8, hemoglobin 12, neutrophils 78.3. Sodium 135, potass ium 3.3, creatinine 0.49. Prealbumin 15.4, albumin 2.6. X-ray/imaging: None. Medications: Again reviewed and remain unchanged. Current Functional Status: Today, she ambulated 500 feet once, another 600 feet twice with a rolling walker and standby assistance. She ambulated with a single prong cane 250 feet twice with contact g uard assistance and verbal cues. She ascended and descended 15 steps with bilateral handrails indepe ndently. With her occupational therapy, she performed ADLs and transferred safely with supervision. Progress Towards Rehabilitation Goals: Ms. Recio is making excellent progress towards her goals of becoming independent with upper body dressing, transferring, toileting, showering, and ambulating ove r 500 feet with independence and up and down 10 steps with independence. Assessment: Ms. Recio is a 77-year-old patient in the rehabilitation unit with hernia repair. She has respiratory insufficiency, hypertension, osteoporosis with arthritis, chronic anemia, and multipl e vertebral compression fractures. Plan: 1.Continue with physical, occupational, and speech therapy 3.5 hours, 5 of 7 days. 2.Continue with all other comorbid condition medications, which are listed above. Comorbid Conditions That Continue To Impact The Rehabilitation Process: She does have some ongoing n ausea, but it is less and she is able to eat, although she is only drinking 1 or 2 Ensures a day. Heike go is encouraged to drink at least 3 in the day. She has some mild sundowning, but that has done much better over the last few days. TOM/PAOLA Voice ID: [id number] Report ID: [id number]
[2023-03-10] MEDS: PANTOPRAZOLE 40MG TABLET PO SCH (05:27)
[2023-03-10] MEDS: SUCRALFATE 1 GM TABLET PO SCH ×3 (07:02→16:30)
[2023-03-10] MEDS: ramipriL 5 MG CAP PO SCH ×2 (07:12→19:55)
[2023-03-10] MEDS: VITAMIN D 1000 UNIT TAB PO SCH (08:45)
[2023-03-10] MEDS: LIDOCAINE 4% PATCH TOP SCH (08:45)
[2023-03-10] MEDS: FAMOTIDINE 20 MG TAB PO SCH ×2 (08:46→19:56)
[2023-03-10] MEDS: SODIUM CHLORIDE 1 GM TAB PO SCH (08:46)
[2023-03-10] MEDS: CRANBERRY FRUIT EXTRACT 200 MG CAP PO SCH ×2 (08:46→19:55)
[2023-03-10] MEDS: APIXABAN 2.5 MG TABLET PO SCH ×2 (08:46→19:55)
[2023-03-10] MEDS: POTASSIUM CL SA 10 MEQ TAB PO SCH (08:46)
[2023-03-10] MEDS: FOLIC ACID 1 MG TABLET PO SCH (08:47)
[2023-03-10] MEDS: predniSONE 10 MG TAB PO SCH (08:47)
[2023-03-10] MEDS: ERYTHROMYCIN 200 MG/5ML 100ML PO SCH ×3 (08:50→16:53)
[2023-03-10] MEDS: ENSURE CLEAR 200 ML CAN PO SCH ×2 (08:54→19:55)
--- NOTE | 2023-03-10 08:54 | P.RH.PN ---
Estimated Length of Stay: 10 Expected Discharge Date: 03/13/23 Discharge Disposition Plan: Home Family Support: Yes Detention Goal: Mobility, Transfers, Self Care Vital Signs: Last Vital Signs Temp 97.5 F 03/10/23 07:17 Pulse 76 03/10/23 07:17 Resp 17 03/10/23 07:17 BP 176/84 H 03/10/23 07:17 Pulse Ox 95 03/10/23 07:17 Laboratory: Laboratory Last Values WBC 6.80 thou/uL (4.3-10.9) 03/09/23 11:54 RBC 3.83 M/uL (3.86-4.86) L 03/09/23 11:54 Hgb 12.0 g/dL (12.0-15.0) 03/09/23 11:54 Hct 36.0 % (36.0-45.0) 03/09/23 11:54 MCV 93.9 fL (80-100) 03/09/23 11:54 MCH 31.3 pg (27.0-35.0) 03/09/23 11:54 MCHC 33.3 g/dL (32.0-36.0) 03/09/23 11:54 RDW 14.5 % (12.1-15.2) 03/09/23 11:54 Plt Count 381 thou/uL (152-406) 03/09/23 11:54 MPV 7.4 fL (7.6-11.3) L 03/09/23 11:54 Neutrophils % 78.3 % (41.7-73.7) H 03/09/23 11:54 Lymphocytes % 10.6 % (15.3-44.8) L 03/09/23 11:54 Monocytes % 10.2 % (3.3-12.3) 03/09/23 11:54 Eosinophils % 0.2 % (0-4.4) 03/09/23 11:54 Basophils % 0.7 % (0-1.3) 03/09/23 11:54 Absolute Neutrophils 5.4 K/uL (1.8-8.0) 03/09/23 11:54 Segmented Neutrophils 64 % (40-80) 03/05/23 06:20 Band Neutrophils 9 % (0-1) H 03/05/23 06:20 Absolute Lymphocytes 0.7 K/uL (0.7-4.9) 03/09/23 11:54 Lymphocytes 19 % (15-42) 03/05/23 06:20 Monocytes 7 % (0-10) 03/05/23 06:20 Absolute Monocytes 0.7 K/uL (0.1-1.3) 03/09/23 11:54 Absolute Eosinophils 0.0 K/uL (0-0.5) 03/09/23 11:54 Basophils 1 % (0-1) 03/05/23 06:20 Absolute Basophils 0.0 K/uL (0-0.5) 03/09/23 11:54 Platelet Estimate Adeq 03/05/23 06:20 Morphology Comment Not seen (NOT SEEN) 03/05/23 06:20 Sodium 135 mEq/L (136-145) L 03/09/23 14:51 Potassium 3.3 mEq/L (3.5-5.1) L 03/09/23 14:51 Chloride 107 mEq/L (98-107) 03/09/23 14:51 Carbon Dioxide 24 mEq/L (21-32) 03/09/23 14:51 Anion Gap 7.3 mEq/L (5.0-15.0) 03/09/23 14:51 BUN 9 mg/dL (7-18) 03/09/23 14:51 Creatinine 0.49 mg/dL (0.55-1.02) L 03/09/23 14:51 Est GFR (CKD-EPI) 97 ml/min (=/>90) 03/09/23 14:51 Glucose 117 mg/dL (74-106) H 03/09/23 14:51 Calcium 8.4 mg/dL (8.5-10.1) L 03/09/23 14:51 Magnesium 2.0 mg/dL (1.6-2.4) 03/09/23 14:51 Albumin 2.6 g/dL (3.4-5.0) L 03/09/23 14:51 Prealbumin 15.4 mg/dL (20-40) L 03/09/23 14:51 Urine Color Colorless (Yellow) 03/04/23 14:35 Urine Clarity Clear (Clear) 03/04/23 14:35 Urine pH 7.5 (5.0-7.0) H 03/04/23 14:35 Ur Specific Ethel 1.007 (1.005-1.030) 03/04/23 14:35 Glucose (UA)(Auto) Negative (Negative) 03/04/23 14:35 Urine Ketones 1+ (Negative) H 03/04/23 14:35 Urine Blood 1+ (Negative) H 03/04/23 14:35 Urine Nitrite Negative (Negative) 03/04/23 14:35 Urine Bilirubin Negative (Negative) 03/04/23 14:35 Urine Urobilinogen Normal (Normal) 03/04/23 14:35 Ur Leukocyte Esterase Negative Bam/uL (Negative) 03/04/23 14:35 Urine RBC 5-10 /HPF (None Seen) H 03/04/23 14:35 Urine WBC <5 /HPF (<5) 03/04/23 14:35 Ur Squamous Epith Cells <5 /HPF (None Seen) 03/04/23 14:35 U Non-Squamous Epi Cells <5 /HPF (None Seen) 03/04/23 14:35 Urine Bacteria None seen /HPF (<20) 03/04/23 14:35 Urine Culture Reflexed Not needed 03/04/23 14:35 Urine Total Protein Negative (Negative) 03/04/23 14:35 Weight: 120 lb Wound Present: No Closed Surgical Incision Present: Yes Negative Pressure Wound Therapy Present: No Physician Update: Labs reviewed and are stable. She has reflux issues to be followed her GI doc. Scored 15 on admission BIMS. Making fair overall progress with all therapy and will be discharged home in the AM. Will have outpatient at [facility]. Independent walking 500' and up and down 15 steps. Med all ADL goals. Summary: Patient's care plan and terminal operator goals have been reviewed and revised as necessary. Please see the Rehabilitation Signature page for all necessary sig natures.
[2023-03-11 04:35] LABS: Potassium 3.9 mEq/L (3.5-5.1)
[2023-03-11] MEDS: SUCRALFATE 1 GM TABLET PO SCH (06:56)
[2023-03-11 06:57] VITALS: BP 145/88; TEMP 97.6
[2023-03-11] MEDS: PANTOPRAZOLE 40MG TABLET PO SCH (06:57)
[2023-03-11] MEDS: LIDOCAINE 4% PATCH TOP SCH (08:44)
[2023-03-11] MEDS: SODIUM CHLORIDE 1 GM TAB PO SCH (08:45)
[2023-03-11] MEDS: CRANBERRY FRUIT EXTRACT 200 MG CAP PO SCH (08:46)
[2023-03-11] MEDS: FOLIC ACID 1 MG TABLET PO SCH (08:46)
[2023-03-11] MEDS: VITAMIN D 1000 UNIT TAB PO SCH (08:46)
[2023-03-11] MEDS: ramipriL 5 MG CAP PO SCH (08:46)
[2023-03-11] MEDS: POTASSIUM CL SA 10 MEQ TAB PO SCH (08:47)
[2023-03-11] MEDS: FAMOTIDINE 20 MG TAB PO SCH (08:47)
[2023-03-11] MEDS: predniSONE 10 MG TAB PO SCH (08:47)
[2023-03-11] MEDS: APIXABAN 2.5 MG TABLET PO SCH (08:47)
[2023-03-11] MEDS: ERYTHROMYCIN 200 MG/5ML 100ML PO SCH (09:30)
[2023-03-11] MEDS: ENSURE CLEAR 200 ML CAN PO SCH (11:00)
== END 2023-03-11 10:30 | disposition home or self-care (01) | DRG 948 ==
LOC: 5TH 03-04 11:10
PROVIDERS: ADMIT Psychiatry & Neurology Neurology with Special Qualifications in Child Neurology; ATTEND Psychiatry & Neurology Neurology with Special Qualifications in Child Neurology
DX: R53.81 Other malaise (principal); J90 Pleural effusion, not elsewhere classified; F05 Delirium due to known physiological condition; R11.0 Nausea; I10 Essential (primary) hypertension; M81.0 Age-related osteoporosis without current pathological fracture; M06.9 Rheumatoid arthritis, unspecified; D64.9 Anemia, unspecified
CPT/HCPCS: 36415; 80048; 81001; 82040; 83735; 84134; 85025; 87077; 87086; 87088; 87186; 92526; 92610; 94010; 97110; 97116; 97161; 97165; 97530; J2001; J7512; Q0162